=== PATIENT | male | born 1955 | race Caucasian/White ===

== ENCOUNTER → 2019-08-10 08:35 | Outpatient (CLI) | payer OTHER, SELFPAY ==
[2018-08-16 10:20] VITALS: BMI 27.2
[2019-08-10 11:03] LABS: AST(SGOT) 23 U/L (15-37); Alanine Aminotransfer ALT/SGPT 32 U/L (16-61); Albumin, Serum 3.8 g/dL (3.2-5.0); Alkaline Phosphatase 44 U/L (45-117); Bilirubin, Direct 0.14 mg/dL (0.00-0.30); Cholesterol 227 mg/dL (200); Globulin 3.1 g/dL (2.2-4.2); High Density Lipoprotein 59 mg/dL; Protein, Total 6.9 g/dL (6.4-8.2); Triglycerides 49 mg/dL; Very Low Density Lipoprotein 10 mg/dL (5-40)
== END ==
PROVIDERS: Nurse Practitioner Family; Family Provider Family Medicine; PCP Family Medicine; Referring Provider Internal Medicine Cardiovascular Disease; Visit Provider Internal Medicine Cardiovascular Disease
DX: E78.5 Hyperlipidemia, unspecified (principal)
CPT/HCPCS: 36415; 80061; 80076

== ENCOUNTER → 2020-08-22 08:16 | Outpatient (CLI) | payer BC, SELFPAY ==
[2019-08-17 13:27] VITALS: BMI 25.8
[2020-08-22 10:08] LABS: AST(SGOT) 25 U/L (15-37); Alanine Aminotransfer ALT/SGPT 36 U/L (16-61); Albumin, Serum 3.6 g/dL (3.2-5.0); Alkaline Phosphatase 43 U/L (45-117); Bilirubin, Direct 0.11 mg/dL (0.00-0.30); Cholesterol 205 mg/dL (200); Globulin 2.9 g/dL (2.2-4.2); High Density Lipoprotein 49 mg/dL; Protein, Total 6.5 g/dL (6.4-8.2); Triglycerides 64 mg/dL; Very Low Density Lipoprotein 13 mg/dL (5-40)
[2020-08-22 10:12] LABS: Anion Gap 5 (5-15); BUN 13 mg/dL (7-18); BUN/Creat Ratio 13.8 RATIO (10-20); Calcium,Total 8.8 mg/dL (8.5-10.1); Chloride 108 mmol/L (98-107); Creatinine, Serum 0.94 mg/dL (0.70-1.30); EST Glomerular Filtration Rate 86 mL/min (>60); Est Glom Filt Rate - Afr Amer 104 mL/min (>60); Glucose 97 mg/dL (74-106); PSA,Total - Annual Screen 0.83 ng/mL (0.00-4.00); Potassium 4.1 mmol/L (3.5-5.1); Sodium Level 142 mmol/L (136-145)
== END ==
PROVIDERS: PCP Family Medicine; Referring Provider Internal Medicine Cardiovascular Disease; Visit Provider Internal Medicine Cardiovascular Disease
DX: E78.5 Hyperlipidemia, unspecified (principal); Z13.1 Encounter for screening for diabetes mellitus; Z12.5 Encounter for screening for malignant neoplasm of prostate
CPT/HCPCS: 36415; 80048; 80061; 80076; 84153; G0103

== ENCOUNTER → 2020-09-18 06:13 | Outpatient (CLI) | payer BC, SELFPAY ==
[2020-08-27 15:08] VITALS: BMI 27.1
[2020-08-29 12:55] VITALS: BMI 27.1
--- NOTE | 2020-09-18 18:09 | STRESSREP_ITS ---
Stress Test Report Exercise myocardial perfusion stress test. 64-year-old man with a history of chest pain. Stress protocol: Resting EKG demonstrates sinus bradycardia with a rate of 55 bpm resting blood pressure is 142/82 mmHg. The patient exercised according to regular Ramez protocol for a total duration of 9 minutes. The maximum heart rate attained was 142 bpm which was 90% of maximum predicted heart rate the maximum workload was 10.1 metabolic equivalents. At rest there were no ST or T wave changes noted to suggest ischemia at peak exercise upsloping ST changes only were noted we did not meet the criteria for ischemia. No clinical angina was noted the test was terminated due to leg fatigue. The resting blood pressure was 142/82 with a pea k blood pressure 192/82 mmHg. Myocardial perfusion protocol. 12.0 mCi of technetium 99m sestamibi was injected at rest. The patient exercised according to regular Ramez protocol for 9 minutes at peak exercise 36.0 mCi of technetium 99m sestamibi was injected stress images were obtained stress and rest images were reconstructed and compared in the short axis vertical long horizontal long axis. Gated images were also obtained per Perfusion SPECT analysis: Review of the images demonstrate normal uptake of tracer noted in all areas of the myocardium the resting images similar demonstrate normal uptake of tracer noted in all areas of the myocardium. No reversibility is noted to suggest ischemia no previous infarct is noted. Gated SPECT analysis: The gated ejection fraction is 68%. Conclusion: Normal exercise myocardial perfusion stress test at a high workload. Preserved ejection fraction.
== END ==
PROVIDERS: PCP Family Medicine; Referring Provider Physician Assistant Medical; Visit Provider Physician Assistant Medical
DX: R00.2 Palpitations (principal); R06.00 Dyspnea, unspecified; E78.5 Hyperlipidemia, unspecified; Z82.49 Family history of ischemic heart disease and other diseases of the circulatory system
CPT/HCPCS: 78452; 93017; A9500; A4216

== ENCOUNTER → 2021-08-26 09:14 | Outpatient (CLI) | payer BC, SELFPAY ==
[2021-08-26 10:47] LABS: PSA,Total - Annual Screen 1.78 ng/mL (0.00-4.00)
[2021-08-27 13:23] LABS: Cholesterol 207 mg/dL (200); High Density Lipoprotein 46 mg/dL; Triglycerides 78 mg/dL; Very Low Density Lipoprotein 16 mg/dL (5-40)
== END ==
PROVIDERS: PCP Family Medicine; Referring Provider Family Medicine; Visit Provider Family Medicine
DX: Z12.5 Encounter for screening for malignant neoplasm of prostate (principal); E78.5 Hyperlipidemia, unspecified
CPT/HCPCS: 36415; 80061; 84153; G0103

== ENCOUNTER → 2022-11-30 | Outpatient (CLI) | payer MEDICARE, SELFPAY ==
[2022-11-30 10:49] LABS: ALB/GLOB Ratio 1.4 RATIO (0.9-2.4); AST(SGOT) 22 U/L (15-37); Alanine Aminotransfer ALT/SGPT 29 U/L (16-61); Albumin, Serum 3.9 g/dL (3.2-5.0); Alkaline Phosphatase 39 U/L (45-117); Anion Gap 7 (5-15); BUN 15 mg/dL (7-18); Calcium,Total 9.2 mg/dL (8.5-10.1); Chloride 109 mmol/L (98-107); Cholesterol 210 mg/dL (200); EST Glomerular Filtration Rate 80 mL/min (>60); Est Glom Filt Rate - Afr Amer 96 mL/min (>60); Globulin 2.8 g/dL (2.2-4.2); Glucose 96 mg/dL (74-106); High Density Lipoprotein 51 mg/dL; Potassium 4.4 mmol/L (3.5-5.1); Protein, Total 6.7 g/dL (6.4-8.2); Sodium Level 143 mmol/L (136-145); Triglycerides 72 mg/dL; Very Low Density Lipoprotein 14 mg/dL (5-40)
== END | disposition home or self-care (01) ==
LOC: MTLAB 08:44
PROVIDERS: PCP Family Medicine; Referring Provider Physician Assistant Medical; Visit Provider Physician Assistant Medical
DX: R03.0 Elevated blood-pressure reading, without diagnosis of hypertension (principal); E78.5 Hyperlipidemia, unspecified
CPT/HCPCS: 36415; 80053; 80061

== ENCOUNTER → 2023-08-03 | Outpatient (CLI) | payer MEDICARE, SELFPAY ==
[2023-08-03 09:52] LABS: ALB/GLOB Ratio 1.1 RATIO (0.9-2.4); AST(SGOT) 19 U/L (15-37); Alanine Aminotransfer ALT/SGPT 31 U/L (16-61); Albumin, Serum 3.6 g/dL (3.2-5.0); Alkaline Phosphatase 38 U/L (45-117); Anion Gap 4 (5-15); BUN 13 mg/dL (7-18); Calcium,Total 8.9 mg/dL (8.5-10.1); Chloride 110 mmol/L (98-107); Cholesterol 200 mg/dL (200); EST Glomerular Filtration Rate 80 mL/min (>60); Est Glom Filt Rate - Afr Amer 96 mL/min (>60); Globulin 3.3 g/dL (2.2-4.2); Glucose 104 mg/dL (74-106); High Density Lipoprotein 49 mg/dL; Protein, Total 6.9 g/dL (6.4-8.2); Sodium Level 143 mmol/L (136-145); Triglycerides 70 mg/dL; Very Low Density Lipoprotein 14 mg/dL (5-40)
== END | disposition home or self-care (01) ==
LOC: LAB 09:07
PROVIDERS: PCP Family Medicine; Referring Provider Physician Assistant Medical; Visit Provider Physician Assistant Medical
DX: E78.5 Hyperlipidemia, unspecified (principal); I10 Essential (primary) hypertension
CPT/HCPCS: 36415; 80053; 80061

== ENCOUNTER → 2023-11-25 | Outpatient (CLI) | payer MEDICARE, SELFPAY ==
[2023-11-25 12:49] LABS: PSA,Total - Annual Screen 1.97 ng/mL (0.00-4.00)
== END | disposition home or self-care (01) ==
LOC: MTLAB 10:38
PROVIDERS: PCP Family Medicine; Referring Provider Family Medicine; Visit Provider Family Medicine
DX: Z12.5 Encounter for screening for malignant neoplasm of prostate (principal)
CPT/HCPCS: 36415; 84153; G0103

== ENCOUNTER → 2024-08-04 | Outpatient (CLI) | payer MEDICARE, SELFPAY ==
[2024-08-04 10:16] LABS: Absolute Lymphocyte Count 0.87 X10^3/uL (0.83-4.51); Absolute Neutrophil Count 2.8 X10^3/uL (2.0-7.7); Basophil# 0.04 X10^3/uL; Basophil% 0.9 % (0-1); Eosinophil# 0.23 X10^3/uL; Eosinophils% 5.2 % (0-5); Hematocrit 40.9 % (40-54); Hemoglobin 14.1 g/dL (13.0-16.5); Lymphocyte # 0.87 X10^3/ul (0.83-4.51); Lymphocyte % 19.6 % (19-41); Mean Corp Hgb Conc 34.5 g/dL (32-36); Mean Corpuscular Hgb 31.5 pg (27.0-32.0); Mean Corpuscular Volume 91.5 fL (80-94); Mean Platelet Vol. 9.4 fl (6.2-12.0); Monocyte# 0.53 X10^3/uL; Monocyte% 11.9 % (0-10); NRBC Flagged by Analyzer 0 % (0-5); Neutrophil # 2.76 X10^3/uL (2.7-7.7); Neutrophil % 62.2 % (47-70); Platelet Count 221 K/mm3 (150-450); RBC Distribution Width CV 12.7 % (11.6-14.6); RBC Distribution Width SD 42.7 fl (35.1-43.9); Red Blood Count 4.47 M/mm3 (4.6-6.2); White Blood Count 4.4 K/mm3 (4.4-11.0)
[2024-08-04 11:08] LABS: AST(SGOT) 26 U/L (15-37); Alanine Aminotransfer ALT/SGPT 33 U/L (16-61); Albumin, Serum 3.1 g/dL (3.2-5.0); Alkaline Phosphatase 86 U/L (45-117); Bilirubin, Direct 0.11 mg/dL (0.00-0.30); Cholesterol 400 mg/dL (200); Globulin 3.4 g/dL (2.2-4.2); High Density Lipoprotein 44 mg/dL; Protein, Total 6.5 g/dL (6.4-8.2); Triglycerides 141 mg/dL; Very Low Density Lipoprotein 28 mg/dL (5-40)
[2024-08-04 11:17] LABS: ALB/GLOB Ratio 0.9 RATIO (0.9-2.4); AST(SGOT) 25 U/L (15-37); Alanine Aminotransfer ALT/SGPT 32 U/L (16-61); Albumin, Serum 3.2 g/dL (3.2-5.0); Alkaline Phosphatase 85 U/L (45-117); Anion Gap 5 (5-15); BUN 11 mg/dL (7-18); BUN/Creat Ratio 13.9 RATIO (10-20); Calcium,Total 9.2 mg/dL (8.5-10.1); Chloride 108 mmol/L (98-107); Cholesterol 397 mg/dL (200); Creatinine, Serum 0.79 mg/dL (0.70-1.30); EST Glomerular Filtration Rate 103 mL/min (>60); Est Glom Filt Rate - Afr Amer 125 mL/min (>60); Globulin 3.4 g/dL (2.2-4.2); Glucose 118 mg/dL (74-106); High Density Lipoprotein 46 mg/dL; Potassium 4.1 mmol/L (3.5-5.1); Protein, Total 6.6 g/dL (6.4-8.2); Sodium Level 141 mmol/L (136-145); Triglycerides 139 mg/dL; Very Low Density Lipoprotein 28 mg/dL (5-40)
[2024-08-04 15:11] LABS: Vitamin D,25 Hydroxy 39.7 ng/mL
== END | disposition home or self-care (01) ==
LOC: MTLAB 07:56
PROVIDERS: Physician Assistant Medical; PCP Family Medicine; Referring Provider Family Medicine; Visit Provider Family Medicine
DX: E78.5 Hyperlipidemia, unspecified (principal); Z12.5 Encounter for screening for malignant neoplasm of prostate; F32.A Depression, unspecified
CPT/HCPCS: 36415; 80053; 80061; 80076; 82306; 85025

== ENCOUNTER → 2024-12-14 | Outpatient (CLI) | payer MEDICARE, SELFPAY ==
--- NOTE | 2024-12-14 10:15 | RAD_ITS ---
STUDY: X-RAY - LEFT SHOULDER REASON FOR EXAM: Male, 68 years old. Ongoing left shoulder pain. TECHNIQUE: 4 views of the left shoulder. COMPARISON: None. FINDINGS: Normal glenohumeral articulation. There is hypertrophic acromioclavicular arthrosis. Normal acromion. There is enthesopathic subcortical cyst formation of the greater tuberosity of the humeral head. The soft tissue structures are unremarkable. There is no demonstrated fracture. Normal visualized pulmonary apex. RAD/Shoulder min 2 Views IMPRESSION: Hypertrophic acromioclavicular arthrosis. No demonstrated fracture. Electronically Signed: Sami Soctt MD at 12:12 EST ,
== END | disposition home or self-care (01) ==
LOC: MTRAD 10:10
PROVIDERS: PCP Family Medicine; Referring Provider Family Medicine; Visit Provider Family Medicine
DX: M25.512 Pain in left shoulder (principal)
CPT/HCPCS: 73030

== ENCOUNTER → 2025-01-08 | Outpatient (CLI) | payer MEDICARE, SELFPAY ==
--- NOTE | 2025-01-08 07:50 | AAAS_ITS ---
Reason For Study Reason For Study: Screening Aorta Measurements Aorta Doppler Measurements Proximal aorta measures1.98 x 1.98cm. in cross-sectional Peak systolic flow velocities within the proximal aorta axis. measure 86.8 cm/sec. Proximal aorta measures2.00cm. in longitudinal axis. Peak systolic flow velocities within the mid aorta measure Mid aorta measures1.49 x 1.49cm. in cross-sectional axis. 99.5 cm/sec. Mid aorta measures1.48cm. in longitudinal axis. Peak systolic flow velocities within the distal aorta Distal aorta measures1.38 x 1.41cm. in cross-sectional axis.measure 133.9 cm/sec. Distal aorta measures1.37cm. in longitudinal axis. Left Iliac Artery Left iliac artery measures 0.93 x 0.92 cm. in the cross-sectional axis. Left iliac artery measures 0.92 cm. in the longitudinal axis. Peak systolic velocity in the left iliac artery measures 129.3 cm/sec. Right Iliac Artery Right iliac artery measures 0.93 x 0.94 cm. in the cross-sectional axis. Right iliac artery measures 0.88 cm. in the longitudinal axis. Peak systolic velocity in the right iliac artery measures 131.5 cm/sec. Procedure Aorta IVC Iliac vasculature or bypass grafts [id number]. Exam performed in department. VL/AAA Screening Interpretation Summary The dimensions of the intra-abdominal aorta appear normal, without evidence of aneurysmal dilatation. The iliac arteries also appear normal in caliber bilaterally. The intra-abdominal aorta and iliac arteries appear patent, demonstrating normal, pulsatile arterial flow and normal peak systolic velocities. Ordering Physician: Jimmie Coffman Referring Physician: Jimmie Coffman Performed By: Leti Garzon RVT
== END | disposition home or self-care (01) ==
LOC: CVS 07:49
PROVIDERS: PCP Family Medicine; Referring Provider Family Medicine; Visit Provider Family Medicine
DX: Z13.6 Encounter for screening for cardiovascular disorders (principal)
CPT/HCPCS: 76706

== ENCOUNTER → 2025-02-20 | Outpatient (CLI) | payer MEDICARE, SELFPAY ==
--- NOTE | 2025-02-20 16:45 | MRI_ITS ---
EXAM: Noncontrast left shoulder MRI CLINICAL HISTORY: Left shoulder pain. Injury 1 year COMPARISON: None TECHNIQUE: Multi planar, multi sequence noncontrast MR imaging of the left shoulder is performed. FINDINGS: High-grade full-thickness tear of the supraspinatus the tendon is retracted to the level of the glenoid process. High-grade tears of the infraspinatus and subscapularis. The biceps tendon is not normally located within the bicipital groove very small portion of the tendon is identified in the distal groove. A subacromial/subdeltoid effusion is present. High-grade tear of the subscapularis tendon. The residual tendon is intermediate signal in its distal aspect and has a wavy appearance. The inferior glenohumeral ligament is intact. The glenoid labrum is intact. MRI/Upper Ext Joint Only(Routine) IMPRESSION: Full thickness complete tear of the supraspinatus tendon which is retracted to the level of the glenoid process. high-grade tears and tendinosis of the remainder of the rotator cuff. Tear of the biceps tendon. [facility]
== END | disposition home or self-care (01) ==
LOC: MRI 15:48
PROVIDERS: PCP Family Medicine; Referring Provider Family Medicine; Visit Provider Family Medicine
DX: M25.512 Pain in left shoulder (principal)
CPT/HCPCS: 73221

== ENCOUNTER → 2025-10-17 | Outpatient (CLI) | payer MEDICARE, SELFPAY ==
[2025-10-17 13:08] LABS: Cholesterol 449 mg/dL (<=200); Low Density Lipoprotein Calc. 362 mg/dL; Triglycerides 172 mg/dL; Very Low Density Lipoprotein 34 mg/dL (5-40); cholesterol:hdl ratio screen 8.91
== END | disposition home or self-care (01) ==
LOC: LAB 08:57
PROVIDERS: PCP Family Medicine; Referring Provider Student in an Organized Health Care Education/Training Program; Visit Provider Student in an Organized Health Care Education/Training Program
DX: E78.5 Hyperlipidemia, unspecified (principal)
CPT/HCPCS: 36415; 80061

== ENCOUNTER 2025-11-18 18:09 | Observation (INO) | payer MEDICARE, SELFPAY ==
[2025-11-18 18:10] VITALS: BP 171/85; PULSE 72; RESP 16; TEMP 36.8; O2SAT 100; BMI 25.9
--- NOTE | 2025-11-18 18:20 | EDS_ITS ---
HPI History of Present Illness Chief Complaint: Confusion [facility] Medical History (Updated 11/18/25 @ 21:[address] Milagros García MD) Encounter for examination required by Department of Transportation (DOT) Left rotator cuff tear Essential hypertension (~10/17/25) HLD (hyperlipidemia) Home Medications ?Medication ?Instructions ?Recorded ?Last Taken ?Type citalopram 40 mg tablet 40 mg PO DAILY 04/02/23 Unkn own History lisinopril 30 mg tablet 30 mg PO QDAY PRN htn Unknown History rosuvastatin 40 mg tablet 40 mg PO DAILY #90 tabs 04/15 Unknown Rx Allergy/AdvReac Type Severity Reaction Status Date / Time No Known Allergies Allergy Verified 11/18/25 18:11 Family History Father CAD (coronary artery disease) Mother HLD (hyperlipidemia) Brother Myocardial infarction Brother Myocardial infarction Surgical History History of hernia surgery Social History Smoking Status: Never smoker alcohol intake: former year quit: 2018 EXAM Physical Exam Const Vital Signs: 11/18/25 18:10 11/18/25 19:10 11/18/25 20:17 Temperature 98.2 F Temperature Source Oral Pulse Rate 72 62 57 L Respiratory Rate 16 18 11 L Blood Pressure 171/85 H 158/85 H 161/88 H Blood Pressure Mean 113 109 112 Pulse Ox 100 98 98 Oxygen Delivery Method Room Air Room Air 11/18/25 20:44 Temperature 98.2 F Temperature Source Pulse Rate 57 L Respiratory Rate 11 L Blood Pressure 161/88 H Blood Pressure Mean 112 Pulse Ox 98 Oxygen Delivery Method MDM MDM MDM Narrative Medical decision making narrative: HISTORY OF PRESENT ILLNESS: Chief complaint: Confusion 69-year-old male history of hypertension, hyperlipidemia presents with confusion. He is coming by his son and daughter. They state this afternoon he all of a sudden became amnestic to the earlier events in the day. They deny any trouble with speech, facial drooping, focal weakness falls or trauma. No recent illnesses. The patient denies chest pain, shortness of breath. Denies any urinary complaints peer denies any drug use. Denies history of similar events. Denies history of seizures REVIEW OF SYSTEMS: Pertinent positives: Confusion Pertinent negatives: Chest pain, syncope, nausea vomiting, recent illness PHYSICAL EXAM: Nursing triage notes reviewed, Vital signs reviewed Constitutional: please see [facility] HENT: MMM Eyes: Pupils equal round and reactive to light, Extraocular muscles intact Neck: No stridor, no JVD, full neck ROM Lungs: Clear to auscultation, No wheezing or rales. No increased work of breathing, no conversational dyspnea, no accessory muscle use, no nasal flaring. No respiratory distress noted Heart: Regular rate and rhythm, No murmurs, No rubs and No gallops, 2+ distal pulses (radial, femoral, posterior tibial) in all extremities Abdomen: Soft, there is no tenderness, rigidity, rebound or guarding, no obvious peritoneal signs, no palpable pulsatile abdominal masses, no auscultated abdominal bruit : No CVAT Extremities: No edema Neuro: Alert and oriented to person place and time although he required some prompting to know the correct his correct age and the correct month. He had no focal deficits. He had no cranial nerve deficits. He had 5 of 5 strength in bilateral upper and lower extremities. And intact sensation bilateral upper and lower extremities. No ataxia. He had no aphasia or dysarthria. Skin: No rash or lesions noted MEDICAL DECISION MAKING: Chief Complaint: please see [facility] External records reviewed: Reviewed prior imaging. Factors affecting care: As per [facility] Social determinants of health: Denies drugs History obtained from others: Family Consults: Internal medicine Dr. Sander Sharma [facility] Narrative: Patient was initially hemodynamically stable, afebrile and nontoxic-appearing. My initial neurologic exam was intact. He had an NIH of 0. Because his NIH was 0 for me I did not activate a stroke team. He was not a candidate for TNK or thrombectomy at this time I considered the following differential diagnosis: ICH, acute CVA, TIA, transient global amnesia, focal seizure, toxic or metabolic or infectious encephalopathy I obtained a broad lab and imaging work to further determine if the patient was suffering from a life-threatening etiology. ALL IMAGES (IF OBTAINED) HAVE BEEN PERSONALLY REVIEWED AND INTERPRETED BY MYSELF. EKG with normal sinus rhythm rate 63, left activation, normal intervals, no STEMI I have personally reviewed the patient's chest x-ray. Chest x-ray is unremarkable for pulmonary edema, pneumothorax, pneumonia or focal cardiopulmonary abnormality. CT scan of the head shows no ICH or stroke CT of the head neck shows no evidence of large vessel occlusion No coagulopathy Urine drug screen negative for toxic ingestion Serum alcohol negative CBC without leukocytosis, severe anemia, no thrombocytopenia. CMP without evidence of acute kidney injury, significant electrolyte abnormality, anion gap to suggest end organ hypo-perfusion, no evidence of metabolic acidosis with a normal bicarbonate, no evidence of hepatobiliary obstructive pathology. Thyroid studies suggest no evidence of hyper or hypothyroidism Urinalysis shows no evidence of urinary inflammation suggestive of UTI The synthesis of the patient's history, physical exam, labs images suggest no acute finding however given his altered mental status patient to be admitted for further observation and likely confirmatory MRI. His presentation may be related to transient global amnesia. Discussed with hospitalist agreed to admit the patient. The patient and/or family, caregivers express understanding. The patient and/or family, caregivers agrees with the plan. Shared decision making: I will have a discussion with the patient and or visitors regarding risk/benefits of further testing or admission. They will be made aware of of the risk/benefits inherent in this decision they will be given the opportunity to voice understanding. Total critical care time today provided was at least 0 minutes. This excludes separately billable procedures. Critical care time (if documented) is secondary to the patient having high probability of clinically significant/life threatening deterioration in the patient's condition which required my urgent intervention. Impression: 1. Altered mental status 2. History of hypertension 3. History of hyperlipidemia Dispo: Admit to [facility] This note was generated with [employer] dictation software. It may contain incorrect words, spelling, and punctuation that were not noted in review of the chart prior to signing. Lab Data Labs: Laboratory Results - last 24 hr 11/18/25 11/18/25 11/18/25 18:32 19:05 19:14 WBC 5.7 RBC 4.75 Hgb 14.5 Hct 40.7 MCV 85.7 MCH 30.5 MCHC 35.6 RDW Std Deviation 39.4 RDW Coeff of [place] 12.7 Plt Count 249 MPV 9.0 Immature Gran % (Auto) 0.200 Neut % (Auto) 62.6 Lymph % (Auto) 21.9 Rice % (Auto) 11.7 H Eos % (Auto) 2.6 Baso % (Auto) 1.0 Absolute Neuts (auto) 3.6 Absolute Lymphs (auto) 1.25 Nucleated RBC % 0 PT 12.9 INR 1.0 APTT 28.5 Sodium 140 Potassium 4.0 Chloride 104 Carbon Dioxide 25.5 Anion Gap 11 BUN 14 Creatinine 0.89 Estim Creat Clear Calc 74.27 Est GFR (MDRD) Non-Af 93 BUN/Creatinine Ratio 15.2 Glucose 84 Calcium 9.5 Total Bilirubin 0.39 AST 39 H ALT 45 Alkaline Phosphatase 78 Ammonia 28.4 Total Protein 6.7 Albumin 4.2 Globulin 2.5 Albumin/Globulin Ratio 1.6 TSH 5.900 H Free T4 0.80 Free T3 pg/dL 2.9 Urine Color Straw Urine Clarity Clear Urine pH 7.0 Ur Specific [place] 1.010 Urine Protein 15 H Urine Glucose (UA) Normal Urine Ketones Negative Urine Occult Blood Negative Urine Nitrite Negative Urine Bilirubin Negative Urine Urobilinogen Normal Ur Leukocyte Esterase Negative Urine RBC 0 SEEN Urine WBC 0 SEEN Ur Squamous Epith Cells 0 SEEN Urine Bacteria 1+ Urine Mucus 0 SEEN Urine Opiates Screen NEGATIVE U Buprenorphine Qual NEGATIVE Ur Oxycodone Screen NEGATIVE Urine Methadone Screen NEGATIVE Urine Fentanyl Screen NEGATIVE Ur Barbiturates Screen NEGATIVE Ur Phencyclidine Scrn NEGATIVE Ur Amphetamines Screen NEGATIVE U Benzodiazepines Scrn NEGATIVE Urine Cocaine Screen NEGATIVE U Cannabinoids Screen NEGATIVE Ethyl Alcohol < 10.1 Radiography Diagnostic Testing: Clinical Impression(s) from Imaging Studies Brain CT 11/18/25 18:40 IMPRESSION: No acute intracranial abnormalities. Reading Location: [facility] Head/Neck CTA 11/18/25 18:40 IMPRESSION: No acute vascular abnormalities of the head or neck. Reading Location: [facility] Chest X-Ray 11/18/25 18:45 IMPRESSION: No acute cardiopulmonary findings. Reading Location: [facility] Discharge Plan Disposition Disposition: Acute Care Hospital [facility] Discharge Date/Time: 11/18/25 21:03
--- NOTE | 2025-11-18 18:32 | EKG12_ITS ---
Test Reason : DYSRHYTHMIA Blood Pressure : */* mmHG Vent. Rate : 63 BPM Atrial Rate : 63 BPM P-R Int : 166 ms QRS Dur : 90 ms QT Int : 406 ms P-R-T Axes : 50 -15 13 degrees QTcB Int : 415 ms Normal sinus rhythm Normal ECG Confirmed by Horacio Reynoso ([id number]), newspaper copy editor GUILLERMO SAUNDERS ([id number]) on 11/20/2025 10:00:32 AM Referred By: Confirmed By: Horacio Reynoso
--- NOTE | 2025-11-18 18:40 | CT_ITS ---
PROCEDURE: BRAIN/HEAD WITHOUT CONTRAST 11/18/2025 REASON FOR EXAM: AMS TECHNIQUE: Procedure Code: CTBR Modality: CT Procedure: BRAIN/HEAD WITHOUT CONTRAST Coronal and Sagittal reconstruction series were provided. One or more dose reduction techniques were used (e.g., Automated exposure control, adjustment of the mA and/or kV according to patient size, use of iterative reconstruction technique. RADIATION DOSE SUMMARY: DLP: 1428.27 mGycm FINDINGS: Brain: Normal CSF Spaces: Normal Sinuses/Mastoids: Clear at visualized levels Bones: No fractures. CT/Brain/Head without Contrast IMPRESSION: No acute intracranial abnormalities. Reading Location: [id number]
--- NOTE | 2025-11-18 18:40 | CT_ITS ---
PROCEDURE: CTA HEAD AND NECK W/ CONTRAST 11/18/2025 REASON FOR EXAM: AMS TECHNIQUE: Procedure Code: CTCTA.HDNCK Modality: CT Procedure: CTA HEAD AND NECK W/ CONTRAST Multiplanar Sagittal and Coronal images were obtained. One or more dose reduction techniques were used (e.g., Automated exposure control, adjustment of the mA and/or kV according to patient size, use of iterative reconstruction technique). RADIATION DOSE SUMMARY: DLP: 1428.27 mGycm FINDINGS: The aortic arch configuration is unremarkable. The bilateral subclavian arteries are well opacified with no filling defects or occlusive lesions. Both vertebral arteries arise from their respective subclavian arteries. The left vertebral artery is dominant. The vertebral arteries are patent. The basilar artery is unremarkable. The bilateral bakery machine mechanic supervisor are unremarkable. Both common carotid arteries are well opacified with no significant atherosclerotic disease at either carotid bulb. Both internal carotid arteries are well opacified. Both MCAs and both ACAs are well opacified. There are no aneurysms. There are no dissections. The lung apices are unremarkable. CT/CTA Head AND Neck W/ Contrast IMPRESSION: No acute vascular abnormalities of the head or neck. Reading Location: [id number]
[2025-11-18 18:43] LABS: Hematocrit 40.7 % (40-54); Hemoglobin 14.5 g/dL (13.0-16.5); Immature Granulocytes Count 0.010 X10^3/uL (0.0-0.0); Mean Corp Hgb Conc 35.6 g/dL (32-36); Mean Corpuscular Volume 85.7 fL (80-94); Mean Platelet Vol. 9.0 fl (6.2-12.0); NRBC Flagged by Analyzer 0 % (0-5); Platelet Count 249 K/mm3 (150-450); RBC Distribution Width CV 12.7 % (11.6-14.6); RBC Distribution Width SD 39.4 fl (35.1-43.9); Red Blood Count 4.75 M/mm3 (4.6-6.2); White Blood Count 5.7 K/mm3 (4.4-11.0)
--- NOTE | 2025-11-18 18:45 | RAD_ITS ---
PROCEDURE: CHEST 1 VIEW (PORTABLE) 11/18/2025 REASON FOR EXAM: AMS TECHNIQUE: Frontal view of the chest. FINDINGS: There are no focal opacities, pleural effusions, or pneumothoraces. The heart size is unremarkable. The upper abdomen is unremarkable. The osseous structures are intact. RAD/Chest 1 View (Portable) IMPRESSION: No acute cardiopulmonary findings. Reading Location: [id number]
--- OUTSIDE RECORDS SUMMARY | 2025-11-18 18:47 | XMS RPT_ITS | CCD ---
Author Organization [facility] Care Team Providers Care Bundle Cutter Name Role Phone MD Gibbons Cyril S Unavailable KB Jane, Radha Xiao Unavailable Adithya Kam Unavailable Unavailable Kristen AZEVEDO, Corina Tatum Unavailable Unavailable KETAN GIBBONS Unavailable Unavailable PURNIMA SCOTT Unavailable Unavailable EMPLOYMENT, PHYSICAL Unavailable Unavailable Adithya Kam Unavailable Unavailable KB Jane, Radha Xiao Unavailable [phone] Adithya Kam Unavailable Unavailable PURNIMA MACEDO DO Primary Care Physician Dr. Purnima Macedo Primary Care Provider Dr. Purnima Macedo Referring Provider PRABHA Rider Attending Provider DO Alondra Licea Primary Care Provider DO Alondra Licea Referring Provider DO Alondra Licea Primary Care Provider DO Alondra Licea Referring Provider PRABHA Rider Attending Provider DO Alondra Licea Primary Care Provider DO Alondra Licea Referring Provider PRABHA Rider Attending Provider Jimmie Coffman MD Primary Care Provider Jimmie Coffman MD Attending Provider Jimmie Coffman MD Referring Provider Alfred PIERCE, Dr. Jaron Tatum Attending Provider Augustus PIERCE, Jimmie Primary Care Provider Augustus PIERCE, Jimmie Referring Provider Jeovany Castle Attending Provider Augustus, Chalon Referring Unavailable Radha Rider Attending Unavail able Augustus, Chalon Primary Care Unavailable Augustus, Chalon Referring Unavailable Jane PA, Radha Xiao Consulting Unavail able Augustus, Chalon Primary Care Unavailable Augustus, Chalon Attending Unavailable Augustus, Chalon Primary Care Unavailable Augustus, Chalon Attending Unavailable Augustus, Chalon Referring Unavailable Augustus, Chalon Primary Care Unavailable Augustus, Chalon Attending Unavailable Augustus, Chalon Referring Unavailable Jane PA, Radha Xiao Attending Unavail able AnujaAlondra Primary Care Unavailable Alondra Licea Referring Unavailable Augustus, Chalon Primary Care Unavailable Feliz Jacobsen Attending Unavailable Augustus, Chalon Referring Unavailable Augustus, Chalon Primary Care Unavailable Jeovany Castle Attending Unavailable Augustus, Chalon Referring Unavailable Augustus, Chalon Primary Care Unavailable Augustus, Jeremyon Attending Unavailable Augustus, Chalon Referring Unavailable JaneRadha Mcginnis Attending Unavail able Augustus, Chalon Primary Care Unavailable Allergies Allergy Classification Reported Allergen(s) Allergy Type Date of Onset Reaction(s) Facility (1 source) atorvastatin; Translations: [atorvastatin] Drug Allergy [facility] Medications Current Medications Medication Drug Class(es) Dates Sig (Normalized) Sig (Original) citalopram 40 mg oral tablet (18 sources) Serotonin Reuptake Inhibitor Start: 04-02-2023 take 1 tablet by mouth once daily Citalopram 40 mg tablet Active 40 mg PO DAILY April 02, 2023 9:54am Start: 10-07-2020 citalopram 40 mg oral tablet 0 Refill(s) Start Date: 10/07/20 Status: Ordered Start: 08-27-2020 End: 04-02-2023 Citalopram 40 mg tablet Disc ontinued 20 mg PO DAILY August 27, 2020 12:00am April 02, 2023 9:55am Start: 08-27-2020 End: 04-02-2023 take 20 mg by mouth once daily Citalopram Discontinued 20 MG PO DAILY August 26, 2020 11:00pm April 02, 2023 8:55am Start: 05-22-2015 take 1 tablet by wily th once daily CITALOPRAM HYDROBROMIDE 40 MG TABS One tablet by mouth daily CITALOPRAM HYDROBROMIDE [id number] Ketan Gibbons MD Multivitamin (Daily Multi-Vitamin) tablet (5 sources) Start: 08-16-2018 Multivitamin ( Daily Multi-Vitamin) tablet Active 1 {tbl} PO DAILY August 16, 2018 12:00am Start: 08-16-2018 take 1 tablet by wily th once daily Multivitamin (Daily Multi-Vitamin) tablet Active 1 TABLET PO DAILY August 16, 2018 12:00am Start: 08-16-2018 take 1 tablet by wily th once daily Multivitamin (Daily Multi-Vitamin) tablet Active 1 TABLET PO DAILY August 15, 2018 11:00pm Completed/Discontinued Medications Medication Drug Class(es) Dates Sig (Normalized) Sig (Original) aspirin 81 mg delayed release oral tablet (19 sources) Platelet Aggregation Inhibitor, Nonsteroidal Anti-inflammatory Drug Start: 08-16-2018 End: 03-01-2025 take 1 tablet by mouth once daily Aspirin (Adult Aspirin Regimen) 81 mg tablet,delayed release (DR/EC) Discontinued 81 mg PO DAILY August 16, 2018 12:00am March 01, 2025 1:20pm Start: 11-10-2011 take 1 tablet by wily th once daily ASPIRIN 81 MG TABS One tablet by mouth daily ASPIRIN [id number] Adelaida Bennett RN Start: 11-10-2011 take 1 tablet by wily th once daily ASPIRIN 81 MG TABS One tablet by mouth daily ASPIRIN [id number] Adelaida Bennett RN Start: 11-10-2011 take 1 tablet by wily th once daily ASPIRIN EC 81 MG TBEC One tablet by mouth daily ASPIRIN [id number] Corina Peterson RN atorvastatin 40 mg oral tablet (20 sources) HMG-CoA Reductase Inhibitor Start: 10-17-2024 End: 03-01-2025 take 1 tablet by mouth at bedtime Atorvastatin 40 mg tablet Discontinued 40 mg PO AT BEDTIME 90 3 October 17 2024 1:00am March 01, 2025 1:20pm Start: 11-10-2011 End: 05-02-2014 take 1 tablet by mouth once daily LIPITOR 80 MG TABS One tablet by mouth daily ATORVASTATIN CALCIUM [id number] Ketan Gibbons MD fenofibrate 145 mg oral tablet (20 sources) Peroxisome Proliferator Receptor alpha Agonist Start: 07-20-2018 End: 10-17-2024 take 1 tablet by mouth once daily Fenofibrate Nanocrystallized 145 mg tablet Discontinued 145 mg PO DAILY 90 September 21, 2022 10:21am October 17, 2024 11:27am Start: 09-29-2012 take 1 tablet by wily th once daily TRICOR 145 MG TABS One tablet by mouth daily FENOFIBRATE 32955144830 Ketan Gibbons MD ferrous sulfate 325 mg oral tablet (16 sources) Start: 11-10-2011 End: 05-21-2016 take 1 tablet by mouth once daily FERROUS SULFATE 325 (65 Fe) MG TABS One tablet by mouth daily FERROUS SULFATE [id number] Radha Jane PA-C Fish Oils (20 sources) Start: 11-10-2011 End: 05-21-2016 take 2 tablets by mouth once daily FISH OIL CAPS Two tablets by mouth daily OMEGA-3 FATTY ACIDS CAPS 73096056886 Radha Jane PA-C Start: 11-10-2011 take 2 tablets by mo [facility] once daily FISH OIL CAPS Two tablets by mouth daily OMEGA-3 FATTY ACIDS CAPS 34491787489 Niyah Roberts RN Start: 11-10-2011 take 1 tablet by wily once daily FISH OIL CAPS One tablet by mouth daily OMEGA-3 FATTY ACIDS CAPS 43540774788 Adelaida Bennett RN lisinopril 10 mg oral tablet (11 sources) Angiotensin Converting Enzyme Inhibitor Start: 04-02-2023 End: 03-01-2025 take 1 tablet by mouth once daily Lisinopril 10 mg tablet Discontinued 10 mg PO DAILY 90 May 12, 2024 8:55am March 01, 2025 1:20pm Start: 12-04-2022 End: 04-02-2023 take 1 tablet by mouth once daily Lisinopril 5 mg tablet Discontinued 5 mg PO DAILY 90 3 December 04, 2022 1:00am April 02, 2023 10:34am MULTIPLE VITAMIN (5 sources) Start: 11-10-2011 take 1 tablet by mouth once daily MULTIVITAMINS TABS One tablet by mouth daily MULTIPLE VITAMIN [id number] Adelaida Bennett RN MULTIPLE VITAMIN (3 sources) Start: 11-10-2011 take 1 tablet by mouth once daily MULTIVITAMINS TABS One tablet by mouth daily MULTIPLE VITAMIN [id number] Adelaida Bennett RN rosuvastatin calcium 40 mg oral tablet (20 sources) HMG-CoA Reductase Inhibitor Start: 07-20-2018 End: 10-17-2024 take 1 tablet by mouth once daily Rosuvastatin 40 mg tablet Discontinued 40 mg PO DAILY 90 3 July 14, 2023 5:51pm October 17, 2024 11:27am Start: 05-02-2014 take 1 tablet by wily th once daily CRESTOR 40 MG TABS One tablet by mouth daily ROSUVASTATIN CALCIUM [id number] Ketan Gibbons MD Problems Active Problems Problem Classification Problem Date Documented Da te Episodic/Chronic Coronary atherosclerosis and other heart disease (13 sources) Coronary arteriosclerosis; Translations: [Atherosclerotic heart disease of [place] coronary artery without angina pectoris] Onset: 11-10-2011 Resolved: 06-18-2017 06-18-2017 Chronic Disorders of lipid metabolism (18 sources) Hyperlipidemia; Translations: [Hyperlipidemia, unspecified] Onset: 11-10-2011 11-10-2011 Chronic Essential hypertension (9 sources) Essential hypertension; Translations: [Essential (primary) hypertension] Onset: 10-17-2024 12-04-2022 Chronic Other circulatory disease (5 sources) Elevated blood-pressure reading without diagnosis of hypertension; Translations: [Elevated blood-pressure reading, without diagnosis of hypertension] 09-01-2022 Episodic Other circulatory disease (1 source) Elevated blood-pressure reading, without diagnosis of hypertension; Translations: [Elevated blood pressure reading without diagnosis of hypertension] 09-01-2022 Episodic Other connective tissue disease (1 source) Tear of left rotator cuff; Translations: [Unspecified rotator cuff tear or rupture of left shoulder, not specified as traumatic] 03-01-2025 Episodic Unclassified (3 sources) Long-term drug therapy; Translations: [Other intermodal customer service (current) drug therapy] Onset: 11-10-2011 11-10-2011 Past or Other Problems Problem Classification Problem Date Documented Date Episodic/Chronic Other aftercare (5 sources) Other intermodal customer service (current) drug therapy; Translations: [Other intermodal customer service (current) drug therapy] Onset: 11-10-2011 11-10-2011 Episodic Other non-traumatic joint disorders (1 source) Pain in left shoulder; Translations: [Pain in left shoulder] Onset: 02-26-2025 Episodic Other nutritional; endocrine; and metabolic disorders (8 sources) Body mass index (BMI) 26.0-26.9, adult; Translations: [Body mass index (BMI) 26.0-26.9, adult] Onset: 05-21-2016 05-21-2016 Episodic Other screening for suspected conditions (not mental disorders or infectious disease) (1 source) Encounter for screening for cardiovascular disorders; Translations: [Encounter for screening for cardiovascular disorders] Onset: 01-23-2025 Episodic Residual codes; unclassified (8 sources) Family history of ischemic heart disease and other diseases of the circulatory system; Translations: [Family history of ischemic heart disease and other diseases of the circulatory system] Onset: 05-21-2016 05-21-2016 Episodic Results Test Name Value Interpretation Reference Range Facility Urgent Care Visit Reporton 0 07-11-2025 Urgent Care Visit Report [facility] [address] [place] [address] OFFICE VISIT Date of Service: 07/11/25 MR#: [id number] Acct: [id number] Name: SATINDER ABBASI Rep #: [id number] : 1955 Provider: PRABHA Weaver Age/Sex: 69/M [place] [facility] Status: Signed Intake Vital Signs 03/01/25 13:19 Height 5 ft 7 in Weight: 161 lb 8 oz BMI 25.2 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 Allergies No Known Allergies Allergy (Verified 03/01/25 13:20) Have you fallen in the past year?: No [facility] Medical History (Updated 07/11/25 @ 14:35 by Jeovany ARMANDO PA) Encounter for examination required by Department of Transportation (DOT) Left rotator cuff tear Essential hypertension HLD (hyperlipidemia) Surgical History History of hernia surgery Family History Father CAD (coronary artery disease) Mother HLD (hyperlipidemia) Brother Myocardial infarction Brother Myocardial infarction Social History Smoking Status: Former smoker alcohol intake: former year quit: 2018 HPI HPI Details: SATINDER ABBASI, is a 69 M who presents to the office today for Office Procedures Physical Exam Coding PE Coding DOT PE: Yes Coding Level of Care Code Attention Yadira Diagnoses Encounter for examination required by Department of Transportation (DOT) Z02.89 Assessment and Plan Assessment and Plan (1) Encounter for examination required by Department of Transportation (DOT): Status: Acute Clinical Quality Measures Falls Risk Screening/Assistive Devices Have you fallen in the past year?: No 07/11/25 1436 Date Jeovany Mcwilliamsigntran Signature: Date (if applicable) CC: Normal [facility] Orthopedic Visit Reporton Orthopedic Visit Report [facility] [address] [place] [address] [address] [place] [address] OFFICE VISIT Date of Service: 03/01/25 MR#: [id number] Acct: [id number] Name: SATINDER ABBASI Rep #: [id number] : 1955 Provider: Dr. Feliz nieto MD Age/Sex: 69/M [place] [facility] [place]: Signed Intake Vital Signs 10/17/24 10:25 04/10/25 08:43 03/01/25 13:19 Height 5 ft 7 in 5 ft 7 in 5 ft 7 in Weight: 161 lb 8 oz BMI 25.2 Intake Visit Reasons: LEFT SHOULDER Chief Complaint: Left Shoulder Pain Accompanied by: Self Is patient in pain?: Yes Pain scale (1-10): 1 Allergies No Known Allergies Allergy (Verified 03/01/25 13:20) Medications ???Medication ???Instructions ???Recorded ???Confirmed ???Type multivitamin (Daily Multi-Vitamin 1 tab PO DAILY 08/16/18 03/01/25 History tablet) citalopram 40 mg tablet 40 mg PO DAILY 04/02/23 03/01/25 H istory Have you fallen in the past year?: Yes (slipped and fell - tried to catch himself) [facility] Medical History (Updated 03/01/25 @ 13:44 by Feliz Jacobsen MD) Left rotator cuff tear Essential hypertension HLD (hyperlipidemia) Surgical History History of hernia surgery Family History Father CAD (coronary artery disease) Mother HLD (hyperlipidemia) Brother Myocardial infarction Brother Myocardial infarction Social History Smoking Status: Former smoker alcohol intake: former year quit: 2019 HPI LEFT SHOULDER Details: This documentation accurately reflects the service provided and the decisions made by me, Dr. Feliz Jacobsen MD 03/01/25 0908. Part of today???s visit was documented by [ ], acting as scribe. SATINDER ABBASI is a 69 year old M here today for L shoulder pain, weakness. lots of mobility. 2/10 pain. hurts a bit sometimes. once in a while per him. had 2 injures. 1 a year ago pulled on the arm out of a truck. injection helping quite a bit. RHD. Initial injury was 1 year ago and in the fall he reinjured it and then reinjured it again 6 weeks ago. Patient had an injection with Dr. Coffman and it really helped his pain. About a month ago his pain was pretty severe and he was set on needing to have surgery it was so painful. Supplemental Info [facility] [address] [place], [place] [id number] Shoulder min 2 Views MR#: [id number] Acct: [id number] Name: SATINDER ABBASI Rep #: [id number] : 1955 M 68 From: Sami Scott MD PCP: Dr. Jimmie Coffman MD Status: REG CLI Study: Shoulder min 2 Views Date of Exam: 12/14/24 Exam# [id number] Ordering Dr: Jimmie Coffman MD [id number] STUDY: X-RAY - LEFT SHOULDER REASON FOR EXAM: Male, 68 years old. Ongoing left shoulder pain. TECHNIQUE: 4 views of the left shoulder. COMPARISON: None. FINDINGS: Normal glenohumeral articulation. There is hypertrophic acromioclavicular arthrosis. Normal acromion. There is enthesopathic subcortical cyst formation of the greater tuberosity of the humeral head. The soft tissue structures are unremarkable. There is no demonstrated fracture. Normal visualized pulmonary apex. RAD/Shoulder min 2 Views IMPRESSION: Hypertrophic acromioclavicular arthrosis. No demonstrated fracture. Electronically Signed: Sami Scott MD at 12:12 EST , [facility] [address] [place] [id number] Upper Ext Joint Only(Routine) MR#: [id number] Acct: [id number] Name: SATINDER ABBASI Rep #: [id number] : 1955 M 69 From: Kevyn Mccarty DO PCP: Dr. Jimmie Coffman MD Status: REG CLI Study: Upper Ext Joint Only(Routine) Date of Exam: 02/20/25 Exam# [id number] Ordering Dr: Jimmie Coffman MD EXAM: Noncontrast left shoulder MRI CLINICAL HISTORY: Left shoulder pain. Injury 1 year COMPARISON: None TECHNIQUE: Multi planar, multi sequence noncontrast MR imaging of the left shoulder is performed. FINDINGS: High-grade full-thickness tear of the supraspinatus the tendon is retracted to the level of the glenoid process. High-grade tears of the infraspinatus and mai (more content not included)... Normal [facility] Magnetic resonance imaging r eportOrdered By: Kevyn Mccatry on 02-23-2025 Study report [facility] [address] [place] [address] Upper Ext Joint Only(Routine) MR#: [id number] Acct: [id number] Name: SATINDER ABBASI Rep #: [id number] : 1955 M 69 From: Angelito Mccarty DO PCP: Dr. Jimmie Coffman MD Status: REG CL I Study:Upper Ext Joint Only(Routine) Date of Exam: 02/20/25 Exam# [id number] Ordering Dr: Mariposa Coffman MD EXAM: Noncontrast left shoulder MRI CLINICAL HISTORY: Left shoulder pain. Injury 1 year COMPARISON: None TECHNIQUE: Multi planar, multi sequence noncontrast MR imaging of the left shoulder is performed. FINDINGS: High-grade full-thickness tear of the supraspinatus the tendon is retracted to the level of the glenoid process. High-grade tears of the infraspinatus and subscapularis. The biceps tendon is not normallylocated within the bicipital groove very small portion of the tendon is identified in the distal groove. A subacromial/subdeltoi d effusion is present. High-grade tear of the subscapularis tendon. The residual tendon is intermediate signal in its distal aspect and has a wavy appearance. The inferior glenohumeral ligament is intact. The glenoid labrum is intact. MRI/Upper Ext Joint Only(Routine) IMPRESSION: Full thickness complete tear of the supraspinatus tendon which is retracted to the level of the glenoid process. high-grade tears and tendinosis of the remainder of the rotator cuff. Tear of the biceps tendon. Reading Location: [facility] CC: Dr. Jimmie Coffman MD ~ Gore Inserter: Signed [facility] Upper Ext Joint Only(Routine )on 02-20-2025 Upper Ext Joint Only(Routine) [facility] [address] [place], [place] [address] Upper Ext Joint Only(Routine) MR#: [id number] Acct: [id number] Name: SATINDER ABBASI Rep #: [id number] : 1955 M 69 From: Kevyn Mccarty DO PCP: Dr. Jimmie Coffman MD Status: REG CLI Study: Upper Ext Joint Only(Routine) Date of Exam: 0 02/20/25 Exam# [id number] Ordering Dr: Jimmie Coffman MD EXAM: Noncontrast left shoulder MRI CLINICAL HISTORY: Left shoulder pain. Injury 1 year COMPARISON: None TECHNIQUE: Multi planar, multi sequence noncontrast MR imaging of the left shoulder is performed. FINDINGS: High-grade full-thickness tear of the supraspinatus the tendon is retracted to the level of the glenoid process. High-grade tears of the infraspinatus and subscapularis. The biceps tendon is not normally located within the bicipital groove very small portion of the tendon is identified in the distal groove. A subacromial/subdeltoi d effusion is present. High-grade tear of the subscapularis tendon. The residual tendon is intermediate signal in its distal aspect and has a wavy appearance. The inferior glenohumeral ligament is intact. The glenoid labrum is intact. MRI/Upper Ext Joint Only(Routine) IMPRESSION: Full thickness complete tear of the supraspinatus tendon which is retracted to the level of the glenoid process. high-grade tears and tendinosis of the remainder of the rotator cuff. Tear of the biceps tendon. Reading Location: [facility] CC: Dr. Jimmie Coffman MD Gore Inserter: Signed Normal [facility] AAA Screeningon 01-08-2025 AAA Screening [facility] [place] [address] AAA Screening 01/08/25 0820 MR#: [id number] Acct: [id number] Name: SATINDER ABBASI Rep #: [id number] : 1955 69 From: Jaron Simon MD Attending Dr: Dr. Jimmie Coffman MD Status: REG Bonnie BETTY Ordering Dr: Jimmie Coffman MD Date: 01/08/25 Location: [facility] Sex: M C Admitted: Reason For Study Reason For Study: Screening Aorta Measurements Aorta Doppler Measurements Proximal aorta measures1.98 x 1.98cm. in cross-sectional Peak systolic flow velocities within the proximal aorta axis. measure 86.8 cm/sec. Proximal aorta measures2.00cm. in longitudinal axis. Peak systolic flow velocities within the mid aorta measure Mid aorta measures1.49 x 1.49cm. in cross-sectional axis. 99.5 cm/sec. Mid aorta measures1.48cm. in longitudinal axis. Peak systolic flow velocities within the distal aorta Distal aorta measures1.38 x 1.41cm. in cross-sectional axis.measure 133.9 cm/sec. Distal aorta measures1.37cm. in longitudinal axis. Left Iliac Artery Left iliac artery measures 0.93 x 0.92 cm. in the cross-sectional axis. Left iliac artery measures 0.92 cm. in the longitudinal axis. Peak systolic velocity in the left iliac artery measures 129.3 cm/sec. Right Iliac Artery Right iliac artery measures 0.93 x 0.94 cm. in the cross-sectional axis. Right iliac artery measures 0.88 cm. in the longitudinal axis. Peak systolic velocity in the right iliac artery measures 131.5 cm/sec. Procedure Aorta IVC Iliac vasculature or bypass grafts [id number]. Exam performed in department. VL/AAA Screening Interpretation Summary The dimensions of the intra-abdominal aorta appear normal, without evidence of aneurysmal dilatation. The iliac arteries also appear normal in caliber bilaterally. The intra-abdominal aorta and iliac arteries appear patent, demonstrating normal, pulsatile arterial flow and normal peak systolic velocities. Ordering Physician: Jimmie Coffman Referring Physician: Jimmie Coffman Performed By: Leti Garzon T 01/08/251710 Date Jaron Simon MD CC: Dr. Jimmie Coffman MD Date Dictated: 01/08/25819 Date Transcribed: 01/08/251710 Gore Inserter: Signed Normal [facility] Shoulder min 2 Viewson 12-14 Shoulder min 2 Views [facility] [address] [place] [id number] Shoulder min 2 Views MR#: [id number] Acct: [id number] Name: SATINDER ABBASI Rep #: [id number] : 1955 M 68 From: Sami Scott MD PCP: Dr. Jimmie Coffman MD Status: REG CLI Study: Shoulder min 2 Views Date of Exam: 12/14/24 Exam# [id number] Ordering Dr: Jimmie Coffman MD [id number] STUDY: X-RAY - LEFT SHOULDER REASON FOR EXAM: Male, 68 years old. Ongoing left shoulder pain. TECHNIQUE: 4 views of the left shoulder. COMPARISON: None. FINDINGS: Normal glenohumeral articulation. There is hypertrophic acromioclavicular arthrosis. Normal acromion. There is enthesopathic subcortical cyst formation of the greater tuberosity of the humeral head. The soft tissue structures are unremarkable. There is no demonstrated fracture. Normal visualized pulmonary apex. RAD/Shoulder min 2 Views IMPRESSION: Hypertrophic acromioclavicular arthrosis. No demonstrated fracture. Electronically Signed: Sami Scott MD at 12:12 EST Reading Location ID and State: [facility] / [place] , Service support , CC: Dr. Jimmie Coffman MD Gore Inserter: Signed Normal [facility] Cardiology Visit Reporton Cardiology Visit Report [facility] [address] [place], [place] [address] OFFICE VISIT Date of Service: 10/17/24 MR#: [id number] Acct: [id number] Name: SATINDER ABBASI Rep #: [id number] : 1955 Provider: PRABHA Trevino Age/Sex: 68/M [place] [facility] Status: Signed HPI HPI History of Present Illness Details: Satinder Abbasi is a 68-year-old gentleman that presents here today for a cardiovascular follow-up. He has a strong family history of heart disease and he has a history of hyperlipidemia, hypertension. He stopped taking crestor, he was concerned about his memory. From a cardiac standpoint, patient is doing well. He does not have any chest discomfort/heaviness/ tightness. His exercise tolerance is stable for his age. He does not have any worsening symptoms of shortness of breath. He denies any PND. He does not have any orthopnea. He does not have any symptoms of congestive heart failure. He does not have any palpitations that he is aware of. He does not have any lightheadedness or dizziness. He does not have any near-syncope or syncope. He does not have any lower extremity edema. He does not have any symptoms of claudication. Intake Vital Signs 08/03/23 08:30 10/17/24 10:25 Height 5 ft 7 in 5 ft 7 in Weight: 165 lb BMI 25.8 BP 137/83 H Blood Pressure Location Lt brachial Position Sitting Respiration 18 Pulse 63 Pulse Source NIBP Intake Visit Reasons: 1 Y FU Primary Care Pediatrician Required: No Accompanied by: Self Is patient in pain?: No Allergies No Known Allergies Allergy (Verified 10/17/24 10:26) Medications ???Medication ???Instructions ???Recorded ???Confirmed ???Type aspirin 81 mg tablet,delayed 81 mg PO DAILY 08/16/18 10/17/24 History release (Adult Aspirin Regimen) multivitamin (Daily Multi-Vitamin 1 tab PO DAILY 08/16/18 10/17/24 History tablet) citalopram 40 mg tablet 40 mg PO DAILY 04/02/23 10/17/24 History lisinopril 10 mg tablet 10 mg PO DAILY #90 TABLETS 05/12/24 10/17/24 Rx atorvastatin 40 mg tablet 40 mg PO QHS #90 tabs 10/17/24 10/17/24 Rx Have you fallen in the past year?: No PFSH Medical History Essential hypertension HLD (hyperlipidemia) Family History Father CAD (coronary artery disease) Mother HLD (hyperlipidemia) Brother Myocardial infarction Brother Myocardial infarction Social History Smoking Status: Former smoker alcohol intake: former year quit: 2019 ROS Const Const: Negative for fatigue, weakness, headache(s), frequent falls, difficulty sleeping or excessive sweating Eyes Eyes: Negative for loss of peripheral vision, transient loss of vision, blurry vision, double vision or tunnel vision ENT ENT: Negative for headache(s), dizziness, Nosebleed/epistaxis or balance problems Cardio Chest Pain: No Palpitations: No Edema: None Muscle aches with walking: None Resp Respiratory: Negative for SOB with activity, SOB at rest, SOB orthopnea SOB lying down, Cough or paroxysmal nocturnal dyspnea GI GI: Negative nausea, vomiting, heartburn or black,tarry stools : Negative for hematuria Musc Musc: Negative for muscle aches/ myalgia, muscle weakness, joint pain or balance problems Skin Skin: Negative non-healing lesions, rash or unusual bruising Neuro Neuro: Negative for dizziness, lightheadedness, near syncope, syncope, frequent falls, headache(s), weakness, blurry vision, double vision or lack of coordination Lee Hematologic/Lymphatic : Negative for easy bleeding or easy bruising Endo Endo: Negative for fatigue, excessive sweating or increased thirst/drinking Psych Psych: Negative for anxiety or depression Allergy Allergy/Immunology: Negative for hives and Negative for rash Cardiology Exam Const Appearance: cooperative, healthy appearing, comfortable, no acute distress and well developed Orientation: alert, awake and oriented x3 Head Head: normal to inspection Ears: hearing grossly normal bilaterally Nose: external nose normal Face and Sinus: face symmetric Mouth: oral mucosae normal, lip normal and moist mucous membranes Eyes General: appearance normal, both eyes and all related structures Eyelids: eyelids normal Conjunctivae: conjunctivae normal Pupils: PERRL EOM: EOM intact bilaterally Neck Neck: normal visual inspection and trachea midline; Negative no JVD Carotids: Negative bruit Chest Chest inspection: normal inspection of the chest Auscultation: Bilateral: Clear to Auscultation Cardio Palpation: normal PMI Rate: regular rate Rhythm: regular rhythm Heart sounds: S1 normal and (more content not included)... Normal [facility] CBC W/Diff, Automatedon 07-23 Absolute Lymph 0.87 X10 3/uL Normal 0.83-4.51 [facility] Comment on above: Order Comment: Order Date: 06/02/24 Order Info: 0184- - CBCD Performed By: #### L 500.4100, L100.0100, L500.4050, L506.1000 #### [facility] [address] [place], [address] Absolute Neut 2.8 X10 3/uL Normal 2.0-7.7 [facility] Comment on above: Order Comment: Order Date: 06/02/24 Order Info: 0184- - CBCD Performed By: #### L 500.4100, L100.0100, L500.4050, L506.1000 #### [facility] [address] [place], [address] Basophils/100 WBC (Bld) 0.9 % Normal 0-1 [facility] Comment on above: Order Comment: Order Date: 06/02/24 Order Info: 0184-1 - CBCD Performed By: #### L 500.4100, L100.0100, L500.4050, L506.1000 #### [facility] [address] [place], [address] Eosinophils/100 WBC (Bld) 5.2 % High 0-5 [facility] Comment on above: Order Comment: Order Date: 06/02/24 Order Info: 0184-1 - CBCD Performed By: #### L 500.4100, L100.0100, L500.4050, L506.1000 #### [facility] [address] [place], [address] Erythrocyte distribution width (RBC) [Ratio] 12.7 % Normal 11.6-14.6 [facility] Comment on above: Order Comment: Order Date: 06/02/24 Order Info: 0184- - CBCD Performed By: #### L 500.4100, L100.0100, L500.4050, L506.1000 #### [facility] [address] [place], [address] Hematocrit (Bld) [Volume fraction] 40.9 % Normal 40-54 [facility] Comment on above: Order Comment: Order Date: 06/02/24 Order Info: 0184-1 - CBCD Performed By: #### L 500.4100, L100.0100, L500.4050, L506.1000 #### [facility] [address] [place], [address] Hemoglobin (Bld) [Mass/Vol] 14.1 g/dL Normal 13.0-16.5 [facility] Comment on above: Order Comment: Order Date: 06/02/24 Order Info: 018-1 - CBCD Performed By: #### L 500.4100, L100.0100, L500.4050, L506.1000 #### [facility] [address] [place], [address] IG% 0.200 Normal 0.0-0.9 [facility] Comment on above: Order Comment: Order Date: 06/02/24 Order Info: 018- - CBCD Result Comment: IG% - Immature Granulocytes (promyelocytes, myelocytes and metamyelocytes) > 1% indicates that a LEFT SHIFT is Present. Performed By: #### L 500.4100, L100.0100, L500.4050, L506.1000 #### [facility] [address] [place], [address] Lymphocytes/100 WBC (Bld) 19.6 % Normal 19-41 [facility] Comment on above: Order Comment: Order Date: 06/02/24 Order Info: [id number] - CBCD Performed By: #### L 500.4100, L100.0100, L500.4050, L506.1000 #### [facility] [address] [place], [address] MCH (RBC) [Entitic mass] 31.5 pg Normal 27.0-32.0 [facility] Comment on above: Order Comment: Order Date: 06/02/24 Order Info: [id number] - CBCD Performed By: #### L 500.4100, L100.0100, L500.4050, L506.1000 #### [facility] [address] [place], [address] MCHC (RBC) [Mass/Vol] 34.5 g/dL Normal 32-36 [facility] Comment on above: Order Comment: Order Date: 06/02/24 Order Info: 018- - CBCD Performed By: #### L 500.4100, L100.0100, L500.4050, L506.1000 #### [facility] [address] [place], [address] MCV (RBC) [Entitic vol] 91.5 fL Normal 80-94 [facility] Comment on above: Order Comment: Order Date: 06/02/24 Order Info: 0184-1 - CBCD Performed By: #### L 500.4100, L100.0100, L500.4050, L506.1000 #### [facility] [address] [place], [address] Monocytes/100 WBC (Bld) 11.9 % High 0-10 [facility] Comment on above: Order Comment: Order Date: 06/02/24 Order Info: 0184-1 - CBCD Performed By: #### L 500.4100, L100.0100, L500.4050, L506.1000 #### [facility] [address] [place], [address] Neutrophils/100 WBC (Bld) 62.2 % Normal 47-70 [facility] Comment on above: Order Comment: Order Date: 06/02/24 Order Info: 0184-1 - CBCD Performed By: #### L 500.4100, L100.0100, L500.4050, L506.1000 #### [facility] [address] [place], [address] Nucleated RBC (Bld) [#/Vol] 0 10*3/uL Normal 0-5 [facility] Comment on above: Order Comment: Order Date: 06/02/24 Order Info: 0184-1 - CBCD Performed By: #### L 500.4100, L100.0100, L500.4050, L506.1000 #### [facility] [address] [place], [address] Platelet mean volume (Bld) [Entitic vol] 9.4 fL Normal 6.2-12.0 [facility] Comment on above: Order Comment: Order Date: 06/02/24 Order Info: 0184-1 - CBCD Performed By: #### L 500.4100, L100.0100, L500.4050, L506.1000 #### [facility] [address] [place], [address] Platelets (Bld) [#/Vol] 221 10*3/uL Normal 150-450 [facility] Comment on above: Order Comment: Order Date: 06/02/24 Order Info: 0184-1 - CBCD Performed By: #### L 500.4100, L100.0100, L500.4050, L506.1000 #### [facility] [address] [place], [address] RBC (Bld) [#/Vol] 4.47 10*6/uL Low 4.6-6.2 [facility] Comment on above: Order Comment: Order Date: 06/02/24 Order Info: 0184-1 - CBCD Performed By: #### L 500.4100, L100.0100, L500.4050, L506.1000 #### [facility] [address] [place], [address] RDW SD 42.7 fl Normal 35.1-43.9 [facility] Comment on above: Order Comment: Order Date: 06/02/24 Order Info: 0184-1 - CBCD Performed By: #### L 500.4100, L100.0100, L500.4050, L506.1000 #### [facility] [address] [place], [address] WBC (Bld) [#/Vol] 4.4 10*3/uL Normal 4.4-11.0 [facility] Comment on above: Order Comment: Order Date: 06/02/24 Order Info: 0184-1 - CBCD Performed By: #### L 500.4100, L100.0100, L500.4050, L506.1000 #### [facility] [address] [place], [address] Comprehensive Metabolic Prof ilon 08-04-2024 Albumin [Mass/Vol] 3.2 g/dL Normal 3.2-5.0 [facility] Comment on above: Order Comment: Order Date: 06/02/24 Order Info: 0786-1 - CMP Order Info: [id number] - LIPID Performed By: #### L 500.4100, L100.0100, L500.4050, L506.1000 #### [facility] [address] [place], [address] Albumin/Globulin [Mass ratio] 0.9 {ratio} Normal 0.9-2.4 [facility] Comment on above: Order Comment: Order Date: 06/02/24 Order Info: 0786-1 - CMP Order Info: [id number] - LIPID Performed By: #### L 500.4100, L100.0100, L500.4050, L506.1000 #### [facility] [address] [place], [address] ALK P 85 U/L Normal 45-117 [facility] Comment on above: Order Comment: Order Date: 06/02/24 Order Info: 0786-1 - CMP Order Info: [id number] - LIPID Performed By: #### L 500.4100, L100.0100, L500.4050, L506.1000 #### [facility] [address] [place], [address] ALT [Catalytic activity/Vol] 32 U/L Normal 16-61 [facility] Comment on above: Order Comment: Order Date: 06/02/24 Order Info: 0786-1 - CMP Order Info: [id number] - LIPID Performed By: #### L 500.4100, L100.0100, L500.4050, L506.1000 #### [facility] [address] [place], [address] AST [Catalytic activity/Vol] 25 U/L Normal 15-37 [facility] Comment on above: Order Comment: Order Date: 06/02/24 Order Info: 0786-1 - CMP Order Info: [id number] - LIPID Performed By: #### L 500.4100, L100.0100, L500.4050, L506.1000 #### [facility] [address] [place], [address] Bilirubin [Mass/Vol] 0.40 mg/dL Normal 0.20-1.00 [facility] Comment on above: Order Comment: Order Date: 06/02/24 Order Info: 07- - CMP Order Info: [id number] - LIPID Result Comment: For patients on eltrombopag therapy, use of Dimension [place] TBIL is not recommended. Performed By: #### L 500.4100, L100.0100, L500.4050, L506.1000 #### [facility] [address] [place], [address] BUN/CRE 13.9 RATIO Normal 10-20 [facility] Comment on above: Order Comment: Order Date: 06/02/24 Order Info: 0786- - CMP Order Info: [id number] - LIPID Performed By: #### L 500.4100, L100.0100, L500.4050, L506.1000 #### [facility] [address] [place], [address] CA,Total 9.2 mg/dL Normal 8.5-10.1 [facility] Comment on above: Order Comment: Order Date: 06/02/24 Order Info: 0786- - CMP Order Info: [id number] - LIPID Performed By: #### L 500.4100, L100.0100, L500.4050, L506.1000 #### [facility] [address] [place], [address] Chloride [Moles/Vol] 108 mmol/L High 98-107 [facility] Comment on above: Order Comment: Order Date: 06/02/24 Order Info: 0786- - CMP Order Info: [id number] - LIPID Performed By: #### L 500.4100, L100.0100, L500.4050, L506.1000 #### [facility] [address] [place], [address] CO2 [Moles/Vol] 28.0 mmol/L Normal 21.0-32.0 [facility] Comment on above: Order Comment: Order Date: 06/02/24 Order Info: 0786- - CMP Order Info: [id number] - LIPID Performed By: #### L 500.4100, L100.0100, L500.4050, L506.1000 #### [facility] [address] [place], [address] Creatinine [Mass/Vol] 0.79 mg/dL Normal 0.70-1.30 [facility] Comment on above: Order Comment: Order Date: 06/02/24 Order Info: 0786 - CMP Order Info: [id number] - LIPID Result Comment: The validity of the calculated GFR GFRAA in patients over 70 years has not been determined. Clinical correlation is essential. Performed By: #### L 500.4100, L100.0100, L500.4050, L506.1000 #### [facility] [address] [place], [address] EST GFR - AA 125 mL/min Normal >60 [facility] Comment on above: Order Comment: Order Date: 06/02/24 Order Info: 0786 - CMP Order Info: [id number] - LIPID Result Comment: Afri can Chinese GFR Calc Performed By: #### L 500.4100, L100.0100, L500.4050, L506.1000 #### [facility] [address] [place], [address] GAP 5 Normal 5-15 [facility] Comment on above: Order Comment: Order Date: 06/02/24 Order Info: 0786- - CMP Order Info: [id number] - LIPID Performed By: #### L 500.4100, L100.0100, L500.4050, L506.1000 #### [facility] [address] [place], [address] GFR/1.73 sq M.predicted among non-blacks MDRD (S/P/Bld) [Vol rate/Area] 103 mL/min/{1.73_m2} Normal >60 [facility] Comment on above: Order Comment: Order Date: 06/02/24 Order Info: 0786-1 - CMP Order Info: [id number] - LIPID Result Comment: Non- GFR Calc Performed By: #### L 500.4100, L100.0100, L500.4050, L506.1000 #### [facility] [address] [place], [address] Globulin (S) [Mass/Vol] 3.4 g/dL Normal 2.2-4.2 [facility] Comment on above: Order Comment: Order Date: 06/02/24 Order Info: 0786- - CMP Order Info: [id number] - LIPID Performed By: #### L 500.4100, L100.0100, L500.4050, L506.1000 #### [facility] [address] [place], [address] Glucose [Mass/Vol] 118 mg/dL High 74-106 [facility] Comment on above: Order Comment: Order Date: 06/02/24 Order Info: 0786-1 - CMP Order Info: [id number] - LIPID Result Comment: Fast ing Glucose result from 100 to 125 mg/dL suggests IMPAIRED HOMEOSTASIS per A.D.A. criteria. Performed By: #### L 500.4100, L100.0100, L500.4050, L506.1000 #### [facility] [address] [place], [address] Potassium [Moles/Vol] 4.1 mmol/L Normal 3.5-5.1 [facility] Comment on above: Order Comment: Order Date: 06/02/24 Order Info: 0786-1 - CMP Order Info: [id number] - LIPID Performed By: #### L 500.4100, L100.0100, L500.4050, L506.1000 #### [facility] [address] [place], [address] Sodium [Moles/Vol] 141 mmol/L Normal 136-145 [facility] Comment on above: Order Comment: Order Date: 06/02/24 Order Info: 0786- - CMP Order Info: [id number] - LIPID Performed By: #### L 500.4100, L100.0100, L500.4050, L506.1000 #### [facility] [address] [place], [address] T PROT 6.6 g/dL Normal 6.4-8.2 [facility] Comment on above: Order Comment: Order Date: 06/02/24 Order Info: 0786 - CMP Order Info: [id number] - LIPID Performed By: #### L 500.4100, L100.0100, L500.4050, L506.1000 #### [facility] [address] [place], [address] Urea nitrogen [Mass/Vol] 11 mg/dL Normal 7-18 [facility] Comment on above: Order Comment: Order Date: 06/02/24 Order Info: 0786- - CMP Order Info: [id number] - LIPID Performed By: #### L 500.4100, L100.0100, L500.4050, L506.1000 #### [facility] [address] [place], [address] Lipid Profileon 08-04-2024 Cholesterol [Mass/Vol] 397 mg/dL High 200 [facility] Comment on above: Order Comment: Order Date: 06/02/24 Order Info: 0786- - CMP Order Info: [id number] - LIPID Result Comment: <200 mg/dL Desirable 200-240 mg/dL Borderline >240 mg/dL High Risk Performed By: #### L 500.4100, L100.0100, L500.4050, L506.1000 #### [facility] [address] [place], [address] Cholesterol in HDL [Mass/Vol] 46 mg/dL Normal [facility] Comment on above: Order Comment: Order Date: 06/02/24 Order Info: 0786-1 - CMP Order Info: [id number] - LIPID Result Comment: The drugs N-Acetylcysteine and Metamizole may falsely depress this assay. Reference Range HDL <40 mg/dL Low HDL Cholesterol HDL >or= 60 mg/dL High HDL Cholesterol Performed By: #### L 500.4100, L100.0100, L500.4050, L506.1000 #### [facility] [address] [place], [address] Cholesterol in LDL [Mass/Vol] 323 mg/dL High 0-130 [facility] Comment on above: Order Comment: Order Date: 06/02/24 Order Info: 0786- - CMP Order Info: [id number] - LIPID Performed By: #### L 500.4100, L100.0100, L500.4050, L506.1000 #### [facility] [address] [place], [address] Cholesterol in VLDL [Mass/Vol] 28 mg/dL Normal 5-40 [facility] Comment on above: Order Comment: Order Date: 06/02/24 Order Info: 0786-1 - CMP Order Info: [id number] - LIPID Performed By: #### L 500.4100, L100.0100, L500.4050, L506.1000 #### [facility] [address] [place], [address] Triglyceride [Mass/Vol] 139 mg/dL Normal [facility] Comment on above: Order Comment: Order Date: 06/02/24 Order Info: 0786-1 - CMP Order Info: [id number] - LIPID Result Comment: The drugs N-Acetylcysteine and Metamizole may falsely depress this assay. Serum Triglycerides Reference Interval Normal <150 mg/dL Borderline high 150 - 199 mg/dL High 200 - 499 mg/dL Very High > or = 500 mg/dL Performed By: #### L 500.4100, L100.0100, L500.4050, L506.1000 #### [facility] [address] [place], [address] Cholesterol [Mass/Vol] 400 mg/dL High 200 [facility] Comment on above: Result Comment: <200 mg/dL Desirable 200-240 mg/dL Borderline >240 mg/dL High Risk Performed By: #### L 500.4100, L500.3400 #### [facility] [address] [place], [address] Cholesterol in HDL [Mass/Vol] 44 mg/dL Normal [facility] Comment on above: Result Comment: The drugs N-Acetylcysteine and Metamizole may falsely depress this assay. Reference Range HDL <40 mg/dL Low HDL Cholesterol HDL >or= 60 mg/dL High HDL Cholesterol Performed By: #### L 500.4100, L500.3400 #### [facility] [address] [place], [address] Cholesterol in LDL [Mass/Vol] 328 mg/dL High 0-130 [facility] Comment on above: Performed By: #### L 500.4100, L500.3400 #### [facility] [address] [place], [address] Cholesterol in VLDL [Mass/Vol] 28 mg/dL Normal 5-40 [facility] Comment on above: Performed By: #### L 500.4100, L500.3400 #### [facility] [address] [place], [address] Triglyceride [Mass/Vol] 141 mg/dL Normal [facility] Comment on above: Result Comment: The drugs N-Acetylcysteine and Metamizole may falsely depress this assay. Serum Triglycerides Reference Interval Normal <150 mg/dL Borderline high 150 - 199 mg/dL High 200 - 499 mg/dL Very High > or = 500 mg/dL Performed By: #### L 500.4100, L500.3400 #### [facility] [address] [place], [address] Liver Profileon 08-04-2024 Albumin [Mass/Vol] 3.1 g/dL Low 3.2-5.0 [facility] Comment on above: Performed By: #### L 500.4100, L500.3400 #### [facility] [address] [place], [address] ALK P 86 U/L Normal 45-117 [facility] Comment on above: Performed By: #### L 500.4100, L500.3400 #### [facility] [address] [place], [address] ALT [Catalytic activity/Vol] 33 U/L Normal 16-61 [facility] Comment on above: Performed By: #### L 500.4100, L500.3400 #### [facility] [address] [place], [address] AST [Catalytic activity/Vol] 26 U/L Normal 15-37 [facility] Comment on above: Performed By: #### L 500.4100, L500.3400 #### [facility] [address] [place], [address] Bilirubin [Mass/Vol] 0.50 mg/dL Normal 0.20-1.00 [facility] Comment on above: Result Comment: For patients on eltrombopag therapy, use of Dimension [place] TBIL is not recommended. Performed By: #### L 500.4100, L500.3400 #### [facility] [address] [place], [address] Bilirubin.direct [Mass/Vol] 0.11 mg/dL Normal 0.00-0.30 [facility] Comment on above: Performed By: #### L 500.4100, L500.3400 #### [facility] [address] [place], [address] Globulin (S) [Mass/Vol] 3.4 g/dL Normal 2.2-4.2 [facility] Comment on above: Performed By: #### L 500.4100, L500.3400 #### [facility] [address] [place], [address] T PROT 6.5 g/dL Normal 6.4-8.2 [facility] Comment on above: Performed By: #### L 500.4100, L500.3400 #### [facility] [address] [place], [address] Vitamin D,25 Hydroxyon 08-04 Vitamin D 25-OH 39.7 ng/mL Normal [facility] Comment on above: Order Comment: Order Date: 06/02/24Order Info: [id number] - [id number] Result Comment: Bessie min D 25(OH) Status Range Deficiency <20 ng/mL (50nmol/L) Insufficiency 20 - 30 ng/mL (50 - 75 nmol/L) Sufficiency 30 - 100 ng/mL (75 - 250 nmol/L) Toxicity >100 ng/mL (>250 nmol/L) Performed By: #### L 500.4100, L100.0100, L500.4050, L506.1000 ####[facility] [address] [place], [address] No Panel InformationOrdered By: Isreal Ascencio on 11-25-2023 Prostate Specific Antigen Screen 1.97 ng/mL 0.00-4.00 [facility] Comment on above: This test was perfor med using the TPSA assay method [facility]. Values obtained with differentassay methods cannot be used interchangably.When changing PSA assays in the course of monitoring apatient, additional sequential testing should be carriedout to confirm baseline values. Basophil percentageOrdered B y: Radha Jane on 08-03-2023 Bilirubin [Mass/Vol] 0.40 mg/dL 0.20-1.00 [facility] Comment on above: For patients on eltr ombopag therapy, use of Dimension [place] TBIL is not recommended. Chloride [Moles/Vol] 110 mmol/L 98-107 [facility] Cholesterol [Mass/Vol] 200 mg/dL <200 [facility] Comment on above: <200 mg/dL Desirable 200-240 mg/dL Borderline >240 mg/dL High Risk Glucose [Mass/Vol] 104 mg/dL 74-106 [facility] Comment on above: Fasting Glucose resu lt from 100 to 125 mg/dL suggests IMPAIRED HOMEOSTASIS per A.D.A. criteria. Potassium [Moles/Vol] 4.0 mmol/L 3.5-5.1 [facility] Protein [Mass/Vol] 6.9 g/dL 6.4-8.2 [facility] Sodium [Moles/Vol] 143 mmol/L 136-145 [facility] Triglyceride [Mass/Vol] 70 mg/dL <199 [facility] Comment on above: The drugs N-Acetylcy steine and Metamizole may falsely depress this assay.Serum Triglycerides Reference Interval Normal <150 mg/dL Borderline high 150 - 199 mg/dL High 200 - 499 mg/dL Very High > or = 500 mg/dL Laboratory - Chemistry and C hemistry - challengeOrdered By: Radha Jane on 08-03-2023 ALP [Catalytic activity/Vol] 38 U/L 45-117 [facility] ALT [Catalytic activity/Vol] 31 U/L 16-61 [facility] CO2 [Moles/Vol] 29.0 mmol/L 21.0-32.0 [facility] Globulin (S) [Mass/Vol] 3.3 g/dL 2.2-4.2 [facility] Urea nitrogen/Creatinine [Mass ratio] 13.0 mg/mg 10-20 [facility] No Panel InformationOrdered By: Radha Jane on 08-03-2023 Estimated GFR (MDRD) Amer 96 mL/min >60 [facility] Comment on above: GFR Calc Estimated GFR (MDRD) Non-Af Amer 80 mL/min >60 [facility] Comment on above: Non- GFR Calc Serum or plasma albumin rebeca urement (mass/volume)Ordered By: Radha Jane on 08-03-2023 Albumin [Mass/Vol] 3.6 g/dL 3.2-5.0 [facility] [facility] Serum or plasma albumin/glob ulin mass ratioOrdered By: Radha Jane on 08-03-2023 Albumin/Globulin [Mass ratio] 1.1 {ratio} 0.9-2.4 [facility] Serum or plasma calcium rebeca urement (mass/volume)Ordered By: Radha Jane on 08-03-2023 Calcium [Mass/Vol] 8.9 mg/dL 8.5-10.1 [facility] Serum or plasma cholesterol in HDL measurement (mass/volume)Ordered By: Radha Jane on 08-03-2023 Cholesterol in HDL [Mass/Vol] 49 mg/dL >40 [facility] Comment on above: The drugs N-Acetylcy steine and Metamizole may falsely depress this assay. Reference Range HDL <40 mg/dL Low HDL Cholesterol HDL >or= 60 mg/dL High HDL Cholesterol Serum or plasma cholesterol in VLDL measurement (mass/volume)Ordered By: Radha Jane on 08-03-2023 Cholesterol in VLDL [Mass/Vol] 14 mg/dL 5-40 [facility] Serum or plasma creatinine m easurement (mass/volume)Ordered By: Radha Jane on 08-03-2023 Creatinine [Mass/Vol] 1.00 mg/dL 0.70-1.30 [facility] Comment on above: The validity of the calculated GFR & GFRAA in patients over 70 years has not been determined. Clinical correlation is essential. Serum or plasma low density lipoprotein (LDL) cholesterol measurement (mass/volume)Ordered By: Radha Jane on 08-03-2023 Cholesterol in LDL [Mass/Vol] 137 mg/dL 0-130 [facility] Serum or plasma urea nitroge n measurement (mass/volume)Ordered By: Radha Jane on 08-03-2023 Urea nitrogen [Mass/Vol] 13 mg/dL 7-18 [facility] Thin prep Papanicolaou smear with manual screeningOrdered By: Radha Jane on 08-03-2023 Thin prep Papanicolaou smear with manual screening 19 U/L 15-37 [facility] Thin prep Papanicolaou smear with manual screening 4 5-15 [facility] Basophil percentageOrdered B y: Radha Jane on 11-30-2022 Bilirubin [Mass/Vol] 0.50 mg/dL 0.20-1.00 [facility] Comment on above: For patients on eltr ombopag therapy, use of Dimension [place] TBIL is not recommended. Chloride [Moles/Vol] 109 mmol/L 98-107 [facility] Cholesterol [Mass/Vol] 210 mg/dL <200 [facility] Comment on above: <200 mg/dL Desirable 200-240 mg/dL Borderline >240 mg/dL High Risk Glucose [Mass/Vol] 96 mg/dL 74-106 [facility] Potassium [Moles/Vol] 4.4 mmol/L 3.5-5.1 [facility] Protein [Mass/Vol] 6.7 g/dL 6.4-8.2 [facility] Sodium [Moles/Vol] 143 mmol/L 136-145 [facility] Triglyceride [Mass/Vol] 72 mg/dL <199 [facility] Comment on above: The drugs N-Acetylcy steine and Metamizole may falsely depress this assay.Serum Triglycerides Reference Interval Normal <150 mg/dL Borderline high 150 - 199 mg/dL High 200 - 499 mg/dL Very High > or = 500 mg/dL Laboratory - Chemistry and C hemistry - challengeOrdered By: Radha Jane on 11-30-2022 ALP [Catalytic activity/Vol] 39 U/L 45-117 [facility] ALT [Catalytic activity/Vol] 29 U/L 16-61 [facility] CO2 [Moles/Vol] 27.0 mmol/L 21.0-32.0 [facility] Globulin (S) [Mass/Vol] 2.8 g/dL 2.2-4.2 [facility] Urea nitrogen/Creatinine [Mass ratio] 15.0 mg/mg 10-20 [facility] No Panel InformationOrdered By: Radha Jane on 11-30-2022 Estimated GFR (MDRD) Amer 96 mL/min >60 [facility] Comment on above: GFR Calc Estimated GFR (MDRD) Non-Af Amer 80 mL/min >60 [facility] Comment on above: Non- GFR Calc Serum or plasma albumin rebeca urement (mass/volume)Ordered By: Radha Jane on 11-30-2022 Albumin [Mass/Vol] 3.9 g/dL 3.2-5.0 [facility] Serum or plasma albumin/glob ulin mass ratioOrdered By: Radha Jane on 11-30-2022 Albumin/Globulin [Mass ratio] 1.4 {ratio} 0.9-2.4 [facility] Serum or plasma calcium rebeca urement (mass/volume)Ordered By: Radha Jane on 11-30-2022 Calcium [Mass/Vol] 9.2 mg/dL 8.5-10.1 [facility] Serum or plasma cholesterol in HDL measurement (mass/volume)Ordered By: Radha Jane on 11-30-2022 Cholesterol in HDL [Mass/Vol] 51 mg/dL >40 [facility] Comment on above: The drugs N-Acetylcy steine and Metamizole may falsely depress this assay. Reference Range HDL <40 mg/dL Low HDL Cholesterol HDL >or= 60 mg/dL High HDL Cholesterol Serum or plasma cholesterol in VLDL measurement (mass/volume)Ordered By: Radha Jane on 11-30-2022 Cholesterol in VLDL [Mass/Vol] 14 mg/dL 5-40 [facility] Serum or plasma creatinine m easurement (mass/volume)Ordered By: Radha Jane on 11-30-2022 Creatinine [Mass/Vol] 1.00 mg/dL 0.70-1.30 [facility] Comment on above: The validity of the calculated GFR & GFRAA in patients over 70 years has not been determined. Clinical correlation is essential. Serum or plasma low density lipoprotein (LDL) cholesterol measurement (mass/volume)Ordered By: Radha Jane on 11-30-2022 Cholesterol in LDL [Mass/Vol] 145 mg/dL 0-130 [facility] Serum or plasma urea nitroge n measurement (mass/volume)Ordered By: Radha Jane on 11-30-2022 Urea nitrogen [Mass/Vol] 15 mg/dL 7-18 [facility] Thin prep Papanicolaou smear with manual screeningOrdered By: Radha Jane on 11-30-2022 Thin prep Papanicolaou smear with manual screening 22 U/L 15-37 [facility] Thin prep Papanicolaou smear with manual screening 7 5-15 [facility] Final Surgical Pathology Rep manisha 01-07-2022 Final Surgical Pathology Report . Pathology Reports Accession: Collected Date/Time: Received Date/Time: Pathologist: [id number] 01/05/2022 10:08 EST 01/06/2022 09:15 EST MD JUANCHO GRIJALVA Final Surgical Pathology Report DIAGNOSIS: COLON, 12CM, BIOPSY - SLIGHTLY POLYPOID FRAGMENTS OF COLONIC MUCOSA WITH MILD NONSPECIFIC FIBROSIS OF LAMINA PROPRIA AND FOCAL REACTIVE HYPERPLASTIC CHANGES. NEGATIVE FOR DYSPLASIA OR NEOPLASIA. COMMENT: [id number] [id number] CLINICAL INFORMATION: Procedure: FLEXIBLE SIGMOIDOSCOPY WITH BIOPSY Preoperative diagnosis: HISTORY OF TUBULOVILLOUS ADENOMA Postoperative diagnosis: SAME SPECIMEN: A BIOPSY POLYP SCAR 12 CM - R/O ADENOMA, HISTORY OF POLYPS GROSS DESCRIPTION: Received in formalin labeled biopsy polyp scar 12 cm and consists of pale-jones fragments of mucosa ranging in size from 0.1 to 0.2 cm. TE-1 Dictated by JUANCHO GRIJALVA MD MICROSCOPIC DESCRIPTION: Slides reviewed. Electronically Signed by Pathology Report verified by [facility] Electronically signed by JUANCHO GRIJALVA MD Sign out Date: 01/07/2022 15:20 Performing Lab: [facility], [address] [place] [address] ([place]) Office Visiton 06-24-2017 Documentation of current medications (procedure) Done Invalid Interpretation Code [facility] Work Phone: [phone] Fall risk assessment No Invalid Interpretation Code [facility] Work Phone: [phone] Clinical Lists Update: [employer] presser 05-31-2017 Albumin mass conc 4.4 g/dL Invalid Interpretation Code [facility] [employer] Work Phone: [phone] Alkaline phosphatase (ALP) 39 U/L Invalid Interpretation Code [facility] Work Phone: [phone] ALP enzyme act/vol (Bld) 39 U/L [facility] Work Phone: [phone] ALT enzyme act/vol 29 U/L Invalid Interpretation Code [facility] [employer] Work Phone: [phone] AST enzyme act/vol 27 U/L Invalid Interpretation Code [facility] Work Phone: [phone] Bilirubin mass conc 0.7 mg/dL Invalid Interpretation Code [facility] Work Phone: [phone] Bilirubin.direct mass conc 0.1 mg/dL Invalid Interpretation Code [facility] Work Phone: [phone] Bilirubin.indirect mass conc 0.6 mg/dL Invalid Interpretation Code [facility] Work Phone: [phone] Cholesterol in HDL mass conc 51 mg/dL Invalid Interpretation Code [facility] Work Phone: [phone] Cholesterol in LDL mass conc 209 mg/dL High [facility] Work Phone: [phone] Cholesterol mass conc 271 mg/dL High [facility] Work Phone: [phone] Lipoprotein.pre-beta mass conc 11 mg/dL Invalid Interpretation Code [facility] Work Phone: [phone] Protein mass conc 6.8 g/dL Invalid Interpretation Code [facility] Work Phone: [phone] Triglyceride mass conc 56 mg/dL Invalid Interpretation Code [facility] Work Phone: [phone] HEPATIC FUNCTION PANELon Alanine aminotransferase (ALT) 29 U/L Normal 10 - 40 [facility] Comment on above: Performed By: #### 2 [id number] ####[facility] [address] [place] [address] Albumin 4.4 g/dL Normal 3.5 - 5.0 [facility] Comment on above: Performed By: #### 2 [id number] ####[facility] [address] [place] [address] ALKALINE PHOS 39 IU/L Normal 32 - 92 [facility] Comment on above: Performed By: #### 2 [id number] ####[facility] [address] [place] [address] Aspartate aminotransferase (AST) 27 U/L Normal 10 - 42 [facility] Comment on above: Performed By: #### 2 [id number] ####[facility] [address] [place] [address] Bilirubin (direct) 0.1 mg/dL Normal 0.0 - 0.2 [facility] Comment on above: Performed By: #### 2 [id number] ####[facility] [address] [place] [address] Bilirubin (direct) 0.6 mg/dL Normal 0.2 - 0.8 [facility] Comment on above: Performed By: #### 2 [id number] ####[facility] [address] [place] [address] Bilirubin (direct) 0.7 mg/dL Normal 0.2 - 1.0 [facility] Comment on above: Performed By: #### 2 [id number] ####[facility] [address] [place] [address] Protein 6.8 g/dL Normal 6.4 - 8.3 [facility] Comment on above: Performed By: #### 2 [id number] ####[facility] [address] [place] [address] LIPID-CHOL TRIG HDLon 2016 Cholesterol 271 mg/dL High 0 - 200 [facility] Comment on above: Performed By: #### 2 [id number] ####[facility] [address] [place] [address] Other Comment: LIPID PANEL Cholesterol to HDL Ratio 530 {ratio} High 0.0 - 5.0 [facility] Comment on above: Performed By: #### 2 [id number] ####[facility] [address] [place] [address] Other Comment: LIPID PANEL EST CHD RISK 1.1 High 0.0 - 1.0 [facility] Comment on above: Result Comment: \BLD o\T. Chol/HDL Ratio\BLDx\ Men Women 1/2 Avg. Risk 3.4 3.3 Avg. Risk 5.0 4.4 2x Avg. Risk 9.6 7.1 3x Avg. Risk 23.4 11.0 The CHD Risk is based on the T. Chol/HDL ratio. Other factors affect CHD Risk such as hypertension, smoking, diabetes, severe obesity, and family history of pre- mature CHD. Performed By: #### 2 [id number] ####[facility] [address] [place] [address] Other Comment: LIPID PANEL HDL Cholesterol 51 mg/dL Normal 30 - 70 [facility] Comment on above: Performed By: #### 2 [id number] ####[facility] [address] [place] [address] Other Comment: LIPID PANEL LDL Cholesterol 209 mg/dL High 0 - 99 [facility] Comment on above: Performed By: #### 2 [id number] ####[facility] [address] [place] [address] Other Comment: LIPID PANEL Triglyceride 56 mg/dL Normal 35 - 160 [facility] Comment on above: Performed By: #### 2 [id number] ####[facility] [address] [place] [address] Other Comment: LIPID PANEL VLDL CALC 11 mg/dl Normal 5 - 40 [facility] Comment on above: Performed By: #### 2 [id number] ####[facility] [address] [place] [address] Other Comment: LIPID PANEL Lab Report: Liver Profileon 05-21-2016 Globulin 3.1 g/dL Invalid Interpretation Code 2.3-3.5 [facility] Work Phone: [phone] Globulin mass conc (S) 3.1 g/dL 2.3-3.5 [facility] Work Phone: [phone] Office Visit: [facility] 05-21-20 16 Dietary management education, guidance, and counseling (procedure) yes Invalid Interpretation Code [facility] Work Phone: [phone] Documentation of current medications (procedure) Done Invalid Interpretation Code [facility] Work Phone: [phone] Protein mass conc Done [facility] Work Phone: [phone] Replaced Document: [facility] CG Observationson 05-21-2016 EKG QRS axis -1 deg [facility] Work Phone: [phone] electrocardiogram interpretation Sinus Rhythm WITHIN NORMAL LIMITS Invalid Interpretation Code [facility] Work Phone: [phone] GE use only - for [employer] import when terms are not otherwise specified 417 ms Invalid Interpretation Code [facility] Work Phone: [phone] Interpretation Sinus Rhythm WITHIN NORMAL LIMITS [facility] Work Phone: [phone] P Rockham 48 deg [facility] Work Phone: [phone] P wave axis, electrocardiogram 48 deg Invalid Interpretation Code [facility] Work Phone: [phone] [place] Interval 158 ms [facility] Work Phone: [phone] [place] interval, electrocardiogram 158 ms Invalid Interpretation Code [facility] Work Phone: [phone] Pulse (Heart Rate) 79 /min Invalid Interpretation Code [facility] Work Phone: [phone] QRS axis, electrocardiogram -1 deg Invalid Interpretation Code [facility] Work Phone: [phone] QRS Duration 94 ms [facility] Work Phone: [phone] QRS duration, electrocardiogram 94 ms Invalid Interpretation Code [facility] Work Phone: [phone] QT Interval new path ms [facility] Work Phone: [phone] QT interval, electrocardiogram new path ms Invalid Interpretation Code [facility] Work Phone: [phone] QTc Lemus 417 ms [facility] Work Phone: [phone] T Rockham -1 deg [facility] Work Phone: [phone] T wave axis, electrocardiogram -1 deg Invalid Interpretation Code [facility] Work Phone: [phone] Office Visiton 05-22-2015 cardiac risk group C Invalid Interpretation Code [facility] Work Phone: [phone] General cardiovascular disease 10Y risk [#] Rice.D'Agostkamilla N/A Invalid Interpretation Code [facility] Work Phone: [phone] Tobacco smoking status NHIS Former smoker [facility] Work Phone: [phone] Tobacco use HS Former smoker Invalid Interpretation Code [facility] Work Phone: [phone] Lab Report: GLUon 09-28-2012 Glucose 97 mg/dL Normal 70-110 [facility] Work Phone: [phone] Glucose mass conc 97 mg/dL Normal 70-110 [facility] Work Phone: [phone] Vital Signs Date Time Vital Sign Value Performing Clinician Faci lity 08-03-2023 08:30-0400 Body height 170.18 cm DO Alondraluz Cohennger Work Phone: [facility] 08-03-2023 08:30-0400 Body mass index (BMI) [Ratio] 24.4 kg/m2 DO Alondra Anuja Work Phone: [facility] 08-03-2023 08:30-0400 Body weight 70.76 kg DO Alondraluz Cohennger Work Phone: [facility] 08-03-2023 08:30-0400 Diastolic blood pressure 75 mm[Hg] DO Alondraluz Cohennger Work Phone: [facility] 08-03-2023 08:30-0400 Heart rate 60 /min DO Alondraluz Cohennger Work Phone: [facility] 08-03-2023 08:30-0400 Respiratory rate 18 /min DO Alondra Cohennger Work Phone: [facility] 08-03-2023 08:30-0400 SaO2% (BldA) [Mass fraction] 100 % DO Alondra Cohennger Work Phone: [facility] 08-03-2023 08:30-0400 Systolic blood pressure 129 mm[Hg] DO Alondra Cohennger Work Phone: [facility] 12-04-2022 10:31-0500 Body height 170.[address] Purnima Macedo Work Phone: [facility] 12-04-2022 10:31-0500 Body mass index (BMI) [Ratio] 26.9 kg/m2 Dr. Purnima Macedo Work Phone: [facility] 12-04-2022 10:31-0500 Body weight 78.[address] Purnima Macedo Work Phone: [facility] 12-04-2022 10:31-0500 Diastolic blood pressure 79 mm[Hg] Dr. Purnima Macedo Work Phone: [facility] 12-04-2022 10:31-0500 Heart rate 61 /min Dr. Purnima Macedo Work Phone: [facility] 12-04-2022 10:31-0500 Respiratory rate 18 /min Dr. Purnima Macedo Work Phone: [facility] 12-04-2022 10:31-0500 SaO2% (BldA) [Mass fraction] 98 % Dr. Purnima Macedo Work Phone: [facility] 12-04-2022 10:31-0500 Systolic blood pressure 161 mm[Hg] Dr. Purnima Macedo Work Phone: [facility] 09-01-2022 09:31-0400 Body mass index (BMI) [Ratio] 26.6 kg/m2 Dr. Purnima Macedo Work Phone: [facility] 09-01-2022 09:31-0400 Body weight 77.[address] Purnima Macedo Work Phone: [facility] 09-01-2022 09:31-0400 Diastolic blood pressure 81 mm[Hg] Dr. Purnima Macedo Work Phone: [facility] 09-01-2022 09:31-0400 Heart rate 65 /min Dr. Purnima Macedo Work Phone: [facility] 09-01-2022 09:31-0400 Respiratory rate 18 /min Dr. Purnima Macedo Work Phone: [facility] 09-01-2022 09:31-0400 SaO2% (BldA) [Mass fraction] 99 % Dr. Purnima aMcedo Work Phone: [facility] 09-01-2022 09:31-0400 Systolic blood pressure 135 mm[Hg] Dr. Purnima Macedo Work Phone: [facility] 01-05-2022 10:21-0500 Diastolic Blood Pressure NBP [address] IZABELA NUÑEZ MD [facility] 01-05-2022 10:21-0500 Heart rate 69 /min DR IZABELA NUÑEZ MD [facility] 01-05-2022 10:21-0500 Respiratory rate 14 /min DR IZABELA NUÑEZ MD [facility] 01-05-2022 10:21-0500 Systolic Blood Pressure NBP [address] IZABELA NUÑEZ MD [facility] 01-05-2022 10:16-0500 Diastolic Blood Pressure NBP [address] IZABELA NUÑEZ MD [facility] 01-05-2022 10:16-0500 Heart rate 71 /min DR IZABELA NUÑEZ MD [facility] 01-05-2022 10:16-0500 Respiratory rate 14 /min DR IZABELA NUÑEZ MD [facility] 01-05-2022 10:16-0500 Systolic Blood Pressure NBP [address] IZABELA NUÑEZ MD [facility] 01-05-2022 10:10-0500 Diastolic Blood Pressure NBP [address] IZABELA NUÑEZ MD [facility] 01-05-2022 10:10-0500 Heart rate 76 /min DR IZABELA NUÑEZ MD [facility] 01-05-2022 10:10-0500 Respiratory rate 22 /min DR IZABELA NUÑEZ MD [facility] 01-05-2022 10:10-0500 Systolic Blood Pressure NBP [address] IZABELA NUÑEZ MD [facility] 01-05-2022 09:21-0500 Body height 170.[address] IZABELA NUÑEZ MD [facility] 01-05-2022 09:21-0500 Body temperature 96.8 [degF] DR IZABELA NUÑEZ MD [facility] 01-05-2022 09:21-0500 Body weight 77.[address] IZABELA NUÑEZ MD [facility] 01-05-2022 09:21-0500 Body weight 26.68 kg/m2 DR IZABELA NUÑEZ MD [facility] 01-05-2022 09:21-0500 diastolic 82 mm[Hg] DR IZABELA NUÑEZ MD [facility] 01-05-2022 09:21-0500 Heart rate 97 /min DR IZABELA NUÑEZ MD [facility] 01-05-2022 09:21-0500 systolic 134 mm[Hg] DR IZABELA NUÑEZ MD [facility] 01-05-2022 09:09-0500 Body height 170.[address] IZABELA NUÑEZ MD [facility] 01-05-2022 09:09-0500 Body temperature 97.7 [degF] DR IZABELA NUÑEZ MD [facility] 01-05-2022 09:09-0500 Body weight 77.[address] IZABELA NUÑEZ MD [facility] 01-05-2022 09:09-0500 diastolic 86 mm[Hg] DR IZABELA NUÑEZ MD [facility] 01-05-2022 09:09-0500 Heart rate 84 /min DR IZABELA NUÑEZ MD [facility] 01-05-2022 09:09-0500 systolic 126 mm[Hg] DR IZABELA NUÑEZ MD [facility] 06-24-2017 11:19-0400 BMI (Body Mass Index) 26.84 kg/m2 MD Deb Juarez [facility] Work Phone: 06-24-2017 11:19-0400 BP Diastolic 60 mm[Hg] MD [facility] Work Phone: 06-24-2017 11:19-0400 BP Systolic 120 mm[Hg] MD [facility] Work Phone: 06-24-2017 11:19-0400 Height 170.18 cm MD [facility] Work Phone: 06-24-2017 11:19-0400 Pulse (Heart Rate) 64 /min MD [facility] Work Phone: 06-24-2017 11:19-0400 Respiratory Rate 20 /min Ketan Gibbons MD [facility] Work Phone: 06-24-2017 11:19-0400 Weight 77.75 kg Ketan Gibbons MD [facility] Work Phone: 05-21-2016 14:50-0400 Heart rate 79 /min Harumi DeFinis [facility] Work Phone: 05-21-2016 14:36-0400 BMI (Body Mass Index) 26.75 kg/m2 [facility] DeFinsharon [facility] Work Phone: 05-21-2016 14:36-0400 BP Diastolic 82 mm[Hg] Harumi DeFinis [facility] Work Phone: 05-21-2016 14:36-0400 BP Systolic 120 mm[Hg] Harumi DeFinis [facility] Work Phone: 05-21-2016 14:36-0400 BSA (Body Surface Area) 1.89 m2 Harumi DeFinis [facility] Work Phone: 05-21-2016 14:36-0400 Pulse (Heart Rate) 79 /min Harumi DeFinis [facility] Work Phone: 05-21-2016 14:36-0400 Respiratory Rate 16 /min Harumi DeFinis [facility] Work Phone: 05-21-2016 14:36-0400 Weight 77.47 kg Harumi DeFinis [facility] Work Phone: 05-02-2014 09:33-0400 Height 170.18 cm Harumi DeFinis [facility] Work Phone: Encounters Encounter Date Encounter Type Care Provider Facility Start: 07-11-2025 End: 07-11-2025 Patient encounter procedure Jeovany Spear [facility] Work Phone: Start: 07-11-2025 End: 07-11-2025 ambulatory Jimmie Coffman MD Work Phone: [facility] Start: 03-01-2025 End: 03-01-2025 ambulatory Chalon Augustus Facility:[facility] Start: 02-20-2025 End: 02-20-2025 ambulatory Jimmie Coffman MD Work Phone: [facility] Work Phone: Start: 02-20-2025 End: 02-20-[address] Jimmie Coffman MD -MRI - [facility] Work Phone: Start: 02-20-2025 End: 02-20-2025 ambulatory Chalon Augustus Facility:[facility] Start: 01-08-2025 End: 01-08-[address] Jimmie Coffman MD -[facility] Work Phone: Start: 01-08-2025 End: 01-08-2025 ambulatory Chalgerson Augustus Facility:[facility] Start: 12-14-2024 End: 12-14-[address] [facility] Start: 12-14-2024 End: 12-14-2024 ambulatory Chalon Augustus Facility:[facility] Start: 10-17-2024 End: 10-17-2024 ambulatory Chalon Augustus [facility] Start: 08-10-2024 ambulatory Radha ARMANDO Facility[place] Start: 08-04-2024 End: 08-04-2024 ambulatory Chalon Augustus Facility:[facility] Start: 07-26-2024 ambulatory Radha ARMANDO Facility:[facility] Start: 11-25-2023 End: 11-25-2023 ambulatory DO Alondra Licea Work Phone: [facility] Work Phone: Start: 11-25-2023 End: 11-25-2023 Patient encounter procedure DO Alondra Licea Work Phone: [facility] [place] Work Phone: Start: 08-03-2023 End: 08-03-2023 ambulatory DO Alondra Licea Work Phone: [facility] Work Phone: Start: 08-03-2023 End: 08-03-2023 Patient encounter procedure Alondra Cohennger Work Phone: [facility] Work Phone: Start: 12-04-2022 End: 12-04-[address] Purnima Macedo Work Phone: [facility] Start: 11-30-2022 End: 11-30-[address] Purnima Macedo Work Phone: [facility] Work Phone: Start: 11-30-2022 End: 11-30-[address] Purnima Macedo Work Phone: [facility] Start: 09-01-2022 End: 09-01-[address] Purnima Macedo Work Phone: [facility] Start: 01-05-2022 End: 01-05-[address] IZABELA NUÑEZ MD [facility] Start: 08-09-2017 End: 08-09-2017 Ambulatory PHYSICAL EMPLOYMENT [facility] Start: 05-31-2017 End: 05-31-2017 Ambulatory KETAN GIBBONS [facility] Procedures Date Procedure Procedure Detail Performing Clinician Start: 02-20-2025 MRI of joint of lowe r extremity Jimmie Coffman MD Work Phone: Start: 12-14-2024 Plain X-ray of shoulder Jimmie Coffman MD Work Phone: Start: 11-20-2016 End: 06-04-2017 *Hepatic Function Panel Ninoska Apodaca Start: 11-20-2016 End: 06-04-2017 Lipid panel [AGGREGATE] Ninoska Apodaca Start: 05-21-2016 End: 05-21-2016 Dietary management education, guidance, and counseling Adithya Kam Start: 05-21-2016 End: 05-21-2016 PLANIMETER OPERATOR Radha Jane PA-C Work Phone: Start: 05-21-2016 End: 05-21-2016 Follow Up Appt 1 year Radha morrison PA-C Work Phone: Start: 11-19-2015 End: 05-21-2016 *Hepatic Function Panel Ninoska Apodaca Start: 11-19-2015 End: 05-21-2016 Lipid panel [AGGREGATE] Ninoska Apodaca Start: 05-22-2015 End: 05-23-2015 Documentation of current medications Ketan Gibbons MD Start: 05-22-2015 End: 05-22-2015 Follow Up Appt 1 year Ketan Gibbons MD Start: 05-22-2015 End: 05-22-2015 MMM Ketan Gibbons MD Start: 01-20-2015 End: 05-17-2015 *Hepatic Function Panel Ninoska Apodaca Start: 01-20-2015 End: 05-17-2015 Lipid panel [AGGREGATE] Ninoska Apodaca Start: 09-22-2014 End: 10-10-2014 *Hepatic Function Panel Ninoska Apodaca Start: 09-22-2014 End: 10-10-2014 Lipid panel [AGGREGATE] Ninoska Apodaca Start: 05-02-2014 End: 10-10-2014 *Hepatic Function Panel Ninoska Apodaca Start: 05-02-2014 End: 05-08-2016 Cardiovascular stress test using treadmill Ketan S Edwige, MD Start: 05-02-2014 End: 05-02-2014 PLANIMETER OPERATOR Ketan Gibbons MD Start: 05-02-2014 End: 05-02-2014 Follow Up Appt 1 year Ketan Gibbons MD Start: 05-02-2014 End: 10-10-2014 Lipid panel [AGGREGATE] Ninoska Apodaca Start: 04-04-2014 End: 04-11-2014 *Hepatic Function Panel Ninoska Apodaca Start: 04-04-2014 End: 04-11-2014 Lipid panel [AGGREGATE] Ninoska Apodaca Start: 06-12-2013 End: 06-23-2013 Lipid panel [AGGREGATE] Ninoska Apodaca Start: 05-02-2013 End: 05-02-2013 NAJMA Gibbons MD Start: 05-02-2013 End: 05-02-2013 Follow Up Appt 1 year Ketan Gibbons MD Start: 12-23-2012 End: 05-02-2013 *Hepatic Function Panel Ninoska Apodaca Start: 12-23-2012 End: 05-02-2013 Lipid panel [AGGREGATE] Ninoska Apodaca Start: 04-29-2012 End: 09-28-2012 *Hepatic Function Panel Ninoska Apodaca Start: 04-29-2012 End: 04-29-2012 Follow Up Appt 1 year Ketan Gibbons MD Start: 04-29-2012 End: 09-28-2012 Lipid panel [AGGREGATE] Ninoska Apodaca Colonoscopy DR IZABELA GUERRERO MD Colonoscopy DR IZABELA GUERRERO MD History of hernia repair DR IZABELA NUÑEZ MD Plan of Treatment Date Care Activity Detail Author Start: 12-22-2017 End: 06-22-2017 *Hepatic Function Panel *Hepatic Function Panel [facility] Work Phone: Start: 12-22-2017 End: 06-22-2017 Lipid panel [AGGREGATE] *Lipid Profile CC PCP [facility] Work Phone: Start: 06-24-2017 End: 06-24-2017 Appointment Appointment [facility] Work Phone: Start: 06-24-2017 End: 06-24-2017 *Hepatic Function Panel *Hepatic Function Panel [facility] Work Phone: Start: 06-24-2017 End: 06-24-2017 Follow Up Appt 6 months Follow Up Appt 6 months [facility] Work Phone: Start: 06-24-2017 End: 06-24-2017 Follow Up Appt Other Follow Up Appt Other [facility] Work Phone: Start: 06-24-2017 End: 06-24-2017 Lipid panel [AGGREGATE] *Lipid Profile CC PCP [facility] Work Phone: Start: 11-20-2016 End: 06-04-2017 *Hepatic Function Panel *Hepatic Function Panel [facility] Work Phone: Start: 11-20-2016 End: 06-04-2017 Lipid panel [AGGREGATE] *Lipid Profile CC PCP [facility] Work Phone: Start: 05-21-2016 End: 05-21-2016 PLANIMETER OPERATOR PLANIMETER OPERATOR [facility] Work Phone: Start: 05-21-2016 End: 05-21-2016 Follow Up Appt 1 year Follow Up Appt 1 year [facility] Work Phone: Start: 11-19-2015 End: 05-21-2016 *Hepatic Function Panel *Hepatic Function Panel [facility] Work Phone: Start: 11-19-2015 End: 05-21-2016 Lipid panel [AGGREGATE] *Lipid Profile CC PCP [facility] Work Phone: Start: 05-22-2015 End: 05-22-2015 Follow Up Appt 1 year Follow Up Appt 1 year [facility] Work Phone: Start: 05-22-2015 End: 05-22-2015 MMM MMM [facility] Work Phone: Start: 01-20-2015 End: 10-11-2014 *Hepatic Function Panel *Hepatic Function Panel [facility] Work Phone: Start: 01-20-2015 End: 10-11-2014 Lipid panel [AGGREGATE] *Lipid Profile CC PCP [facility] Work Phone: Start: 09-22-2014 End: 10-10-2014 *Hepatic Function Panel *Hepatic Function Panel [facility] Work Phone: Start: 09-22-2014 End: 10-10-2014 Lipid panel [AGGREGATE] *Lipid Profile CC PCP [facility] Work Phone: Start: 05-02-2014 End: 10-10-2014 *Hepatic Function Panel *Hepatic Function Panel [facility] Work Phone: Start: 05-02-2014 End: 05-02-2014 Cardiovascular stress test using treadmill Treadmill stress test (no imaging) [facility] Work Phone: Start: 05-02-2014 End: 05-02-2014 PLANIMETER OPERATOR PLANIMETER OPERATOR [facility] Work Phone: Start: 05-02-2014 End: 05-02-2014 Follow Up Appt 1 year Follow Up Appt 1 year [facility] Work Phone: Start: 05-02-2014 End: 10-10-2014 Lipid panel [AGGREGATE] *Lipid Profile CC PCP [facility] Work Phone: Start: 04-04-2014 End: 04-03-2014 *Hepatic Function Panel *Hepatic Function Panel [facility] Work Phone: Start: 04-04-2014 End: 04-03-2014 Lipid panel [AGGREGATE] *Lipid Profile CC PCP [facility] Work Phone: Start: 06-12-2013 End: 06-23-2013 Lipid panel [AGGREGATE] *Lipid Profile CC PCP [facility] Work Phone: Start: 05-02-2013 End: 05-02-2013 PLANIMETER OPERATOR PLANIMETER OPERATOR [facility] Work Phone: Start: 05-02-2013 End: 05-02-2013 Follow Up Appt 1 year Follow Up Appt 1 year [facility] Work Phone: Start: 12-23-2012 End: 05-02-2013 *Hepatic Function Panel *Hepatic Function Panel [facility] Work Phone: Start: 12-23-2012 End: 05-02-2013 Lipid panel [AGGREGATE] *Lipid Profile [facility] Work Phone: Start: 04-29-2012 End: 09-28-2012 *Hepatic Function Panel *Hepatic Function Panel [facility] Work Phone: Start: 04-29-2012 End: 04-29-2012 Follow Up Appt 1 year Follow Up Appt 1 year [facility] Work Phone: Start: 04-29-2012 End: 09-28-2012 Lipid panel [AGGREGATE] *Lipid Profile [facility] Work Phone: Blood chemistry [facility] Patient Education [facility] Work Phone: Payers Date Payer Category Payer Self-pay [id number] 2023 Unknown [id number] [facility] [id number] Medicare [id number] Unknown [id number] Unknown [id number] 2.16.8 [id number] Unknown [id number] 2.16.8 [id number] Unknown [id number] 2.16.8 [id number] Unknown [id number] 2.16.8 [id number] Unknown [id number] 2.16.8 [id number] Unknown [id number] 2.16.8 [id number] Unknown [id number] 2.16.8 [id number] Unknown [id number] 2.16.8 [id number] Unknown [id number] 2.16.8 [id number] Social History Date Type Detail Facility Start: 10-07-2020 Never smoked t obacco (finding) [facility] Start: 1955 Sex Assigned At Male [facility] Start: 12-04-2022 End: 08-03-2023 Tobacco smoking status VTIS Unknown if ever smoked [facility] Start: 08-03-2023 End: 03-01-2025 Tobacco smoking status NHIS Ex-smoker (finding) [facility] Start: 02-26-2025 Sex Male (finding) [facility] Evaluation + Plan note 01-05-2022 Note Date & Type Note Facility 01-05-2022 Evaluation + Plan note Extrac nohemi from: Title:Clinical Document Author:IZABELA NUÑEZ Date:01/05/22 [facility] ADMISSION HISTORY AN D PHYSICIAL CHIEF COMPLAINT: HISTORY OF PRESENT ILLNESS: REVIEW OF SYSTEMS: ACTIVE PROBLEMS: (3) GERD (gastroesophageal reflux disease) (789983961) Hypercholesterolemia (76237950) Tubulovillous adenoma of colon (5710220157) MEDICATIONS: Active Inpt Meds: None Active PRN Meds: None One Time Meds: None Active IV Meds: Lactated Ringers Infusion 1,000 mL (LR 1,000 mL) Start: 01/05/22 9:03:00 EST, Rate: 50 mL/hr ALLERGIES: (1) Lipitor FAMILY HISTORY: SOCIAL HISTORY: PHYSICAL EXAM: VITALS: [id number](kg) 01/05 09:2136.0134/[id number]--77/14 77.3 01/05 09:0936.5126/[id number]/14 77.3 24 Hr Tmax: 36.5 at 01/05 09:09 36 Hr Tmax: 36.5 at 01/05 09:09 Vital Signs are the last 5 in the past 48 hours. Weights display the last 5 within 7 days. Initial Wt: 01/05 77.3 kg 170 lb Current Wt: 01/05 77.3 kg 170 lb GENERAL: HEENT: CARDIOVASCULAR: RESPIRATORY: ABDOMEN: EXREMETIES: NEUROLOGICAL: PSYCHIATRIC: LABS: No 36hr Lab Data DIAGNOSTICS: IMPRESSION: PLAN: History and Physical Update I have examined the patient; reviewed the H&P and there are no changes to the H&P unless noted below. [facility] Hospital Discharge instructions 01-05-2022 Note Date & Type Note Facility 01-05-2022 Hospital Discharg e instructions Patient Education 01/05/2022 10:30:10 Moderate Conscious Sedation, Adult, Care After Moderate Conscious Sedation, Adult, Care After These instructions provide you with information about caring for yourself after your procedure. Your health care provider may also give you more specific instructions. Your treatment has been planned according to current medical practices, but problems sometimes occur. Call your health care provider if you have any problems or questions after your procedure. What can I expect after the procedure? After your procedure, it is common: To feel sleepy for several hours. To feel clumsy and have poor balance for several hours. To have poor judgment for several hours. To vomit if you eat too soon. Follow these instructions at home: For at least 24 hours after the procedure: Do not: ?Participate in activities where you could fall or become injured. ?Drive. ?Use heavy machinery. ?Drink alcohol. ?Take sleeping pills or medicines that cause drowsiness. ?Make important decisions or sign legal documents. ?Take care of children on your own. Rest. Eating and drinking Follow the diet recommended by your health care provider. If you vomit: ?Drink water, juice, or soup when you can drink without vomiting. ?Make sure you have little or no nausea before eating solid foods. General instructions Have a responsible adult stay with you until you are awake and alert. Take cgml-rcd-fqafqvs and prescription medicines only as told by your health care provider. If you smoke, do not smoke without supervision. Keep all follow-up visits as told by your health care provider. This is important. Contact a health care provider if: You keep feeling nauseous or you keep vomiting. You feel light-headed. You develop a rash. You have a fever. Get help right away if: You have trouble breathing. This information is not intended to replace advice given to you by your health care provider. Make sure you discuss any questions you have with your health care provider. Document Released: 08/29/2014 Document Revised: 10/21/2018 Document Reviewed: 02/27/2017 [employer] Patient Education 2020 [employer]. 01/05/2022 10:30:06 Colon Biopsy, Care After Colon Biopsy, Care After This sheet gives you information about how to care for yourself after your procedure. Your health care provider may also give you more specific instructions. If you have problems or questions, contact your health care provider. What can I expect after the procedure? After the procedure, it is common to have: A small amount of blood in your stool for 24 hours after the procedure. Some gas. Mild cramping or bloating in your abdomen. Follow these instructions at home: General instructions For the first 24 hours after the procedure: ?Do not drive or use machinery. ?Do not sign important documents. ?Do not drink alcohol. ?Do your regular daily activities at a slower pace than normal. ?Eat soft, ohjv-uc-dcucdv foods. ?Rest often. Take ufzg-qkp-flgngqw or prescription medicines only as told by your health care provider. Keep all follow-up visits as told by your health care provider. This is important. Relieving cramping and bloating Try walking around when you have cramps or feel bloated. Put heat on your abdomen as told by your health care provider. Use a heat source that your health care provider recommends, such as a moist heat pack or a heating pad. ?Place a towel between your skin and the heat source. ?Leave the heat on for 20 30 minutes. ?Remove the heat if your skin turns bright red. This is especially important if you are unable to feel pain, heat, or cold. You may have a greater risk of getting burned. Eating and drinking Drink enough fluid to keep your urine pale yellow. Return to your normal diet as instructed by your health care provider. Avoid heavy or fried foods that are hard to digest. Avoid drinking alcohol for as long as told by your health care provider. Contact a health care provider if: You have blood in your stool 2 3 days after the procedure. Get help right away if: You have more than a small spotting of blood in your stool. You pass large blood clots in your stool. Your abdomen is swollen. You have nausea or vomiting. You have a fever. You have increasing abdominal pain that is not relieved with medicine. Summary After the procedure, it is common to have mild cramping and bloating in the abdomen. Do not drive for 24 hours after the procedure. Try walking around when you have cramps or feel bloated. This information is not intended to replace advice given to you by your health care provider. Make sure you discuss any questions you have with your health care provider. Document Released: 04/19/2018 Document Revised: 10/21/2018 Document Reviewed: 04/19/2018 [employer] Patient Education 2020 [employer] Follow Up Care 12/25/2021 07:51:34 With:IZABELA NUÑEZ MD Address: [phone] When: Unknown Comments:REPEAT COLONOSCOPY IN 3 YEARS [facility] Evaluation note Note Date & Type Note Facility Evaluation note Diagnosis Onset Date Elevated blood-pressure read ing without diagnosis of hypertension acute HLD (hyperlipidemia) chronic Essential hypertension acute HLD (hyperlipidemia) [facility] Work Phone: Evaluation note Note Date & Type Note Facility Evaluation note Diagnosis Onset Date Essential hypertension acute HLD (hyperlipidemia) chronic [facility] Work Phone: Evaluation note Note Date & Type Note Facility Evaluation note No assessment information availa ble [facility] Work Phone: Hospital course Narrative Note Date & Type Note Facility Hospital course Narrative No data available for this section [facility] Reason for referral (narrative) Note Date & Type Note Facility Reason for referral (narrative) No reason for referral information available [facility] Work Phone: Summary Purpose Family History No Family History Records Found Relationship Condition Age at Onset Recorded Date/T anam father Coronary artery disease Unknown mother Hyperlipidemia Unknown brother Myocardial infarction Unknown Advance Directives No Advanced Directives Records FoundNo Advanced Directives Records FoundNo Advanced Directives Records Found Chief Complaint and Reason for Visit Chief Complaint 1 Y FU EORDER 3 M FU Reason for Visit Elevated blood-press ure reading without diagnosis of hypertension HLD (hyperlipidemia) Essential hypertension HLD (hyperlipidemia) Chief Complaint 4 M FU EORDERS Reason for Visit Essential hypertensi on HLD (hyperlipidemia) Chief Complaint 4 M FU EORDERS EORDER Reason for Visit Essential hypertensi on HLD (hyperlipidemia) Chief Complaint Admit Date E-ORDER December 14, 2024 1 0:09am AAA January 08, 2025 7:47am SCREENING January 08, 2025 8:20am L/SHOULDER INJURY February 20, 2025 3:46 pm Chief Complaint Admit Date DOT PHYSICAL/ self pay July 11, 2025 2:15pm Additional Source Comments (unrecognized sect ion and content) No Status Records FoundNo Status Records FoundNo Status Records Found INFORMATION SOURCE (unrecogn ized section and content) DATE CREATED AUTHOR 05/18/2018 [facility] DATE CREATED AUTHOR AUTHOR'S ORGANIZ ATION 02/26/2022 [facility] ([place]) DATE CREATED AUTHOR AUTHOR'S ORGANIZ ATION 07/13/2025 [facility] Care Teams (unrecognized sec tion and content) Team Status: Active Member Role Status Dates Dr. Purnima Scott MD Family Provider Active Alondra Licea DO Primary Care Provider Active Team Status: Inactive Member Role Status Dates Dr. Purnima Macedo MD Primary Care Provider, Referring Provider Active Radha Jane PA, PA Attending Provider Active Team Status: Inactive Member Role Status Dates Alondra Licea DO Primary Care Provider, Referring Provider Active Radha ARMANDO, PA Attending Provider Active Team Status: Inactive Member Role Status Dates Alondra Licea DO Primary Care Provider Active Radha Jane PA, PA Attending Provider, Referr ing Provider Active Team Status: Inactive Member Role Status Dates Alondra Licea DO Primary Care Provider Active Dr. Isreal Ascencio MD Attending Provider, Referring Prov ider Active Team Status: Active Member Role Status Dates Jimmie Coffman MD Primary Care Provider Active Team Status: Inactive Member Role Status Dates Jimmie Coffman MD Primary Care Provider Active St art: December 14, 2024 End: December 14, 2024 Jimmie Coffman MD Attending Provider Active Start : December 14, 2024 End: December 14, 2024 Jimmie Coffman MD Referring Provider Active Start : December 14, 2024 End: December 14, 2024 Team Status: Inactive Member Role Status Dates Jimmie Coffman MD Primary Care Provider Active St art: January 08, 2025 End: January 08, 2025 Jimmie Coffman MD Attending Provider Active Start : January 08, 2025 End: January 08, 2025 Jimmie Coffman MD Referring Provider Active Start : January 08, 2025 End: January 08, 2025 Team Status: Active Member Role Status Dates Dr. Jaron Simon MD Attending Provider Active Start: January 08, 2025 Jimmie Coffman MD Referring Provider Active Start : January 08, 2025 Team Status: Inactive Member Role Status Ramya Coffman MD Primary Care Provider Active St art: February 20, 2025 End: February 20, 2025 Jimmie Coffman MD Attending Provider Active Start : February 20, 2025 End: February 20, 2025 Jimmie Coffman MD Referring Provider Active Start : February 20, 2025 End: February 20, 2025 Team Status: Active Member Role/Relationship Status Ramya Coffman MD Primary Care Provider Active Team Status: Inactive Member Role/Relationship Status Dates Jimmie Coffman MD Primary Care Provider Active St art: July 11, 2025 End: July 11, 2025 Jimmie Coffman MD Referring Provider Active Start : July 11, 2025 End: July 11, 2025 Jeovany ARMANDO, PA Attending Provider Active Start: July 11, 2025 End: July 11, 2025 Goals (unrecognized section and content) Goals may be documented in a n alternate section FOR RECORDS PERTAINING TO PATIENTS WHO ARE OR HAVE BEEN ENROLLED IN A CHEMICAL DEPENDENCY/SUBSTANCEABUSE PROGRAM, SOME INFORMATION MAY BE OMITTED. This clinical summary was aggregated from multiple sources. Caution should be exercised in using it in the provision of clinical care. This summary normalizes information from multiple sources, and as a consequence, information in this document may materially change the coding, format and clinical context of patient data. In addition, data may be omitted in some cases. CLINICAL DECISIONS SHOULD BE BASED ON THE PRIMARY CLINICAL RECORDS. [facility] [employer] provides no warranty or guarantee of the accuracy or completeness of information in this document.
[2025-11-18 18:51] LABS: Partial Thromboplast Time 28.5 Seconds (24.1-36.2); Prothrombin Time (Protime)PT. 12.9 SECONDS (11.7-14.9)
[2025-11-18 19:10] VITALS: BP 158/85; PULSE 62; RESP 18; O2SAT 98
[2025-11-18 19:10] LABS: Mucous, Urine 0 SEEN /hpf (<or=2+); Red Blood Cells-Urine 0 SEEN /hpf (0-5); Squamous Epithelial Cells - UA 0 SEEN /hpf (0-5)
[2025-11-18 19:16] LABS: Color, Urine Straw (Yellow); Glucose, Dipstick Normal (Normal); Ketone-Dipstick Negative (Negative); Leukocyte Esterase-Dipstick Negative /ul (Negative); Nitrite-Dipstick Negative (Negative); Occult Blood-Urine Negative /ul (Negative); Protein-Dipstick 15 mg/dl (Negative); Specific Gravity, Urine 1.010 (1.002-1.030); Urine Bilirubin Dipstick Negative (Negative)
[2025-11-18 19:18] LABS: AST(SGOT) 39 U/L (<=37); Alanine Aminotransfer ALT/SGPT 45 U/L (<=46); Albumin, Serum 4.2 g/dL (3.4-4.8); Alkaline Phosphatase 78 U/L (40-129); Anion Gap 11 (7-18); BUN 14 mg/dL (4-19); BUN/Creat Ratio 15.2 RATIO (10-20); Calcium,Total 9.5 mg/dL (7.6-11.0); Carbon Dioxide 25.5 mmol/L (20.0-29.0); Chloride 104 mmol/L (96-106); Estimated Creatinine Clearance 74.27 ml/min (50-250); Globulin 2.5 g/dL (2.2-4.2); Glucose 84 mg/dL (70-99); Potassium 4.0 mmol/L (3.5-5.1)
[2025-11-18 19:28] LABS: Barbiturate Urine NEGATIVE (< 200 ng/mL); Benzodiazepine Urine NEGATIVE (< 200 ng/mL); PCP Urine NEGATIVE (< 25 ng/mL); THC Urine NEGATIVE (< 50 ng/mL)
[2025-11-18 19:34] LABS: Alcohol, Blood (Medical)-Serum < 10.1 mg/dL (<=10.0)
[2025-11-18 19:40] LABS: Ammonia 28.4 umol/L (16-60)
[2025-11-18 19:47] LABS: Free T3 2.9 pg/mL (2.18-3.98)
[2025-11-18 20:17] VITALS: BP 161/88; PULSE 57; RESP 11; O2SAT 98
[2025-11-18 20:44] VITALS: BP 161/88; PULSE 57; RESP 11; TEMP 36.8; O2SAT 98
--- NOTE | 2025-11-18 20:52 | HP.PCM.HOS_ITS ---
HPI - General General Date of Admission: 11/18/25 HPI Narrative FELISA ABBASI, is a 69 M who presents new onset forgetfulness and confusion. Patient has a medical history of hypertension and hypercholesterolemia. No history of dementia. Patient after 5 PM he woke up and was okay according to his who left the house then his son called him and realized that the patient was repeating himself and asking the same question and was unaware of the surroundings. Patient basically had no memory of any new event after 5 PM today. There was no loss of consciousness, headaches, blurred vision, focal motor or sensory deficits, changes in speech or gait. No current or recent emotional or physical stress except for his brother who had an ongoing issues and life stressors but nothing new or changed. In the recent cardiology visit, it says patient stopped taking his Crestor because of concerns of dementia or memory problems. When asked the , she said he never had any memory problems but he is always concerned about developing dementia but never had symptoms of it. In the ED initial workup including CT head, CTA head and neck and basic chemistries and toxicology screens all came back negative. No hypoglycemia. Patient will be placed under observation for a transient global amnesia, if persist will require MRI [facility] Medical History (Updated 11/18/25 @ 21:[address] Milagros García MD) Encounter for examination required by Department of Transportation (DOT) Left rotator cuff tear Essential hypertension (~10/17/25) HLD (hyperlipidemia) Home Medications ?Medication ?Instructions ?Recorded ?Last Taken ?Type citalopram 40 mg tablet 40 mg PO DAILY 04/02/23 Unkn own History lisinopril 30 mg tablet 30 mg PO QDAY PRN htn Unknown History rosuvastatin 40 mg tablet 40 mg PO DAILY #90 tabs 04/15 Unknown Rx Allergy/AdvReac Type Severity Reaction Status Date / Time No Known Allergies Allergy Verified 11/18/25 18:11 Family History Father CAD (coronary artery disease) Mother HLD (hyperlipidemia) Brother Myocardial infarction Brother Myocardial infarction Surgical History History of hernia surgery Social History Smoking Status: Never smoker alcohol intake: former year quit: 2019 ROS Review of Systems ROS Unobtainable: due to encephalopathy and due to mental status ENT HEENT: Reports none Cardiovascular Cardiovascular: Denies chest pain or dyspnea Respiratory/Chest Respiratory/Chest: Denies cough or wheezing Gastrointestinal Gastrointestinal: Denies abdominal pain or change in bowel habits Genitourinary Genitourinary: Denies change in urinary stream or dysuria Musculoskeletal Musculoskeletal: Denies arthralgias or myalgias Integumentary Integumentary: Reports none Neurologic Neurologic: Denies abnormal speech, dizziness, focal weakness, loss of vision or numbness Hematologic/Lymphatic Hematologic/Lymphatic: Reports none Patient's Goals Of Care . What would you like to achieve or improve as a result of your hospital stay?: G et better Vital Signs Vital Signs Vital Signs: 11/18/25 18:10 11/18/25 19:10 11/18/25 20:17 Temperature 98.2 F Temperature Source Oral Pulse Rate 72 62 57 L Respiratory Rate 16 18 11 L Blood Pressure 171/85 H 158/85 H 161/88 H Blood Pressure Mean 113 109 112 Pulse Ox 100 98 98 Oxygen Delivery Method Room Air Room Air 11/18/25 20:44 Temperature 98.2 F Temperature Source Pulse Rate 57 L Respiratory Rate 11 L Blood Pressure 161/88 H Blood Pressure Mean 112 Pulse Ox 98 Oxygen Delivery Method Weight Weight: 75.251 kg Body Mass Index (BMI) 25.9 Physical Exam Const alert Constitutional Narrative: Oriented x 3 with prompting HEENT normocephalic and head/scalp atraumatic Eyes EOMs intact bilaterally; Negative for no scleral icterus Neck supple Resp normal respiratory effort and clear to auscultation bilaterally Cardio regular rate and regular rhythm; Negative for no murmurs GI normal to inspection, nondistended, normoactive bowel sounds; Negative for non- tender no CVA tenderness Extremity no joint enlargement and no pedal edema Skin no rashes or lesions noted Neuro oriented x3 and moves all extremities Neuro Narrative: Patient repeat the same question over and over (antegrade amnesia) Results Lab / Micro Data 11/18/25 18:32 11/18/25 18:32 Labs: Laboratory Results - last 24 hr 11/18/25 18:32: WBC 5.7, RBC 4.75, Hgb 14.5, Hct 40.7, MCV 85.7, MCH 30.5, MCHC 35.6, RDW Std Deviation 39.4, RDW Coeff of [place] 12.7, Plt Count 249, MPV 9.0, Immature Gran % (Auto) 0.200, Neut % (Auto) 62.6, Lymph % (Auto) 21.9, [place] % (Auto) 11.7 H, Eos % (Auto) 2.6, Baso % (Auto) 1.0, Absolute Neuts (auto) 3.6, Absolute Lymphs (auto) 1.25, Nucleated RBC % 0, PT 12.9, INR 1.0, APTT 28.5, Sodium 140, Potassium 4.0, Chloride 104, Carbon Dioxide 25.5, Anion Gap 11, BUN 14, Creatinine 0.89, Estim Creat Clear Calc 74.27, Est GFR (MDRD) Non-Af 93, BUN/Creatinine Ratio 15.2, Glucose 84, Calcium 9.5, Total Bilirubin 0.39, AST 39 H, ALT 45, Alkaline Phosphatase 78, Total Protein 6.7, Albumin 4.2, Globulin 2.5, Albumin/Globulin Ratio 1.6, Ethyl Alcohol < 10.1 11/18/25 19:05: Urine Color Straw, Urine Clarity Clear, Urine pH 7.0, Ur Specific [place] 1.010, Urine Protein 15 H, Urine Glucose (UA) Normal, Urine Ketones Negative, Urine Occult Blood Negative, Urine Nitrite Negative, Urine Bilirubin Negative, Urine Urobilinogen Normal, Ur Leukocyte Esterase Negative, Urine RBC 0 SEEN, Urine WBC 0 SEEN, Ur Squamous Epith Cells 0 SEEN, Urine Bacteria 1+, Urine Mucus 0 SEEN, Urine Opiates Screen NEGATIVE, U Buprenorphine Qual NEGATIVE, Ur Oxycodone Screen NEGATIVE, Urine Methadone Screen NEGATIVE, Urine Fentanyl Screen NEGATIVE, Ur Barbiturates Screen NEGATIVE, Ur Phencyclidine Scrn NEGATIVE, Ur Amphetamines Screen NEGATIVE, U Benzodiazepines Scrn NEGATIVE, Urine Cocaine Screen NEGATIVE, U Cannabinoids Screen NEGATIVE 11/18/25 19:14: Ammonia 28.4, TSH 5.900 H, Free T4 0.80, Free T3 pg/dL 2.9 Imaging Radiology Impression Brain CT 11/18/25 18:40 IMPRESSION: No acute intracranial abnormalities. Reading Location: [facility] Head/Neck CTA 11/18/25 18:40 IMPRESSION: No acute vascular abnormalities of the head or neck. Reading Location: [facility] Chest X-Ray 11/18/25 18:45 IMPRESSION: No acute cardiopulmonary findings. Reading Location: [facility] Assessment & Plan Assessment/Plan (1) Anterograde amnesia: (2) Essential hypertension: (3) HLD (hyperlipidemia): QUALIFIERS: Hyperlipidemia type: pure hypercholesterolemia Q ualified Code(s): E78.00 - Pure hypercholesterolemia, unspecified PLAN: Plan Place in observation in [facility] Likely transient global amnesia, may resolve within 24 hours. Family is updated and aware MRI brain while patient is here. If negative and remain amnestic beyond 24 hours consult neurology Basic workup including images and chemistries and toxicology are negative Continue lisinopril for hypertension He is not taking his Crestor, he had concerns about developing dementia from statin. His last total cholesterol close to 500, very elevated, his cardiology is following this Diet: Regular Code: Full VTE prophylaxis: Ambulatory Charges/Coding Visit Charges OBSV E&M: 48077 Observ/hosp same date L3
--- OUTSIDE RECORDS SUMMARY | 2025-11-18 20:53 | XMS RPT_ITS | CCD ---
Author Organization [facility] Care Team Providers Care Manager Supply Chain Planning Name Role Phone MD Gibbons Cyril S Unavailable KB Jane, Radha Xiao Unavailable Adithya Kam Unavailable Unavailable Kristen AZEVEDO, Corina Tatum Unavailable Unavailable KETAN GIBBONS Unavailable Unavailable PURNIMA SCOTT Unavailable Unavailable EMPLOYMENT, PHYSICAL Unavailable Unavailable Adithya Kam Unavailable Unavailable KB Jane, Radha Xiao Unavailable [phone] Adityha Kam Unavailable Unavailable PURNIMA MACEDO DO Primary [...] Alfred PIERCE, Dr. Jaron Tatum Attending Provider [phone] Augustus PIERCE, Jimmie Primary Care Provider Augustus PIERCE, Jimmie Referring Provider [phone] Jeovany Castle Attending Provider Augustus, Chalon Referring [...] Unavailable Augustus, Chalon Primary Care Unavailable Jeovany Csatle Attending Unavailable Augustus, Chalon Referring Unavailable Augustus, Chalon Primary Care Unavailable Augustus, Jeremyon Attending Unavailable Augustus, Chalon Referring Unavailable JaneRadha Mcginnis Attending Unavail able Augustus, Chalon Primary Care Unavailable Allergies Allergy Classification Reported Allergen(s) Allergy Type Date of Onset Reaction(s) Facility (1 source) atorvastatin; Translations: [atorvastatin] Drug Allergy [facility] Medications Current Medications Medication Drug Class(es) Dates [...] One tablet by mouth daily CITALOPRAM HYDROBROMIDE 17174323684 Ketan Gibbons MD Multivitamin (Daily Multi-Vitamin) tablet [...] TABS One tablet by mouth daily ASPIRIN 44425075261 Adelaida Bennett RN Start: 11-10-2011 take 1 tablet by wily th once daily ASPIRIN 81 MG TABS One tablet by mouth daily ASPIRIN 35183826510 Adelaida Bennett RN Start: 11-10-2011 take 1 tablet by wily th once daily ASPIRIN EC 81 MG TBEC One tablet by mouth daily ASPIRIN 02635232309 Corina Peterson RN atorvastatin 40 mg oral [...] One tablet by mouth daily ATORVASTATIN CALCIUM 55819876227 Ketan Gibbons MD fenofibrate 145 mg oral [...] TABS One tablet by mouth daily FENOFIBRATE 59669740179 Ketan Gibbons MD ferrous sulfate 325 mg oral tablet (16 sources) Start: 11-10-2011 End: 05-21-2016 take 1 tablet by mouth once daily FERROUS SULFATE 325 (65 Fe) MG TABS One tablet by mouth daily FERROUS SULFATE 22181149686 Radha Jane PA-C Fish Oils (20 sources) Start: 11-10-2011 End: 05-21-2016 take 2 tablets by mouth once daily FISH OIL CAPS Two tablets by mouth daily OMEGA-3 FATTY ACIDS CAPS 69898034861 Radha Jane PA-C Start: 11-10-2011 take [address] [facility] once daily FISH OIL CAPS Two tablets by mouth daily OMEGA-3 FATTY ACIDS CAPS 27016354166 Niyah Roberts RN Start: 11-10-2011 take 1 tablet by wily once daily FISH OIL CAPS One tablet by mouth daily OMEGA-3 FATTY ACIDS CAPS 48377949672 Adelaida Bennett RN lisinopril 10 mg oral [...] One tablet by mouth daily MULTIPLE VITAMIN 96370051063 Adelaida Bennett RN MULTIPLE VITAMIN (3 sources) Start: 11-10-2011 take 1 tablet by mouth once daily MULTIVITAMINS TABS One tablet by mouth daily MULTIPLE VITAMIN 06864412208 Adelaida Bennett RN rosuvastatin calcium 40 mg [...] One tablet by mouth daily ROSUVASTATIN CALCIUM 02231048909 Ketan Gibbons MD Problems Active Problems Problem Classification Problem Date Documented Da te Episodic/Chronic Coronary atherosclerosis and other heart disease (13 sources) Coronary arteriosclerosis; Translations: [Atherosclerotic heart disease of [place] coronary artery without angina pectoris] Onset: 11-10-2011 [...] (3 sources) Long-term drug therapy; Translations: [Other salvage determiner (current) drug therapy] Onset: 11-10-2011 11-10-2011 Past or Other Problems Problem Classification Problem Date Documented Date Episodic/Chronic Other aftercare (5 sources) Other salvage determiner (current) drug therapy; Translations: [Other salvage determiner (current) drug therapy] Onset: 11-10-2011 11-10-2011 Episodic [...] Reporton 0 07-11-2025 Urgent Care Visit Report [facility] [address], [address] [place] [address] OFFICE VISIT Date of Service: 07/11/25 MR#: [id number] Acct: [id number] Name: SATINDER ABBASI Rep #: [id number] : 1955 Provider: PRABHA Weaver Age/Sex: 69/M Location: [facility] Status: Signed Intake Vital Signs 03/01/25 13:19 Height 5 ft 7 in Weight: 161 lb 8 oz BMI 25.2 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 Feliz nieto MD Age/Sex: 69/M Location: [facility] Status: Signed Intake Vital Signs 10/17/24 10:25 [...] and fell - tried to catch himself) [facility] Medical History (Updated 03/01/25 @ 13:44 by [...] surgery it was so painful. Supplemental Info [facility] Imaging Services [address] [place], [place] [id number] Shoulder min 2 Views MR#: [id number] Acct: [id number] Name: SATINDER ABBASI Rep #: [id number] : 1955 M 68 From: Sami Scott MD PCP: Dr. Jimmie Coffman MD Status: REG CLI Study: Shoulder min 2 Views Date of Exam: 12/14/24 Exam# [id number] Ordering Dr: Jimmie Coffman MD [id number] STUDY: X-RAY - LEFT SHOULDER REASON FOR [...] Sami Scott MD at 12:12 EST , [facility] Imaging Services [address] [place] [id number] Upper Ext Joint Only(Routine) MR#: [id number] Acct: [id number] Name: SATINDER ABBASI Rep #: [id number] : 1955 M 69 From: Kevyn Mccarty DO PCP: Dr. Jimmie Coffman MD Status: REG CLI Study: Upper Ext Joint Only(Routine) Date of Exam: 02/20/25 Exam# [id number] Ordering Dr: Jimmie Coffman MD EXAM: Noncontrast [...] and mai (more content not included)... Normal [facility] Magnetic resonance imaging r eportOrdered By: Kevyn Mccarty on 02-23-2025 Study report [facility] Imaging Services [address] [place] [address] Upper Ext Joint Only(Routine) MR#: [id number] Acct: [id number] Name: SATINDER ABBASI Rep #: [id number] : 1955 M 69 From: Angelito Mccarty DO PCP: Dr. Jimmie Coffman MD Status: REG CL I Study:Upper Ext Joint Only(Routine) Date of Exam: 02/20/25 Exam# [id number] Ordering Dr: Mariposa Coffman MD EXAM: Noncontrast [...] Tear of the biceps tendon. Reading Location: [facility] CC: Dr. Jimmie Coffman MD ~ Proteomics Scientist: Signed [facility] Upper Ext Joint Only(Routine )on 02-20-2025 Upper Ext Joint Only(Routine) [facility] Services [address] [place], [place] [address] Upper Ext Joint Only(Routine) MR#: [id number] Acct: [id number] Name: SATINDER ABBASI Rep #: [id number] : 1955 M 69 From: Kevyn Mccarty DO PCP: Dr. Jimmie Coffman MD Status: REG CLI Study: Upper Ext Joint Only(Routine) Date of Exam: 0 02/20/25 Exam# [id number] Ordering Dr: Jimmie Coffman MD EXAM: Noncontrast [...] Tear of the biceps tendon. Reading Location: [facility] CC: Dr. Jimmie Coffman MD Proteomics Scientist: Signed Normal [facility] AAA Screeningon 01-08-2025 AAA Screening [facility] [place] [address] AAA Screening 01/08/25 0820 MR#: [id number] Acct: [id number] Name: SATINDER ABBASI Rep #: [id number] : 1955 69 From: Jaron Simon MD Attending Dr: Dr. Jimmie Coffman MD Status: REG Bonnie BETTY Ordering Dr: Jimmie Coffman MD Date: 01/08/25 Location: [facility] Sex: M C Admitted: Reason For Study [...] Aorta IVC Iliac vasculature or bypass grafts 81987. Exam performed in department. VL/AAA Screening Interpretation [...] MD Date Dictated: 01/08/25819 Date Transcribed: 01/08/251710 Proteomics Scientist: Signed Normal [facility] Shoulder min 2 Viewson 12-14 Shoulder min 2 Views [facility] Imaging Services [address] [place] [address] Shoulder min 2 Views MR#: [id number] Acct: [id number] Name: SATINDER ABBSAI Rep #: [id number] : 1955 M 68 From: Sami Scott MD PCP: Dr. Jimmie Coffman MD Status: REG CLI Study: Shoulder min 2 Views Date of Exam: 12/14/24 Exam# [id number] Ordering Dr: Jimmie Coffman MD [id number] STUDY: X-RAY - LEFT SHOULDER REASON FOR [...] 12:12 EST Reading Location ID and State: [facility] / [place] , Service support , CC: Dr. Jimmie Coffman MD Proteomics Scientist: Signed [facility] Cardiology Visit Reporton Cardiology Visit Report [facility] [address] [place], [place] [address] OFFICE VISIT Date of Service: 10/17/24 MR#: [id number] Acct: [id number] Name: SATINDER ABBASI Rep #: [id number] : 1955 Provider: PRABHA Trevino Age/Sex: 68/M Location: [facility] Status: Signed HPI HPI History of [...] NIBP Intake Visit Reasons: 1 Y FU [employer] Required: No Accompanied by: Self Is patient [...] normal and (more content not included)... Normal [facility] CBC W/Diff, Automatedon 07-23 Absolute Lymph 0.87 X10 3/uL Normal 0.83-4.51 [facility] Comment on above: Order Comment: Order Date: 06/02/24 Order Info: 0184- - CBCD Performed By: #### L 500.4100, L100.0100, L500.4050, L506.1000 #### [facility] [address] [place], [address] Absolute Neut 2.8 X10 3/uL Normal 2.0-7.7 [facility] Comment on above: Order Comment: Order Date: 06/02/24 Order Info: 0184- - CBCD Performed By: #### L 500.4100, L100.0100, L500.4050, L506.1000 #### [facility] [address] [place], [address] Basophils/100 WBC (Bld) 0.9 % Normal 0-1 [facility] Comment on above: Order Comment: Order Date: 06/02/24 Order Info: 0184-1 - CBCD Performed By: #### L 500.4100, L100.0100, L500.4050, L506.1000 #### [facility] [address] [place], [address] Eosinophils/100 WBC (Bld) 5.2 % High 0-5 [facility] Comment on above: Order Comment: Order Date: 06/02/24 Order Info: 0184-1 - CBCD Performed By: #### L 500.4100, L100.0100, L500.4050, L506.1000 #### [facility] [address] [place], [address] Erythrocyte distribution width (RBC) [Ratio] 12.7 % Normal 11.6-14.6 [facility] Comment on above: Order Comment: Order Date: 06/02/24 Order Info: 0184- - CBCD Performed By: #### L 500.4100, L100.0100, L500.4050, L506.1000 #### [facility] [address] [place], [address] Hematocrit (Bld) [Volume fraction] 40.9 % Normal 40-54 [facility] Comment on above: Order Comment: Order Date: 06/02/24 Order Info: 0184-1 - CBCD Performed By: #### L 500.4100, L100.0100, L500.4050, L506.1000 #### [facility] [address] [place], [address] Hemoglobin (Bld) [Mass/Vol] 14.1 g/dL Normal 13.0-16.5 [facility] Comment on above: Order Comment: Order Date: 06/02/24 Order Info: 018-1 - CBCD Performed By: #### L 500.4100, L100.0100, L500.4050, L506.1000 #### [facility] [address] [place], [address] IG% 0.200 Normal 0.0-0.9 [facility] Comment on above: Order Comment: Order Date: 06/02/24 Order Info: 018- - CBCD Result Comment: IG% - Immature Granulocytes (promyelocytes, myelocytes and metamyelocytes) > 1% indicates that a LEFT SHIFT is Present. Performed By: #### L 500.4100, L100.0100, L500.4050, L506.1000 #### [facility] [address] [place], [address] Lymphocytes/100 WBC (Bld) 19.6 % Normal 19-41 [facility] Comment on above: Order Comment: Order Date: 06/02/24 Order Info: 01802-20 - CBCD Performed By: #### L 500.4100, L100.0100, L500.4050, L506.1000 #### [facility] [address] [place], [address] MCH (RBC) [Entitic mass] 31.5 pg Normal 27.0-32.0 [facility] Comment on above: Order Comment: Order Date: 06/02/24 Order Info: 01802-20 - CBCD Performed By: #### L 500.4100, L100.0100, L500.4050, L506.1000 #### [facility] [address] [place], [address] MCHC (RBC) [Mass/Vol] 34.5 g/dL Normal 32-36 [facility] Comment on above: Order Comment: Order Date: 06/02/24 Order Info: 018- - CBCD Performed By: #### L 500.4100, L100.0100, L500.4050, L506.1000 #### [facility] [address] [place], [address] MCV (RBC) [Entitic vol] 91.5 fL Normal 80-94 [facility] Comment on above: Order Comment: Order Date: 06/02/24 Order Info: 0184-1 - CBCD Performed By: #### L 500.4100, L100.0100, L500.4050, L506.1000 #### [facility] [address] [place], [address] Monocytes/100 WBC (Bld) 11.9 % High 0-10 [facility] Comment on above: Order Comment: Order Date: 06/02/24 Order Info: 0184-1 - CBCD Performed By: #### L 500.4100, L100.0100, L500.4050, L506.1000 #### [facility] [address] [place], [address] Neutrophils/100 WBC (Bld) 62.2 % Normal 47-70 [facility] Comment on above: Order Comment: Order Date: 06/02/24 Order Info: 0184-1 - CBCD Performed By: #### L 500.4100, L100.0100, L500.4050, L506.1000 #### [facility] [address] [place], [address] Nucleated RBC (Bld) [#/Vol] 0 10*3/uL Normal 0-5 [facility] Comment on above: Order Comment: Order Date: 06/02/24 Order Info: 0184-1 - CBCD Performed By: #### L 500.4100, L100.0100, L500.4050, L506.1000 #### [facility] [address] [place], [address] Platelet mean volume (Bld) [Entitic vol] 9.4 fL Normal 6.2-12.0 [facility] Comment on above: Order Comment: Order Date: 06/02/24 Order Info: 0184-1 - CBCD Performed By: #### L 500.4100, L100.0100, L500.4050, L506.1000 #### [facility] [address] [place], [address] Platelets (Bld) [#/Vol] 221 10*3/uL Normal 150-450 [facility] Comment on above: Order Comment: Order Date: 06/02/24 Order Info: 0184-1 - CBCD Performed By: #### L 500.4100, L100.0100, L500.4050, L506.1000 #### [facility] [address] [place], [address] RBC (Bld) [#/Vol] 4.47 10*6/uL Low 4.6-6.2 [facility] Comment on above: Order Comment: Order Date: 06/02/24 Order Info: 0184-1 - CBCD Performed By: #### L 500.4100, L100.0100, L500.4050, L506.1000 #### [facility] [address] [place], [address] RDW SD 42.7 fl Normal 35.1-43.9 [facility] Comment on above: Order Comment: Order Date: 06/02/24 Order Info: 0184-1 - CBCD Performed By: #### L 500.4100, L100.0100, L500.4050, L506.1000 #### [facility] [address] [place], [address] WBC (Bld) [#/Vol] 4.4 10*3/uL Normal 4.4-11.0 [facility] Comment on above: Order Comment: Order Date: 06/02/24 Order Info: 0184-1 - CBCD Performed By: #### L 500.4100, L100.0100, L500.4050, L506.1000 #### [facility] [address] [place], [address] Comprehensive Metabolic Prof ilon 08-04-2024 Albumin [Mass/Vol] 3.2 g/dL Normal 3.2-5.0 [facility] Comment on above: Order Comment: Order Date: 06/02/24 Order Info: 0786-1 - CMP Order Info: [id number] - LIPID Performed By: #### L 500.4100, L100.0100, L500.4050, L506.1000 #### [facility] [address] [place], [address] Albumin/Globulin [Mass ratio] 0.9 {ratio} Normal 0.9-2.4 [facility] Comment on above: Order Comment: Order Date: 06/02/24 Order Info: 0786-1 - CMP Order Info: [id number] - LIPID Performed By: #### L 500.4100, L100.0100, L500.4050, L506.1000 #### [facility] [address] [place], [address] ALK P 85 U/L Normal 45-117 [facility] Comment on above: Order Comment: Order Date: 06/02/24 Order Info: 0786-1 - CMP Order Info: [id number] - LIPID Performed By: #### L 500.4100, L100.0100, L500.4050, L506.1000 #### [facility] [address] [place], [address] ALT [Catalytic activity/Vol] 32 U/L Normal 16-61 [facility] Comment on above: Order Comment: Order Date: 06/02/24 Order Info: 0786-1 - CMP Order Info: [id number] - LIPID Performed By: #### L 500.4100, L100.0100, L500.4050, L506.1000 #### [facility] [address] [place], [address] AST [Catalytic activity/Vol] 25 U/L Normal 15-37 [facility] Comment on above: Order Comment: Order Date: 06/02/24 Order Info: 0786-1 - CMP Order Info: [id number] - LIPID Performed By: #### L 500.4100, L100.0100, L500.4050, L506.1000 #### [facility] [address] [place], [address] Bilirubin [Mass/Vol] 0.40 mg/dL Normal 0.20-1.00 [facility] Comment on above: Order Comment: Order Date: 06/02/24 Order Info: 07- - CMP Order Info: [id number] - LIPID Result Comment: For patients on eltrombopag therapy, use of Dimension Bates TBIL is not recommended. Performed By: #### L 500.4100, L100.0100, L500.4050, L506.1000 #### [facility] [address] [place], [address] BUN/CRE 13.9 RATIO Normal 10-20 [facility] Comment on above: Order Comment: Order Date: 06/02/24 Order Info: 0786- - CMP Order Info: [id number] - LIPID Performed By: #### L 500.4100, L100.0100, L500.4050, L506.1000 #### [facility] [address] [place], [address] CA,Total 9.2 mg/dL Normal 8.5-10.1 [facility] Comment on above: Order Comment: Order Date: 06/02/24 Order Info: 0786- - CMP Order Info: [id number] - LIPID Performed By: #### L 500.4100, L100.0100, L500.4050, L506.1000 #### [facility] [address] [place], [address] Chloride [Moles/Vol] 108 mmol/L High 98-107 [facility] Comment on above: Order Comment: Order Date: 06/02/24 Order Info: 0786- - CMP Order Info: [id number] - LIPID Performed By: #### L 500.4100, L100.0100, L500.4050, L506.1000 #### [facility] [address] [place], [address] CO2 [Moles/Vol] 28.0 mmol/L Normal 21.0-32.0 [facility] Comment on above: Order Comment: Order Date: 06/02/24 Order Info: 0786- - CMP Order Info: [id number] - LIPID Performed By: #### L 500.4100, L100.0100, L500.4050, L506.1000 #### [facility] [address] [place], [address] Creatinine [Mass/Vol] 0.79 mg/dL Normal 0.70-1.30 [facility] Comment on above: Order Comment: Order Date: 06/02/24 Order Info: 0786 - CMP Order Info: [id number] - LIPID Result Comment: The validity of the calculated GFR GFRAA in patients over 70 years has not been determined. Clinical correlation is essential. Performed By: #### L 500.4100, L100.0100, L500.4050, L506.1000 #### [facility] [address] [place], [address] EST GFR - AA 125 mL/min Normal >60 [facility] Comment on above: Order Comment: Order Date: 06/02/24 Order Info: 0786 - CMP Order Info: [id number] - LIPID Result Comment: Afri can Citizen Of [place] GFR Calc Performed By: #### L 500.4100, L100.0100, L500.4050, L506.1000 #### [facility] [address] [place], [address] GAP 5 Normal 5-15 [facility] Comment on above: Order Comment: Order Date: 06/02/24 Order Info: 0786- - CMP Order Info: [id number] - LIPID Performed By: #### L 500.4100, L100.0100, L500.4050, L506.1000 #### [facility] [address] [place], [address] GFR/1.73 sq M.predicted among non-blacks MDRD (S/P/Bld) [Vol rate/Area] 103 mL/min/{1.73_m2} Normal >60 [facility] Comment on above: Order Comment: Order Date: 06/02/24 Order Info: 0786-1 - CMP Order Info: [id number] - LIPID Result Comment: Non- GFR Calc Performed By: #### L 500.4100, L100.0100, L500.4050, L506.1000 #### [facility] [address] [place], [address] Globulin (S) [Mass/Vol] 3.4 g/dL Normal 2.2-4.2 [facility] Comment on above: Order Comment: Order Date: 06/02/24 Order Info: 0786- - CMP Order Info: [id number] - LIPID Performed By: #### L 500.4100, L100.0100, L500.4050, L506.1000 #### [facility] [address] [place], [address] Glucose [Mass/Vol] 118 mg/dL High 74-106 [facility] Comment on above: Order Comment: Order Date: 06/02/24 Order Info: 0786-1 - CMP Order Info: [id number] - LIPID Result Comment: Fast ing Glucose result from 100 to 125 mg/dL suggests IMPAIRED HOMEOSTASIS per A.D.A. criteria. Performed By: #### L 500.4100, L100.0100, L500.4050, L506.1000 #### [facility] [address] [place], [address] Potassium [Moles/Vol] 4.1 mmol/L Normal 3.5-5.1 [facility] Comment on above: Order Comment: Order Date: 06/02/24 Order Info: 0786-1 - CMP Order Info: [id number] - LIPID Performed By: #### L 500.4100, L100.0100, L500.4050, L506.1000 #### [facility] [address] [place], [address] Sodium [Moles/Vol] 141 mmol/L Normal 136-145 [facility] Comment on above: Order Comment: Order Date: 06/02/24 Order Info: 0786- - CMP Order Info: [id number] - LIPID Performed By: #### L 500.4100, L100.0100, L500.4050, L506.1000 #### [facility] [address] [place], [address] T PROT 6.6 g/dL Normal 6.4-8.2 [facility] Comment on above: Order Comment: Order Date: 06/02/24 Order Info: 0786 - CMP Order Info: [id number] - LIPID Performed By: #### L 500.4100, L100.0100, L500.4050, L506.1000 #### [facility] [address] [place], [address] Urea nitrogen [Mass/Vol] 11 mg/dL Normal 7-18 [facility] Comment on above: Order Comment: Order Date: 06/02/24 Order Info: 0786- - CMP Order Info: [id number] - LIPID Performed By: #### L 500.4100, L100.0100, L500.4050, L506.1000 #### [facility] [address] [place], [address] Lipid Profileon 08-04-2024 Cholesterol [Mass/Vol] 397 mg/dL High 200 [facility] Comment on above: Order Comment: Order Date: 06/02/24 Order Info: 0786- - CMP Order Info: [id number] - LIPID Result Comment: <200 mg/dL Desirable 200-240 mg/dL Borderline >240 mg/dL High Risk Performed By: #### L 500.4100, L100.0100, L500.4050, L506.1000 #### [facility] [address] [place], [address] Cholesterol in HDL [Mass/Vol] 46 mg/dL Normal [facility] Comment on above: Order Comment: Order Date: 06/02/24 Order Info: 0786-1 - CMP Order Info: [id number] - LIPID Result Comment: The drugs N-Acetylcysteine and Metamizole may falsely depress this assay. Reference Range HDL <40 mg/dL Low HDL Cholesterol HDL >or= 60 mg/dL High HDL Cholesterol Performed By: #### L 500.4100, L100.0100, L500.4050, L506.1000 #### [facility] [address] [place], [address] Cholesterol in LDL [Mass/Vol] 323 mg/dL High 0-130 [facility] Comment on above: Order Comment: Order Date: 06/02/24 Order Info: 0786- - CMP Order Info: [id number] - LIPID Performed By: #### L 500.4100, L100.0100, L500.4050, L506.1000 #### [facility] [address] [place], [address] Cholesterol in VLDL [Mass/Vol] 28 mg/dL Normal 5-40 [facility] Comment on above: Order Comment: Order Date: 06/02/24 Order Info: 0786-1 - CMP Order Info: [id number] - LIPID Performed By: #### L 500.4100, L100.0100, L500.4050, L506.1000 #### [facility] [address] [place], [address] Triglyceride [Mass/Vol] 139 mg/dL Normal [facility] Comment on above: Order Comment: Order Date: 06/02/24 Order Info: 0786-1 - CMP Order Info: [id number] - LIPID Result Comment: The drugs N-Acetylcysteine and Metamizole may falsely depress this assay. Serum Triglycerides Reference Interval Normal <150 mg/dL Borderline high 150 - 199 mg/dL High 200 - 499 mg/dL Very High > or = 500 mg/dL Performed By: #### L 500.4100, L100.0100, L500.4050, L506.1000 #### [facility] [address] [place], [address] Cholesterol [Mass/Vol] 400 mg/dL High 200 [facility] Comment on above: Result Comment: <200 mg/dL Desirable 200-240 mg/dL Borderline >240 mg/dL High Risk Performed By: #### L 500.4100, L500.3400 #### [facility] [address] [place], [place], [address] Cholesterol in HDL [Mass/Vol] 44 mg/dL Normal [facility] Comment on above: Result Comment: The drugs N-Acetylcysteine and Metamizole may falsely depress this assay. Reference Range HDL <40 mg/dL Low HDL Cholesterol HDL >or= 60 mg/dL High HDL Cholesterol Performed By: #### L 500.4100, L500.3400 #### [facility] [address] [place], [address] Cholesterol in LDL [Mass/Vol] 328 mg/dL High 0-130 [facility] Comment on above: Performed By: #### L 500.4100, L500.3400 #### [facility] [address] [place], [address] Cholesterol in VLDL [Mass/Vol] 28 mg/dL Normal 5-40 [facility] Comment on above: Performed By: #### L 500.4100, L500.3400 #### [facility] [address] [place], [address] Triglyceride [Mass/Vol] 141 mg/dL Normal [facility] Comment on above: Result Comment: The drugs N-Acetylcysteine and Metamizole may falsely depress this assay. Serum Triglycerides Reference Interval Normal <150 mg/dL Borderline high 150 - 199 mg/dL High 200 - 499 mg/dL Very High > or = 500 mg/dL Performed By: #### L 500.4100, L500.3400 #### [facility] [address] [place], [address] Liver Profileon 08-04-2024 Albumin [Mass/Vol] 3.1 g/dL Low 3.2-5.0 [facility] Comment on above: Performed By: #### L 500.4100, L500.3400 #### [facility] [address] [place], [address] ALK P 86 U/L Normal 45-117 [facility] Comment on above: Performed By: #### L 500.4100, L500.3400 #### [facility] [address] [place], [address] ALT [Catalytic activity/Vol] 33 U/L Normal 16-61 [facility] Comment on above: Performed By: #### L 500.4100, L500.3400 #### [facility] [address] [place], [address] AST [Catalytic activity/Vol] 26 U/L Normal 15-37 [facility] Comment on above: Performed By: #### L 500.4100, L500.3400 #### [facility] [address] [place], [address] Bilirubin [Mass/Vol] 0.50 mg/dL Normal 0.20-1.00 [facility] Comment on above: Result Comment: For patients on eltrombopag therapy, use of Dimension Bates TBIL is not recommended. Performed By: #### L 500.4100, L500.3400 #### [facility] [address] [place], [address] Bilirubin.direct [Mass/Vol] 0.11 mg/dL Normal 0.00-0.30 [facility] Comment on above: Performed By: #### L 500.4100, L500.3400 #### [facility] [address] [place], [address] Globulin (S) [Mass/Vol] 3.4 g/dL Normal 2.2-4.2 [facility] Comment on above: Performed By: #### L 500.4100, L500.3400 #### [facility] [address] [place], [address] T PROT 6.5 g/dL Normal 6.4-8.2 [facility] Comment on above: Performed By: #### L 500.4100, L500.3400 #### [facility] [address] [place], [address] Vitamin D,25 Hydroxyon 08-04 Vitamin D 25-OH 39.7 ng/mL Normal [facility] Comment on above: Order Comment: Order Date: 06/02/24Order Info: [id number] Result Comment: Bessie min D 25(OH) Status Range Deficiency <20 ng/mL (50nmol/L) Insufficiency 20 - 30 ng/mL (50 - 75 nmol/L) Sufficiency 30 - 100 ng/mL (75 - 250 nmol/L) Toxicity >100 ng/mL (>250 nmol/L) Performed By: #### L 500.4100, L100.0100, L500.4050, L506.1000 ####[facility] [address] [place], [address] No Panel InformationOrdered By: Isreal Ascencio on 11-25-2023 Prostate Specific Antigen Screen 1.97 ng/mL 0.00-4.00 [facility] Comment on above: This test was perfor med using the TPSA assay method [facility]. Values obtained with differentassay methods cannot be used interchangably.When changing PSA assays in the course of monitoring apatient, additional sequential testing should be carriedout to confirm baseline values. Basophil percentageOrdered B y: Radha Jane on 08-03-2023 Bilirubin [Mass/Vol] 0.40 mg/dL 0.20-1.00 [facility] Comment on above: For patients on eltr ombopag therapy, use of Dimension Bates TBIL is not recommended. Chloride [Moles/Vol] 110 mmol/L 98-107 [facility] Cholesterol [Mass/Vol] 200 mg/dL <200 [facility] Comment on above: <200 mg/dL Desirable 200-240 mg/dL Borderline >240 mg/dL High Risk Glucose [Mass/Vol] 104 mg/dL 74-106 [facility] Comment on above: Fasting Glucose resu lt from 100 to 125 mg/dL suggests IMPAIRED HOMEOSTASIS per A.D.A. criteria. Potassium [Moles/Vol] 4.0 mmol/L 3.5-5.1 [facility] Protein [Mass/Vol] 6.9 g/dL 6.4-8.2 [facility] Sodium [Moles/Vol] 143 mmol/L 136-145 [facility] Triglyceride [Mass/Vol] 70 mg/dL <199 [facility] Comment on above: The drugs N-Acetylcy steine and Metamizole may falsely depress this assay.Serum Triglycerides Reference Interval Normal <150 mg/dL Borderline high 150 - 199 mg/dL High 200 - 499 mg/dL Very High > or = 500 mg/dL Laboratory - Chemistry and C hemistry - challengeOrdered By: Radha Jane on 08-03-2023 ALP [Catalytic activity/Vol] 38 U/L 45-117 [facility] ALT [Catalytic activity/Vol] 31 U/L 16-61 [facility] CO2 [Moles/Vol] 29.0 mmol/L 21.0-32.0 [facility] Globulin (S) [Mass/Vol] 3.3 g/dL 2.2-4.2 [facility] Urea nitrogen/Creatinine [Mass ratio] 13.0 mg/mg 10-20 [facility] No Panel InformationOrdered By: Radha Jane on 08-03-2023 Estimated GFR (MDRD) Amer 96 mL/min >60 [facility] Comment on above: GFR Calc Estimated GFR (MDRD) Non-Af Amer 80 mL/min >60 [facility] Comment on above: Non- GFR Calc Serum or plasma albumin rebeca urement (mass/volume)Ordered By: Radha Jane on 08-03-2023 Albumin [Mass/Vol] 3.6 g/dL 3.2-5.0 [facility] Serum or plasma albumin/glob ulin mass ratioOrdered By: Radha Jane on 08-03-2023 Albumin/Globulin [Mass ratio] 1.1 {ratio} 0.9-2.4 [facility] Serum or plasma calcium rebeca urement (mass/volume)Ordered By: Radha Jane on 08-03-2023 Calcium [Mass/Vol] 8.9 mg/dL 8.5-10.1 [facility] Serum or plasma cholesterol in HDL measurement (mass/volume)Ordered By: Radha Jane on 08-03-2023 Cholesterol in HDL [Mass/Vol] 49 mg/dL >40 [facility] Comment on above: The drugs N-Acetylcy steine and Metamizole may falsely depress this assay. Reference Range HDL <40 mg/dL Low HDL Cholesterol HDL >or= 60 mg/dL High HDL Cholesterol Serum or plasma cholesterol in VLDL measurement (mass/volume)Ordered By: Radha Jane on 08-03-2023 Cholesterol in VLDL [Mass/Vol] 14 mg/dL 5-40 [facility] Serum or plasma creatinine m easurement (mass/volume)Ordered By: Radha Jane on 08-03-2023 Creatinine [Mass/Vol] 1.00 mg/dL 0.70-1.30 [facility] Comment on above: The validity of the calculated GFR & GFRAA in patients over 70 years has not been determined. Clinical correlation is essential. Serum or plasma low density lipoprotein (LDL) cholesterol measurement (mass/volume)Ordered By: Radha Jane on 08-03-2023 Cholesterol in LDL [Mass/Vol] 137 mg/dL 0-130 [facility] Serum or plasma urea nitroge n measurement (mass/volume)Ordered By: Radha Jane on 08-03-2023 Urea nitrogen [Mass/Vol] 13 mg/dL 7-18 [facility] Thin prep Papanicolaou smear with manual screeningOrdered By: Radha Jane on 08-03-2023 Thin prep Papanicolaou smear with manual screening 19 U/L 15-37 [facility] Thin prep Papanicolaou smear with manual screening 4 5-15 [facility] Basophil percentageOrdered B y: Radha Jane on 11-30-2022 Bilirubin [Mass/Vol] 0.50 mg/dL 0.20-1.00 [facility] Comment on above: For patients on eltr ombopag therapy, use of Dimension Bates TBIL is not recommended. Chloride [Moles/Vol] 109 mmol/L 98-107 [facility] Cholesterol [Mass/Vol] 210 mg/dL <200 [facility] Comment on above: <200 mg/dL Desirable 200-240 mg/dL Borderline >240 mg/dL High Risk Glucose [Mass/Vol] 96 mg/dL 74-106 [facility] Potassium [Moles/Vol] 4.4 mmol/L 3.5-5.1 [facility] Protein [Mass/Vol] 6.7 g/dL 6.4-8.2 [facility] Sodium [Moles/Vol] 143 mmol/L 136-145 [facility] Triglyceride [Mass/Vol] 72 mg/dL <199 [facility] Comment on above: The drugs N-Acetylcy steine and Metamizole may falsely depress this assay.Serum Triglycerides Reference Interval Normal <150 mg/dL Borderline high 150 - 199 mg/dL High 200 - 499 mg/dL Very High > or = 500 mg/dL Laboratory - Chemistry and C hemistry - challengeOrdered By: Radha Jane on 11-30-2022 ALP [Catalytic activity/Vol] 39 U/L 45-117 [facility] ALT [Catalytic activity/Vol] 29 U/L 16-61 [facility] CO2 [Moles/Vol] 27.0 mmol/L 21.0-32.0 [facility] Globulin (S) [Mass/Vol] 2.8 g/dL 2.2-4.2 [facility] Urea nitrogen/Creatinine [Mass ratio] 15.0 mg/mg 10-20 [facility] No Panel InformationOrdered By: Radha Jane on 11-30-2022 Estimated GFR (MDRD) Amer 96 mL/min >60 [facility] Comment on above: GFR Calc Estimated GFR (MDRD) Non-Af Amer 80 mL/min >60 [facility] Comment on above: Non- GFR Calc Serum or plasma albumin rebeca urement (mass/volume)Ordered By: Radha Jane on 11-30-2022 Albumin [Mass/Vol] 3.9 g/dL 3.2-5.0 [facility] Serum or plasma albumin/glob ulin mass ratioOrdered By: Radha Jane on 11-30-2022 Albumin/Globulin [Mass ratio] 1.4 {ratio} 0.9-2.4 [facility] Serum or plasma calcium rebeca urement (mass/volume)Ordered By: Radha Jane on 11-30-2022 Calcium [Mass/Vol] 9.2 mg/dL 8.5-10.1 [facility] Serum or plasma cholesterol in HDL measurement (mass/volume)Ordered By: Radha Jane on 11-30-2022 Cholesterol in HDL [Mass/Vol] 51 mg/dL >40 [facility] Comment on above: The drugs N-Acetylcy steine and Metamizole may falsely depress this assay. Reference Range HDL <40 mg/dL Low HDL Cholesterol HDL >or= 60 mg/dL High HDL Cholesterol Serum or plasma cholesterol in VLDL measurement (mass/volume)Ordered By: Radha Jane on 11-30-2022 Cholesterol in VLDL [Mass/Vol] 14 mg/dL 5-40 [facility] Serum or plasma creatinine m easurement (mass/volume)Ordered By: Radha Jane on 11-30-2022 Creatinine [Mass/Vol] 1.00 mg/dL 0.70-1.30 [facility] Comment on above: The validity of the calculated GFR & GFRAA in patients over 70 years has not been determined. Clinical correlation is essential. Serum or plasma low density lipoprotein (LDL) cholesterol measurement (mass/volume)Ordered By: Radha Jane on 11-30-2022 Cholesterol in LDL [Mass/Vol] 145 mg/dL 0-130 [facility] Serum or plasma urea nitroge n measurement (mass/volume)Ordered By: Radha Jane on 11-30-2022 Urea nitrogen [Mass/Vol] 15 mg/dL 7-18 [facility] Thin prep Papanicolaou smear with manual screeningOrdered By: Radha Jane on 11-30-2022 Thin prep Papanicolaou smear with manual screening 22 U/L 15-37 [facility] Thin prep Papanicolaou smear with manual screening 7 5-15 [facility] Final Surgical Pathology Rep manisha 01-07-2022 Final Surgical Pathology Report . Pathology Reports Accession: Collected Date/Time: Received Date/Time: Pathologist: [id number] 01/05/2022 10:08 EST 01/06/2022 09:15 EST MD JUANCHO GRIJALVA Final Surgical Pathology Report DIAGNOSIS: COLON, 12CM, BIOPSY - SLIGHTLY POLYPOID FRAGMENTS OF COLONIC MUCOSA WITH MILD NONSPECIFIC FIBROSIS OF LAMINA PROPRIA AND FOCAL REACTIVE HYPERPLASTIC CHANGES. NEGATIVE FOR DYSPLASIA OR NEOPLASIA. COMMENT: [place] [id number] CLINICAL INFORMATION: Procedure: FLEXIBLE SIGMOIDOSCOPY WITH BIOPSY [...] Electronically Signed by Pathology Report verified by [facility] Electronically signed by JUANCHO GRIJALVA MD Sign out Date: 01/07/2022 15:20 Performing Lab: [facility], [address] [place] [address] ([place]) Office Visiton 06-24-2017 Documentation of current medications (procedure) Done Invalid Interpretation Code [place] [employer] Work Phone: [phone] Fall risk assessment No Invalid Interpretation Code [place] [employer] Work Phone: [phone] Clinical Lists Update: Prelo claim clerk 05-31-2017 Albumin mass conc 4.4 g/dL Invalid Interpretation Code [facility] [employer] Work Phone: [phone] Alkaline phosphatase (ALP) 39 U/L Invalid Interpretation Code [facility] [employer] Work Phone: [phone] ALP enzyme act/vol (Bld) 39 U/L [facility] [employer] Work Phone: [phone] ALT enzyme act/vol 29 U/L Invalid Interpretation Code [facility] [employer] Work Phone: [phone] AST enzyme act/vol 27 U/L Invalid Interpretation Code [place] [facility] [employer] Work Phone: [phone] Bilirubin mass conc 0.7 mg/dL Invalid Interpretation Code [place] [facility] [employer] Work Phone: [phone] Bilirubin.direct mass conc 0.1 mg/dL Invalid Interpretation Code [place] [facility] [employer] Work Phone: [phone] Bilirubin.indirect mass conc 0.6 mg/dL Invalid Interpretation Code [place] [facility] [employer] Work Phone: [phone] Cholesterol in HDL mass conc 51 mg/dL Invalid Interpretation Code [place] [facility] [employer] Work Phone: [phone] Cholesterol in LDL mass conc 209 mg/dL High [place] [facility] [employer] Work Phone: [phone] Cholesterol mass conc 271 mg/dL High [facility] [employer] Work Phone: [phone] Lipoprotein.pre-beta mass conc 11 mg/dL Invalid Interpretation Code [employer] Work Phone: [phone] Protein mass conc 6.8 g/dL Invalid Interpretation Code [employer] Work Phone: [phone] Triglyceride mass conc 56 mg/dL Invalid Interpretation Code [employer] Work Phone: [phone] HEPATIC FUNCTION PANELon Alanine aminotransferase (ALT) 29 U/L Normal 10 - 40 [facility] Comment on above: Performed By: #### 2 [id number] ####[facility] [address] [place] [address] Albumin 4.4 g/dL Normal 3.5 - 5.0 [facility] Comment on above: Performed By: #### 2 [id number] ####[facility] [address] [place] [address] ALKALINE PHOS 39 IU/L Normal 32 - 92 [facility] Comment on above: Performed By: #### 2 [id number] ####[facility] [address] [place] [address] Aspartate aminotransferase (AST) 27 U/L Normal 10 - 42 [facility] Comment on above: Performed By: #### 2 [id number] ####[facility] [address] [place] [address] Bilirubin (direct) 0.1 mg/dL Normal 0.0 - 0.2 [facility] Comment on above: Performed By: #### 2 [id number] ####[facility] [address] [place] [address] Bilirubin (direct) 0.6 mg/dL Normal 0.2 - 0.8 [facility] Comment on above: Performed By: #### 2 [id number] ####[facility] [address] [place] [address] Bilirubin (direct) 0.7 mg/dL Normal 0.2 - 1.0 [facility] Comment on above: Performed By: #### 2 [id number] ####[facility] [address] [place] [address] Protein 6.8 g/dL Normal 6.4 - 8.3 [facility] Comment on above: Performed By: #### 2 [id number] ####[facility] [address] [place] [address] LIPID-CHOL TRIG HDLon 2016 Cholesterol 271 mg/dL High 0 - 200 [facility] Comment on above: Performed By: #### 2 [id number] ####[facility] [address] [place] [address] Other Comment: LIPID PANEL Cholesterol to HDL Ratio 530 {ratio} High 0.0 - 5.0 [facility] Comment on above: Performed By: #### 2 [id number] ####[facility] [address] [place] [address] Other Comment: LIPID PANEL EST CHD RISK 1.1 High 0.0 - 1.0 [facility] Comment on above: Result Comment: \BLD [...] pre- mature CHD. Performed By: #### 2 [id number] ####[facility] [address] [place] [address] Other Comment: LIPID PANEL HDL Cholesterol 51 mg/dL Normal 30 - 70 [facility] Comment on above: Performed By: #### 2 [id number] ####[facility] [address] [place] [address] Other Comment: LIPID PANEL LDL Cholesterol 209 mg/dL High 0 - 99 [facility] Comment on above: Performed By: #### 2 [id number] ####[facility] [address] [place] [address] Other Comment: LIPID PANEL Triglyceride 56 mg/dL Normal 35 - 160 [facility] Comment on above: Performed By: #### 2 [id number] ####[facility] [address] [place] [address] Other Comment: LIPID PANEL VLDL CALC 11 mg/dl Normal 5 - 40 [facility] Comment on above: Performed By: #### 2 [id number] ####[facility] [address] [place] [address] Other Comment: LIPID PANEL Lab Report: Liver Profileon 05-21-2016 Globulin 3.1 g/dL Invalid Interpretation Code 2.3-3.5 [facility] Work Phone: [phone] Globulin mass conc (S) 3.1 g/dL 2.3-3.5 [facility] Work Phone: [phone] Office Visit: [facility] 05-21-20 16 Dietary management education, guidance, and counseling (procedure) yes Invalid Interpretation Code [facility] Work Phone: [phone] Documentation of current medications (procedure) Done Invalid Interpretation Code [facility] Work Phone: [phone] Protein mass conc Done [facility] Work Phone: [phone] Replaced Document: [facility] CG Observationson 05-21-2016 EKG QRS axis -1 deg [place] [facility] Work Phone: [phone] electrocardiogram interpretation Sinus Rhythm WITHIN NORMAL LIMITS Invalid Interpretation Code [facility] Work Phone: [phone] GE use only - for [employer] import when terms are not otherwise specified 417 ms Invalid Interpretation Code [facility] Work Phone: [phone] Interpretation Sinus Rhythm WITHIN NORMAL LIMITS [facility] Work Phone: [phone] P [place] 48 deg [facility] Work Phone: [phone] P wave axis, electrocardiogram 48 deg Invalid Interpretation Code [facility] Work Phone: [phone] DE Interval 158 ms [facility] Work Phone: [phone] DE interval, electrocardiogram 158 ms Invalid Interpretation Code [facility] Work Phone: [phone] Pulse (Heart Rate) 79 /min Invalid Interpretation Code [facility] Work Phone: [phone] QRS axis, electrocardiogram -1 deg Invalid Interpretation Code [facility] Work Phone: [phone] QRS Duration 94 ms [place] [facility] Work Phone: [phone] QRS duration, electrocardiogram 94 ms Invalid Interpretation Code [facility] Work Phone: [phone] QT Interval new path ms [place] [facility] Work Phone: [phone] QT interval, electrocardiogram new path ms Invalid Interpretation Code [facility] Work Phone: [phone] QTc Lemus 417 ms [facility] Work Phone: [phone] T Scotia -1 deg [place] [facility] Work Phone: [phone] T wave axis, electrocardiogram -1 deg Invalid Interpretation Code [facility] Work Phone: [phone] Office Visiton 05-22-2015 cardiac risk group C Invalid Interpretation Code [place] [facility] Work Phone: [phone] General cardiovascular disease 10Y risk [#] [place] N/A Invalid Interpretation Code [facility] Work Phone: [phone] Tobacco smoking status NHIS Former smoker [facility] Work Phone: [phone] Tobacco use HS Former smoker Invalid Interpretation Code [facility] Work Phone: [phone] Lab Report: GLUon 09-28-2012 Glucose 97 mg/dL Normal 70-110 [facility] Work Phone: [phone] Glucose mass conc 97 mg/dL Normal 70-110 [facility] Work Phone: [phone] Vital Signs Date Time Vital Sign Value Performing Clinician Faci lity 08-03-2023 08:30-0400 Body height 170.18 cm DO Alondraluz Cohennger Work Phone: [facility] 08-03-2023 08:30-0400 Body mass index (BMI) [Ratio] 24.4 kg/m2 DO Alondra Anuja Work Phone: [facility] 08-03-2023 08:30-0400 Body weight 70.76 kg DO Alondraluz Cohennger Work Phone: [facility] 08-03-2023 08:30-0400 Diastolic blood pressure 75 mm[Hg] DO Alondraluz Cohennger Work Phone: [facility] 08-03-2023 08:30-0400 Heart rate 60 /min DO Alondraluz Cohennger Work Phone: [facility] 08-03-2023 08:30-0400 Respiratory rate 18 /min DO Alondra Cohennger Work Phone: [facility] 08-03-2023 08:30-0400 SaO2% (BldA) [Mass fraction] 100 % DO Alondra Cohennger Work Phone: [facility] 08-03-2023 08:30-0400 Systolic blood pressure 129 mm[Hg] DO Alondra Cohennger Work Phone: [facility] 12-04-2022 10:31-0500 Body height 170.[address] Purnima Macedo Work Phone: [facility] 12-04-2022 10:31-0500 Body mass index (BMI) [Ratio] 26.9 kg/m2 Dr. Purnima Macedo Work Phone: [facility] 12-04-2022 10:31-0500 Body weight 78.[address] Purnima Macedo Work Phone: [facility] 12-04-2022 10:31-0500 Diastolic blood pressure 79 mm[Hg] Dr. Purnima Macedo Work Phone: [facility] 12-04-2022 10:31-0500 Heart rate 61 /min Dr. Purnima Macedo Work Phone: [facility] 12-04-2022 10:31-0500 Respiratory rate 18 /min Dr. Purnima Macedo Work Phone: [facility] 12-04-2022 10:31-0500 SaO2% (BldA) [Mass fraction] 98 % Dr. Purnima Macedo Work Phone: [facility] 12-04-2022 10:31-0500 Systolic blood pressure 161 mm[Hg] Dr. Purnima Macedo Work Phone: [facility] 09-01-2022 09:31-0400 Body mass index (BMI) [Ratio] 26.6 kg/m2 Dr. Purnima Macedo Work Phone: [facility] 09-01-2022 09:31-0400 Body weight 77.[address] Purnima Macedo Work Phone: [facility] 09-01-2022 09:31-0400 Diastolic blood pressure 81 mm[Hg] Dr. Purnima Macedo Work Phone: [facility] 09-01-2022 09:31-0400 Heart rate 65 /min Dr. Purnima Macedo Work Phone: [facility] 09-01-2022 09:31-0400 Respiratory rate 18 /min Dr. Purnima Macedo Work Phone: [facility] 09-01-2022 09:31-0400 SaO2% (BldA) [Mass fraction] 99 % Dr. Purnima Macedo Work Phone: [facility] 09-01-2022 09:31-0400 Systolic blood pressure 135 mm[Hg] Dr. Purnima Macedo Work Phone: [facility] 01-05-2022 10:21-0500 Diastolic Blood Pressure NBP [address] IZABELA NUÑEZ MD [facility] 01-05-2022 10:21-0500 Heart rate 69 /min DR IZABELA NUÑEZ MD [facility] 01-05-2022 10:21-0500 Respiratory rate 14 /min DR IZABELA NUÑEZ MD [facility] 01-05-2022 10:21-0500 Systolic Blood Pressure NBP [address] IZABELA NUÑEZ MD [facility] 01-05-2022 10:16-0500 Diastolic Blood Pressure NBP [address] IZABELA NUÑEZ MD [facility] 01-05-2022 10:16-0500 Heart rate 71 /min DR IZABELA NUÑEZ MD [facility] 01-05-2022 10:16-0500 Respiratory rate 14 /min DR IZABELA NUÑEZ MD [facility] 01-05-2022 10:16-0500 Systolic Blood Pressure NBP [address] IZABELA NUÑEZ MD [facility] 01-05-2022 10:10-0500 Diastolic Blood Pressure NBP [address] IZABELA NUÑEZ MD [facility] 01-05-2022 10:10-0500 Heart rate 76 /min DR IZABELA NUÑEZ MD [facility] 01-05-2022 10:10-0500 Respiratory rate 22 /min DR IZABELA NUÑEZ MD [facility] 01-05-2022 10:10-0500 Systolic Blood Pressure NBP [address] IZABELA NUÑEZ MD [facility] 01-05-2022 09:21-0500 Body height 170.[address] IZABELA NUÑEZ MD [facility] 01-05-2022 09:21-0500 Body temperature 96.8 [degF] DR IZABELA NUÑEZ MD [facility] 01-05-2022 09:21-0500 Body weight 77.[address] IZABELA NUÑEZ MD [facility] 01-05-2022 09:21-0500 Body weight 26.68 kg/m2 DR IZABELA NUÑEZ MD [facility] 01-05-2022 09:21-0500 diastolic 82 mm[Hg] DR IZABELA NUÑEZ MD [facility] 01-05-2022 09:21-0500 Heart rate 97 /min DR IZABELA NUÑEZ MD [facility] 01-05-2022 09:21-0500 systolic 134 mm[Hg] DR IZABELA NUÑEZ MD [facility] 01-05-2022 09:09-0500 Body height 170.[address] IZABELA NUÑEZ MD [facility] 01-05-2022 09:09-0500 Body temperature 97.7 [degF] DR IZABELA NUÑEZ MD [facility] 01-05-2022 09:09-0500 Body weight 77.[address] IZABELA NUÑEZ MD [facility] 01-05-2022 09:09-0500 diastolic 86 mm[Hg] DR IZABELA NUÑEZ MD [facility] 01-05-2022 09:09-0500 Heart rate 84 /min DR IZABELA NUÑEZ MD [facility] 01-05-2022 09:09-0500 systolic 126 mm[Hg] DR IZABELA NUÑEZ MD [facility] 06-24-2017 11:19-0400 BMI (Body Mass Index) 26.84 kg/m2 MD Deb Juarez [facility] Work Phone: 06-24-2017 11:19-0400 BP Diastolic [...] Respiratory Rate 20 /min Ketan Gibbons MD [facility] Work Phone: 06-24-2017 11:19-0400 Weight 77.75 kg Ketan Gibbons MD [facility] Work Phone: 05-21-2016 14:50-0400 Heart rate 79 /min Harumi DeFinis [facility] Work Phone: 05-21-2016 14:36-0400 BMI (Body Mass Index) 26.75 kg/m2 [facility] DeFinsharon [facility] Work Phone: 05-21-2016 14:36-0400 BP Diastolic 82 mm[Hg] Harumi DeFinis [facility] Work Phone: 05-21-2016 14:36-0400 BP Systolic 120 mm[Hg] Harumi DeFinis [facility] Work Phone: 05-21-2016 14:36-0400 BSA (Body Surface Area) 1.89 m2 Harumi DeFinis [facility] Work Phone: 05-21-2016 14:36-0400 Pulse (Heart Rate) 79 /min Harumi DeFinis [facility] Work Phone: 05-21-2016 14:36-0400 Respiratory Rate 16 /min Harumi DeFinis [facility] Work Phone: 05-21-2016 14:36-0400 Weight 77.47 kg Harumi DeFinis [facility] Work Phone: 05-02-2014 09:33-0400 Height 170.18 cm Harumi DeFinis [facility] Work Phone: Encounters Encounter Date Encounter Type Care Provider Facility Start: 07-11-2025 End: 07-11-2025 Patient encounter procedure Jeovany Spear [facility] Work Phone: Start: 07-11-2025 End: 07-11-2025 ambulatory Jimmie Coffman MD Work Phone: [facility] Start: 03-01-2025 End: 03-01-2025 ambulatory Chalon Augustus Facility:[facility] Start: 02-20-2025 End: 02-20-2025 ambulatory Jimmie Coffman MD Work Phone: [facility] Work Phone: Start: 02-20-2025 End: 02-20-[address] Jimmie Coffman MD -[facility] - [facility] Work Phone: Start: 02-20-2025 End: 02-20-2025 ambulatory Chalon Augustus Facility:[facility] Start: 01-08-2025 End: 01-08-[address] Jimmie Coffman MD -[facility] Work Phone: Start: 01-08-2025 End: 01-08-2025 ambulatory Chalgerson Augustus Facility:[facility] Start: 12-14-2024 End: 12-14-[address] [facility] Start: 12-14-2024 End: 12-14-2024 ambulatory Chalon Augustus Facility:[facility] Start: 10-17-2024 End: 10-17-2024 ambulatory Chalon Augustus Facility:[facility] Start: 08-10-2024 ambulatory Radha ARMANDO Facility:[facility] Start: 08-04-2024 End: 08-04-2024 ambulatory Chalon Augustus Facility:[facility] Start: 07-26-2024 ambulatory Radha ARMANDO Facility:[facility] Start: 11-25-2023 End: 11-25-2023 ambulatory DO Alondra Licea Work Phone: [facility] Work Phone: Start: 11-25-2023 End: 11-25-2023 Patient encounter procedure DO Alondra Licea Work Phone: [facility] [place] Work Phone: Start: 08-03-2023 End: 08-03-2023 ambulatory DO Alondra Licea Work Phone: [facility] Work Phone: Start: 08-03-2023 End: 08-03-2023 Patient encounter procedure Alondra Cohennger Work Phone: [facility] Work Phone: Start: 12-04-2022 End: 12-04-[address] Purnima Macedo Work Phone: [facility] Start: 11-30-2022 End: 11-30-[address] Purnima Macedo Work Phone: [facility] Work Phone: Start: 11-30-2022 End: 11-30-[address] Purnima Macedo Work Phone: [facility] Start: 09-01-2022 End: 09-01-[address] Purnima Macedo Work Phone: [facility] Start: 01-05-2022 End: 01-05-[address] IZABELA NUÑEZ MD [facility] Start: 08-09-2017 End: 08-09-2017 Ambulatory PHYSICAL EMPLOYMENT [facility] Start: 05-31-2017 End: 05-31-2017 Ambulatory KETAN GIBBONS [facility] Procedures Date Procedure Procedure Detail Performing [...] counseling Adithya Kam Start: 05-21-2016 End: 05-21-2016 NURSING PROGRAM CHAIR Radha Jane PA-C Work Phone: Start: 05-21-2016 [...] S Edwige, MD Start: 05-02-2014 End: 05-02-2014 NURSING PROGRAM CHAIR Ketan Gibbons MD Start: 05-02-2014 End: 05-02-2014 [...] 06-22-2017 *Hepatic Function Panel *Hepatic Function Panel [facility] Work Phone: Start: 12-22-2017 End: 06-22-2017 Lipid panel [AGGREGATE] *Lipid Profile CC PCP [facility] Work Phone: Start: 06-24-2017 End: 06-24-2017 Appointment Appointment [facility] Work Phone: Start: 06-24-2017 End: 06-24-2017 *Hepatic Function Panel *Hepatic Function Panel [facility] Work Phone: Start: 06-24-2017 End: 06-24-2017 Follow Up Appt 6 months Follow Up Appt 6 months [facility] Work Phone: Start: 06-24-2017 End: 06-24-2017 Follow Up Appt Other Follow Up Appt Other [facility] Work Phone: Start: 06-24-2017 End: 06-24-2017 Lipid panel [AGGREGATE] *Lipid Profile CC PCP [facility] Work Phone: Start: 11-20-2016 End: 06-04-2017 *Hepatic Function Panel *Hepatic Function Panel [facility] Work Phone: Start: 11-20-2016 End: 06-04-2017 Lipid panel [AGGREGATE] *Lipid Profile CC PCP [facility] Work Phone: Start: 05-21-2016 End: 05-21-2016 NURSING PROGRAM CHAIR NURSING PROGRAM CHAIR [facility] Work Phone: Start: 05-21-2016 End: 05-21-2016 Follow Up Appt 1 year Follow Up Appt 1 year [facility] Work Phone: Start: 11-19-2015 End: 05-21-2016 *Hepatic Function Panel *Hepatic Function Panel [facility] Work Phone: Start: 11-19-2015 End: 05-21-2016 Lipid panel [AGGREGATE] *Lipid Profile CC PCP [facility] Work Phone: Start: 05-22-2015 End: 05-22-2015 Follow Up Appt 1 year Follow Up Appt 1 year [facility] Work Phone: Start: 05-22-2015 End: 05-22-2015 MMM MMM [facility] Work Phone: Start: 01-20-2015 End: 10-11-2014 *Hepatic Function Panel *Hepatic Function Panel [facility] Work Phone: Start: 01-20-2015 End: 10-11-2014 Lipid panel [AGGREGATE] *Lipid Profile CC PCP [facility] Work Phone: Start: 09-22-2014 End: 10-10-2014 *Hepatic Function Panel *Hepatic Function Panel [facility] Work Phone: Start: 09-22-2014 End: 10-10-2014 Lipid panel [AGGREGATE] *Lipid Profile CC PCP [facility] Work Phone: Start: 05-02-2014 End: 10-10-2014 *Hepatic Function Panel *Hepatic Function Panel [facility] Work Phone: Start: 05-02-2014 End: 05-02-2014 Cardiovascular stress test using treadmill Treadmill stress test (no imaging) [facility] Work Phone: Start: 05-02-2014 End: 05-02-2014 NURSING PROGRAM CHAIR NURSING PROGRAM CHAIR [facility] Work Phone: Start: 05-02-2014 End: 05-02-2014 Follow Up Appt 1 year Follow Up Appt 1 year [facility] Work Phone: Start: 05-02-2014 End: 10-10-2014 Lipid panel [AGGREGATE] *Lipid Profile CC PCP [facility] Work Phone: Start: 04-04-2014 End: 04-03-2014 *Hepatic Function Panel *Hepatic Function Panel [facility] Work Phone: Start: 04-04-2014 End: 04-03-2014 Lipid panel [AGGREGATE] *Lipid Profile CC PCP [facility] Work Phone: Start: 06-12-2013 End: 06-23-2013 Lipid panel [AGGREGATE] *Lipid Profile CC PCP [facility] Work Phone: Start: 05-02-2013 End: 05-02-2013 NURSING PROGRAM CHAIR NURSING PROGRAM CHAIR [facility] Work Phone: Start: 05-02-2013 End: 05-02-2013 Follow Up Appt 1 year Follow Up Appt 1 year [facility] Work Phone: Start: 12-23-2012 End: 05-02-2013 *Hepatic Function Panel *Hepatic Function Panel [facility] Work Phone: Start: 12-23-2012 End: 05-02-2013 Lipid panel [AGGREGATE] *Lipid Profile [facility] Work Phone: Start: 04-29-2012 End: 09-28-2012 *Hepatic Function Panel *Hepatic Function Panel [facility] Work Phone: Start: 04-29-2012 End: 04-29-2012 Follow Up Appt 1 year Follow Up Appt 1 year [facility] Work Phone: Start: 04-29-2012 End: 09-28-2012 Lipid panel [AGGREGATE] *Lipid Profile [facility] Work Phone: Blood chemistry [facility] Patient Education [facility] Work Phone: Payers Date Payer Category Payer Self-pay [id number] 2023 Unknown [id number] [facility] [id number] Medicare [id number] Unknown [id number] Unknown [id number] 2.16.8 [id number] Unknown [id number] 2.16.8 [id number] Unknown [id number] 2.16.8 [id number] Unknown [id number] 2.16.8 [id number] Unknown [id number] 2.16.8 [id number] Unknown [id number] 2.16.8 [id number] Unknown [id number] 2.16.8 [id number] Unknown [id number] 2.16.8 [id number] Unknown [id number] 2.16.8 [id number] Social History Date Type Detail Facility Start: 10-07-2020 Never smoked t obacco (finding) [facility] Start: 1955 Sex Assigned At Male A [facility] Start: 12-04-2022 End: 08-03-2023 Tobacco smoking status ILIS Unknown if ever smoked [facility] Start: 08-03-2023 End: 03-01-2025 Tobacco smoking status NHIS Ex-smoker (finding) [facility] Start: 02-26-2025 Sex Male (finding) [facility] Evaluation + Plan note 01-05-2022 Note Date & Type Note Facility 01-05-2022 Evaluation + Plan note Extrac nohemi from: Title:Clinical Document Author:IZABELA NUÑEZ Date:01/05/22 [facility] ADMISSION HISTORY AN D PHYSICIAL CHIEF COMPLAINT: HISTORY OF PRESENT ILLNESS: REVIEW OF SYSTEMS: ACTIVE PROBLEMS: (3) GERD (gastroesophageal reflux disease) (098972675) Hypercholesterolemia (71691043) Tubulovillous adenoma of colon (1743121742) MEDICATIONS: Active Inpt Meds: None Active PRN Meds: None One Time Meds: None Active IV Meds: Lactated Ringers Infusion 1,000 mL (LR 1,000 mL) Start: 01/05/22 9:03:00 EST, Rate: 50 mL/hr ALLERGIES: (1) Lipitor FAMILY HISTORY: SOCIAL HISTORY: PHYSICAL EXAM: VITALS: [id number](kg) 01/05 09:2136.0134/[id number]--22/14 77.3 01/05 09:0936.5126/[id number]/14 77.3 24 Hr Tmax: 36.5 at 01/05 [...] changes to the H&P unless noted below. [facility] Hospital Discharge instructions 01-05-2022 Note Date & [...] until you are awake and alert. Take syqi-atd-rmvsarq and prescription medicines only as told by [...] 08/29/2014 Document Revised: 10/21/2018 Document Reviewed: 02/27/2017 [employer] Patient Education 2020 [employer]. 01/05/2022 10:30:06 Colon Biopsy, Care After Colon [...] a slower pace than normal. ?Eat soft, uxtl-wh-ctyhze foods. ?Rest often. Take uvkt-dpl-ihfncyr or prescription medicines only as told by [...] 04/19/2018 Document Revised: 10/21/2018 Document Reviewed: 04/19/2018 [employer] Patient Education 2020 [employer] Follow Up Care 12/25/2021 07:51:34 With:IZABELA NUÑEZ MD Address: [phone] When: Unknown Comments:REPEAT COLONOSCOPY IN [address] [facility] Evaluation note Note Date & Type Note Facility Evaluation note Diagnosis Onset Date Elevated blood-pressure read ing without diagnosis of hypertension acute HLD (hyperlipidemia) chronic Essential hypertension acute HLD (hyperlipidemia) [facility] Work Phone: Evaluation note Note Date & Type Note Facility Evaluation note Diagnosis Onset Date Essential hypertension acute HLD (hyperlipidemia) chronic [facility] Work Phone: Evaluation note Note Date & Type Note Facility Evaluation note No assessment information availa ble [facility] Work Phone: Hospital course Narrative Note Date & Type Note Facility Hospital course Narrative No data available for this section [facility] Reason for referral (narrative) Note Date & Type Note Facility Reason for referral (narrative) No reason for referral information available [facility] Work Phone: Summary Purpose Family History [...] section and content) DATE CREATED AUTHOR 05/18/2018 [facility] DATE CREATED AUTHOR AUTHOR'S ORGANIZ ATION 02/26/2022 [facility] ([place]) DATE CREATED AUTHOR AUTHOR'S ORGANIZ ATION 07/13/2025 [facility] Care Teams (unrecognized sec tion and content) [...] Team Status: Inactive Member Role Status Dates Jimime Coffman MD Primary Care Provider Active St [...] BE BASED ON THE PRIMARY CLINICAL RECORDS. [facility] [employer] provides no warranty or guarantee of the accuracy or completeness of information in this document.
[2025-11-18 21:19] VITALS: O2SAT 98; BMI 25.5
[2025-11-18 22:05] VITALS: BP 168/83; PULSE 64; RESP 18; TEMP 36.7; O2SAT 98
[2025-11-19 05:56] VITALS: BP 138/88; PULSE 68; RESP 16; TEMP 36.6; O2SAT 98
--- NOTE | 2025-11-19 07:00 | MRI_ITS ---
PROCEDURE: BRAIN WITHOUT CONTRAST N/A REASON FOR EXAM: TRANSIENT AMNESIA TECHNIQUE: Procedure Code: MRIBR Modality: MR Procedure: BRAIN WITHOUT CONTRAST Multiplanar and multisequence images were obtained. COMPARISON: CT imaging from November 18, 2025 FINDINGS: Brain: Moderate cerebral atrophy and chronic periventricular white matter disease. Ventricles: Consistent with the overall degree of cerebral atrophy. No acute brain MR process. Negative diffusion trace images. No pathological signal voids on gradient imaging suggesting no hemorrhage. MRI/Brain without Contrast IMPRESSION: No acute brain MR process Reading Location: [facility]
--- NOTE | 2025-11-19 10:29 | ECHOD_ITS ---
Reason For Study Reason For Study: TIA/CVA Procedure This was a 2D Doppler, Color Flow transthoracic echocardiogram. Exam performed portable in patient room. Left Ventricle Normal-sized left ventricle. Left ventricular EF by Padilla's biplane: 65%. Normal diastolic function. No regional wall motion abnormalities noted. Right Ventricle Normal right ventricle. Normal systolic function. Unable to estimate RV systolic pressure due to insufficient tricuspid regurgitant envelope. Atria The left and right atria are normal. Estimated RA pressure: 3 mmHg. Normal atrial septum. Mitral Valve Normal mitral valve. Trace mitral regurgitation. No mitral stenosis. Tricuspid Valve Normal tricuspid valve. Trace tricuspid regurgitation. No tricuspid stenosis. Aortic Valve Trileaflet aortic valve. No hemodynamically significant aortic stenosis. No aortic regurgitation. Pulmonic Valve Normal pulmonic valve. No pulmonic stenosis. No pulmonic regurgitation. Great Vessels Normal sized aortic root. Normal ascending aorta. Pericardium/Pleural No pericardial effusion. MMode/2D Measurements & Calculations LVIDd: 4.9 cm IVSd: 0.92 cm Ao root diam: 2.7 cm LVIDs: 2.8 cm LVPWd: 1.2 cm RVDd: 3.7 cm FS: 43.0 % LAV(MOD-bp): 47.8 ml LVAd ap4: 25.2 cm2 SV(MOD-sp4): 48.3 ml LAV(MOD-bp) Indexed: 25.8 ml/m2 LVLd ap4: 6.9 cm SI(MOD-sp4): 26.1 ml/m2 LAV(MOD-sp2): 46.5 ml EDV(MOD-sp4): 76.1 ml LAV(MOD-sp4): 45.6 ml EDV(sp4-el): 78.5 ml LVAs ap4: 13.9 cm2 LVLs ap4: 6.1 cm ESV(MOD-sp4): 27.7 ml ESV(sp4-el): 27.1 ml EF(MOD-sp4): 63.5 % EF(sp4-el): 65.5 % SV(sp4-el): 51.4 ml LA A4 area: 17.2 cm2 LA dimension(2D): 3.9 cm RA A4 area: 15.6 cm2 Time Measurements MV dec time: 0.18 sec Doppler Measurements & Calculations MV E max john: 67.6 cm/sec Lat Peak E' John: 9.0 cm/sec Med Peak E' John: 9.3 cm/sec MV A max john: 58.7 cm/sec E/E' lat: 7.5 E/E' med: 7.3 MV E/A: 1.2 MV V2 max: 82.8 cm/sec MV P1/2t max john: 83.7 cm/sec Ao V2 max: 154.5 cm/sec MV max P.7 mmHg MV P1/2t: 64.1 msec Ao max P.5 mmHg MV V2 mean: 44.0 cm/sec Ao V2 mean: 105.4 cm/sec MV mean P.95 mmHg MV dec slope: 382.6 cm/sec2 Ao mean P.1 mmHg MV V2 VTI: 25.1 cm MVA(P1/2t): 3.4 cm2 Ao V2 VTI: 32.8 cm AV (velocity ratio): 0.68 LV V1 max: 102.3 cm/sec PA V2 max: 124.9 cm/sec LV V1 max P.2 mmHg PA V2 mean: 97.6 cm/sec LV V1 mean P.3 mmHg LV V1 mean: 70.3 cm/sec LV V1 VTI: 22.3 cm ECHO/Echo Complete Interpretation Summary Normal left ventricular EF by Padilla's biplane: 65% Normal left ventricular diastolic function Normal right ventricular systolic function No hemodynamically significant valvular disease Ordering Physician: Imelda Sandhu Performed By: Kevin Valencia RCS
[2025-11-19 11:56] VITALS: BP 121/78; PULSE 71; RESP 16; TEMP 36.6; O2SAT 96
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
[2025-11-19 13:15] LABS: Cholesterol 275 mg/dL (<=200); Low Density Lipoprotein Calc. 194 mg/dL; Triglycerides 183 mg/dL; Very Low Density Lipoprotein 37 mg/dL (5-40); cholesterol:hdl ratio screen 5.93
--- NOTE | 2025-11-19 14:01 | CASEMGMT ---
Social Work- Per MRI documentation, no signs of stroke at this time and no need for PHQ9. MARIBETH Adorno
--- NOTE | 2025-11-19 15:05 | PCM.PROGNOTE ---
Subjective Subjective Patient seen and examined this morning. He had no complaints and said he felt better. His son and lvkasrhl-fp-arq were by his bedside. He cannot remember what happened but he came to the hospital. He denies any dizziness or lightheadedness, any focal weakness or any other symptoms. Review of systems otherwise negative. He has remained hemodynamically stable. Objective Data Objective Data Vital Signs: Vital Signs Temp Pulse Resp BP Pulse Ox O2 Del Method 97.8 F 68 16 138/88 H 98 Room Air 11/19/25 05:56 11/19/25 05:56 11/19/25 05:56 11/19/25 05:56 11/19/25 05:56 11/19/25 05:56 Oxygen Delivery Method Room Air Weight: 163 lb Body Mass Index (BMI) 25.5 Intake & Output: Intake and Output for Last 24 Hours 11/17/25 11/18/25 11/19/25 23:59 23:59 23:59 Intake Total 600 / 600 Balance 600 / 600 Lab / Micro Data 11/18/25 18:32 11/18/25 18:32 Labs: Laboratory Results - last 24 hr 11/18/25 18:32: WBC 5.7, RBC 4.75, Hgb 14.5, Hct 40.7, MCV 85.7, MCH 30.5, MCHC 35.6, RDW Std Deviation 39.4, RDW Coeff of Emory 12.7, Plt Count 249, MPV 9.0, Immature Gran % (Auto) 0.200, Neut % (Auto) 62.6, Lymph % (Auto) 21.9, Dyer % (Auto) 11.7 H, Eos % (Auto) 2.6, Baso % (Auto) 1.0, Absolute Neuts (auto) 3.6, Absolute Lymphs (auto) 1.25, Nucleated RBC % 0, PT 12.9, INR 1.0, APTT 28.5, Sodium 140, Potassium 4.0, Chloride 104, Carbon Dioxide 25.5, Anion Gap 11, BUN 14, Creatinine 0.89, Estim Creat Clear Calc 74.27, Est GFR (MDRD) Non-Af 93, BUN/Creatinine Ratio 15.2, Glucose 84, Calcium 9.5, Total Bilirubin 0.39, AST 39 H, ALT 45, Alkaline Phosphatase 78, Total Protein 6.7, Albumin 4.2, Globulin 2.5, Albumin/Globulin Ratio 1.6, Ethyl Alcohol < 10.1 11/18/25 19:05: Urine Color Straw, Urine Clarity Clear, Urine pH 7.0, Ur Specific Dundee 1.010, Urine Protein 15 H, Urine Glucose (UA) Normal, Urine Ketones Negative, Urine Occult Blood Negative, Urine Nitrite Negative, Urine Bilirubin Negative, Urine Urobilinogen Normal, Ur Leukocyte Esterase Negative, Urine RBC 0 SEEN, Urine WBC 0 SEEN, Ur Squamous Epith Cells 0 SEEN, Urine Bacteria 1+, Urine Mucus 0 SEEN, Urine Opiates Screen NEGATIVE, U Buprenorphine Qual NEGATIVE, Ur Oxycodone Screen NEGATIVE, Urine Methadone Screen NEGATIVE, Urine Fentanyl Screen NEGATIVE, Ur Barbiturates Screen NEGATIVE, Ur Phencyclidine Scrn NEGATIVE, Ur Amphetamines Screen NEGATIVE, U Benzodiazepines Scrn NEGATIVE, Urine Cocaine Screen NEGATIVE, U Cannabinoids Screen NEGATIVE 11/18/25 19:14: Ammonia 28.4, TSH 5.900 H, Free T4 0.80, Free T3 pg/dL 2.9 11/19/25 12:15: Triglycerides 183, Cholesterol 275 H, LDL Cholesterol, Calc 194, VLDL Cholesterol 37, HDL Cholesterol 46, Cholesterol/HDL Ratio 5.93 Radiography Diagnostic Testing: Radiology Impression Brain CT 11/18/25 18:40 IMPRESSION: No acute intracranial abnormalities. Reading Location: [facility] Head/Neck CTA 11/18/25 18:40 IMPRESSION: No acute vascular abnormalities of the head or neck. Reading Location: [facility] Chest X-Ray 11/18/25 18:45 IMPRESSION: No acute cardiopulmonary findings. Reading Location: [facility] Brain MRI 11/19/25 07:00 IMPRESSION: No acute brain MR process Reading Location: [facility] Echocardiogram 11/19/25 10:29 Interpretation Summary Normal left ventricular EF by Padilla's biplane: 65% Normal left ventricular diastolic function Normal right ventricular systolic function No hemodynamically significant valvular disease Ordering Physician: Imelda Sandhu Performed By: Kevin Valencia RCS Physical Exam Const alert, oriented x3 and no apparent distress General Appearance: cooperative HEENT normocephalic, moist oral mucous membranes and oropharynx normal Eyes EOMs intact bilaterally Neck supple and no JVD Lymph Lymphatic: no lymphedema noted Resp normal respiratory effort, normal air movement and clear to auscultation bilaterally Cardio regular rate, regular rhythm, S1 normal heart sound, S2 normal heart sound and no murmurs GI normal to inspection, nondistended, normoactive bowel sounds, soft to palpation and non-tender Extremity normal capillary refill, no clubbing, cyanosis or edema and no calf tenderness General Extremity: no tenderness to palpation of joints or extremities Skin General Skin Exam: no breakdown Neuro no focal motor deficits and no sensory deficits noted Motor Exam: general weakness Psych thought process normal and cooperative Appearance: appropriate Assessment & Plan Assessment/Plan (1) Anterograde amnesia: PLAN: Plan #Transient global amnesia v TIA Was brought in with a complaint of new onset forgetfulness and confusion. Patient cannot remember what happened. His called EMS and was brought into the ED. CT of the brain showed no acute intracranial pathology. CTA head and neck showed no hemodynamically significant stenosis. He does have a history of hyperlipidemia with his total cholesterol being nearly 400. He was placed on cholesterol medication but has stopped taking it because he was concerned about dementia. Patient however states he has resumed taking it. Urine tox was also negative. MRI of the brain pending. consult neurology 2D echo showed EF of 65% with normal diastolic function and no regional wall motion abnormalities. PT OT on board. For precautions. #Hyperlipidemia: Lipid levels are poorly controlled as his total cholesterol in 2024 was nearly 400. Was on Crestor and took himself off of it because he said he was concerned about dementia. He says he has now resumed taking it Counseled to be compliant with his cholesterol medication. Check lipid panel. # Hypertension: Blood pressure poorly controlled. On lisinopril. Blood pressure did come down to 138/88 today. Continue lisinopril. IV hydralazine prn # DVT prophylaxis, encourage ambulation. Charges/Coding Visit Charges Inpatient E&M: 47293 Subs Hosp L2
--- NOTE | 2025-11-19 15:54 | CASEMGMT ---
DOBSON Met with patient to complete DOBSON form. DOBSON form and its content were verbally explained and patient's questions were answered to the best of my ability.? Patient voiced understanding and signed DOBSON form.? Patient provided a copy of signed DOBSON form and original placed in patient's chart.? Patient had no further questions. Corina Issa, Discharge Planning Asst
[2025-11-19 18:00] VITALS: BP 136/78; PULSE 68; RESP 16; TEMP 36.6; O2SAT 98
[2025-11-19 23:00] VITALS: PULSE 61; RESP 16
[2025-11-20] VITALS: BP 124/81; PULSE 61; RESP 16; TEMP 36.9; O2SAT 96
[2025-11-20 03:53] VITALS: BP 130/80; PULSE 63; RESP 16; TEMP 36.6; O2SAT 94
[2025-11-20 06:29] LABS: Hematocrit 40.9 % (40-54); Hemoglobin 14.1 g/dL (13.0-16.5); Immature Granulocytes Count 0.020 X10^3/uL (0.0-0.0); Mean Corp Hgb Conc 34.5 g/dL (32-36); Mean Corpuscular Volume 87.0 fL (80-94); Mean Platelet Vol. 9.3 fl (6.2-12.0); NRBC Flagged by Analyzer 0 % (0-5); Platelet Count 240 K/mm3 (150-450); RBC Distribution Width CV 12.7 % (11.6-14.6); RBC Distribution Width SD 39.9 fl (35.1-43.9); Red Blood Count 4.70 M/mm3 (4.6-6.2); White Blood Count 5.3 K/mm3 (4.4-11.0)
[2025-11-20 07:02] LABS: Anion Gap 9 (7-18); BUN 13 mg/dL (4-19); BUN/Creat Ratio 17.3 RATIO (10-20); Calcium,Total 9.0 mg/dL (7.6-11.0); Carbon Dioxide 24.9 mmol/L (20.0-29.0); Chloride 107 mmol/L (96-106); Estimated Creatinine Clearance 82.63 ml/min (50-250); Glucose 98 mg/dL (70-99); Potassium 3.9 mmol/L (3.5-5.1)
[2025-11-20 08:03] VITALS: BP 142/81; PULSE 61; RESP 18; TEMP 36.4; O2SAT 100
--- NOTE | 2025-11-20 11:21 | NEURO.CONS ---
Assessment and Plan: Neuro Assessment/Plan FELISA ABBASI is a 69 M with a past medical history of hypertension, HLD, being evaluated by Teleneurology for transient amnesia. <24 hour period of short term memory difficulty/disorientation. MRI brain is unremarkable. Exam is normal. No abnormal movements/staring spells at onset of symptoms. Diagnosis: Transient Global Amnesia Plan: - no further work up from neurology perspective I personally attended this patient and spent a total time of 25 minutes evaluating this patient including clinical assessment, review of chart, medical history imaging, and determining appropriate treatment and workup. HPI Consult Data Date of Consult: 11/20/25 HPI Narrative HPI Narrative: FELISA ABBASI, is a 69 M who presents amnesia. Wednesday night had around 5 pm he began having trouble making memories. He has no memory until later that evening around 09/01. Family reports he was repeating himself, asking the same questions. He had to be frequently reoriented. He is now fully back to baseline. Nothing like this has ever happened before. Family did not notice any abnormal movements or staring at the onset of symptoms. He does report high stress recently. [facility] Medical History Encounter for examination required by Department of Transportation (DOT) Left rotator cuff tear Essential hypertension (~10/17/25) HLD (hyperlipidemia) Home Medications ?Medication ?Instructions ?Recorded ?Last Taken ?Type citalopram 40 mg tablet 40 mg PO DAILY 04/02/23 Unknown History lisinopril 30 mg tablet 30 mg PO QDAY PRN htn 10/17/25 Unknown History rosuvastatin 40 mg tablet 40 mg PO DAILY #90 tabs 10/26/25 Unknown Rx Allergy/AdvReac Type Severity Reaction Status Date / Time No Known Allergies Allergy Verified 11/18/25 18:11 Family History Father CAD (coronary artery disease) Mother HLD (hyperlipidemia) Brother Myocardial infarction Brother Myocardial infarction Surgical History History of hernia surgery Social History Smoking Status: Never smoker alcohol intake: former year quit: 2018 Vital Signs Vital Signs Vital Signs: 11/19/25 11:56 11/19/25 18:00 11/19/25 22:00 Temperature 97.9 F 97.9 F Temperature Source Oral Oral Pulse Rate 71 68 Pulse Strength Normal (2+) Respiratory Rate 16 16 Respiratory Effort Respiratory Depth Respiratory Pattern Blood Pressure 121/78 H 136/78 H Blood Pressure Mean 92 97 Blood Pressure Source Monitor Monitor Blood Pressure Position Semi-Fowlers Semi-Fowlers Blood Pressure Location Left Arm Left Arm Pulse Ox 96 98 Oxygen Delivery Method Room Air Room Air 11/19/25 23:00 11/20/25 00:00 11/20/25 03:53 Temperature 98.4 F 97.9 F Temperature Source Oral Oral Pulse Rate 61 61 63 Pulse Strength Respiratory Rate 16 16 16 Respiratory Effort Normal Respiratory Depth Normal Respiratory Pattern Irregular Blood Pressure 124/81 H 130/80 H Blood Pressure Mean 95 96 Blood Pressure Source Monitor Blood Pressure Position Semi-Fowlers Blood Pressure Location Left Arm Pulse Ox 96 94 Oxygen Delivery Method Room Air Room Air Room Air 11/20/25 08:03 11/20/25 08:06 11/20/25 08:09 Temperature 97.5 F L Temperature Source Oral Pulse Rate 61 Pulse Strength Normal (2+) Respiratory Rate 18 Respiratory Effort Normal Respiratory Depth Normal Respiratory Pattern Normal Blood Pressure 142/81 H Blood Pressure Mean 101 Blood Pressure Source Monitor Blood Pressure Position Sitting Blood Pressure Location Left Arm Pulse Ox 100 Oxygen Delivery Method Room Air Room Air Weight Weight: 73.936 kg Body Mass Index (BMI) 25.5 EEG Results Procedure Details EEG Procedure Details: FELISA ABBASI is a 69 year old M with a past medical history of , who presents for evaluation of Electroencephalogram on DATE at TIME Physical Exam Neuro oriented x3, CN's II-XII intact bilaterally, no sensory deficits noted and gait normal Coordination / Balance: [id number]-[id number] test normal, ypph-hg-[id number] test normal, tandem gait normal, does not sway with eyes open and Romberg test negative Speech: speech normal Gait (Neuro): normal gait Motor Exam: strength 5/5 throughout, no pronator drift, no tremor and no asterixis Lab / Micro Data 11/20/25 06:01 11/20/25 06:01 Labs: Laboratory Results - last 24 hr 11/19/25 12:15: Triglycerides 183, Cholesterol 275 H, LDL Cholesterol, Calc 194, VLDL Cholesterol 37, HDL Cholesterol 46, Cholesterol/HDL Ratio 5.93 11/20/25 06:01: WBC 5.3, RBC 4.70, Hgb 14.1, Hct 40.9, MCV 87.0, MCH 30.0, MCHC 34.5, RDW Std Deviation 39.9, RDW Coeff of [place] 12.7, Plt Count 240, MPV 9.3, Immature Gran % (Auto) 0.400, Neut % (Auto) 65.0, Lymph % (Auto) 21.7, [place] % (Auto) 9.5, Eos % (Auto) 2.6, Baso % (Auto) 0.8, Absolute Neuts (auto) 3.4, Absolute Lymphs (auto) 1.15, Nucleated RBC % 0, Sodium 141, Potassium 3.9, Chloride 107 H, Carbon Dioxide 24.9, Anion Gap 9, BUN 13, Creatinine 0.73, Estim Creat Clear Calc 82.63, Est GFR (MDRD) Non-Af 99, BUN/Creatinine Ratio 17.3, Glucose 98, Calcium 9.0 Imaging Radiology Impression Echocardiogram 11/19/25 10:29 Interpretation Summary Normal left ventricular EF by Padilla's biplane: 65% Normal left ventricular diastolic function Normal right ventricular systolic function No hemodynamically significant valvular disease Ordering Physician: Imelda Sandhu Performed By: Kevin Valencia RCS Active Medications Active Medications Active Medications: Current Medications Generic Name Dose Route Start Last Admin Trade Name Freq PRN Reason Stop Dose Admin Acetaminophen 650 mg 11/18/25 21:27 Acetaminophen 325 Mg Tablet PO Q6H PRN PRN Pain 1-10 Or Fever>100.7 Lisinopril 30 mg 11/18/25 22:45 11/20/25 08:08 Lisinopril 10 Mg Tablet PO 30 mg DAILY OLIVIA Administration Sodium Chloride 10 - 40 ml 11/18/25 21:25 0.9% Saline Lock 10 Ml Syringe IV UD PRN SALINE FLUSH NIHSS NIHSS Nursing Documentation NIHSS Nursing Documentation: NIH Stroke Scale Start: 11/18/25 18:15 Freq: Status: Discharge Protocol: Activity Type Activity Date Activity User E-sign Co-sign Detail Recorded Client Recorded Date Recorded By Document 11/18/25 18:24 [facility] [id number] 11/18/25 18:25 [facility] 11/18/25 18:24 NIH Stroke Scale [NIHSS] A score of 0 is normal or asymptomatic . Total possible score is 42. Inpatient: RN or Physician to activate a stroke alert for onset of new stroke symptoms or with NIHSS increase >/= 3 points. Following change in neurological status, NIHSS will be performed per physician order or more frequently PRN. -1a. Level of Consciousness 0 - Alert; keenly responsive -1b. LOC Questions 1 - Answers ONE question correctly -1c. LOC Commands 0 - Performs BOTH tasks correctly -2. Best Gaze 0 - Normal -3. Visual 0 - No visual loss -4. Facial Palsy 0 - Normal symmetrical movements -5a. Left Arm 0 - No drift; arm holds 90 ( or 45) degrees for full 10 seconds -5b. Right Arm 0 - No drift; arm holds 90 ( or 45) degrees for full 10 seconds -6a. Left Leg 0 - No drift; leg holds 30- degree position for full 5 seconds -6b. Right Leg 0 - No drift; leg holds 30- degree position for full 5 seconds -7. Limb Ataxia 0 - Absent -8. Sensory 0 - Normal; no sensory loss -9. Best Language 0 - No aphasia; normal -10. Dysarthria 0 - Normal -11. Extinction and Inattention 0 - No abnormality -Total 1 Query Text:A score of 0 is normal or asymptomatic. Total possible score is 42 . ED: Notify Physician for NIHSS increase by > / = 3 points. Inpatient: RN or Physician to activate a stroke alert for NIHSS increase of > / = 3 points.
[2025-11-20 13:08] VITALS: BP 132/68; PULSE 72; RESP 18; TEMP 36.3; O2SAT 100
--- NOTE | 2025-11-20 13:09 | DCINST_ITS ---
Discharge Instructions DC O2, CPAP, BIPAP needs Home O2 Discharge instructions: No Dressing / Incision Discharge Activity: Return to Normal Activity Weight Bearing Status: Weight bearing as tolerated Dressing / Incision Call your doctor if you observe: Fever of 101 or Higher, Shortness of breath, Dizziness, Swelling in the ankles and Chest pain Follow Up Care Test Results: Test results from this visit will be discussed in further detail at your follow- up appointment, if applicable. Discharge Plan Admission Admit Date/Time: 11/18/25 20:45 Primary Reason for Your Visit: transient global amnesia/TIA Attending Provider: Imelda Sandhu Primary Care Provider: Jimmie Coffman Consulting Providers: Milagros García; Nikhil Jarvis; Yasmeen Conner; Desi Menjivar; Chio Vaz; Nena Fox; Tony Lei; Blanca Reveles; Yvan Pereira; Santana Elizalde; Lefty Brian; Beth Loaiza; Bernice Reyes; Jesse Dudley; Bernarda Gann; Piter Ko; Tamara Dill; Kevyn Arndt; Vic Kramer; Olvin Mera; Milady Scott; Rick Tripp Instructions Patient Instructions: Transient Global Amnesia Additional Instructions / Restrictions: Patient counseled strongly to be compliant with his statin and blood pressure medication. Discharge Orders/Prescriptions Prescriptions: Continued citalopram 40 mg tablet 40 mg PO DAILY lisinopril 30 mg tablet 30 mg PO QDAY PRN (Reason: htn) rosuvastatin 40 mg tablet 40 mg PO DAILY Qty: 90 3RF Referrals / Follow Up: Jimmie Coffman MD [Primary Care Provider, Family Practice] - Within 1 Week Disposition Disposition (needs filled in before D/C Order can be placed): Home, Self Care
--- NOTE | 2025-11-20 13:09 | PCM.DC.SUM ---
Providers Date of Admission: 11/18/25 Date of Discharge: 11/20/25 Primary Care Physician: Jimmie Coffman MD Consultations 11/19/25 10:31 Consult: Tele-Neurology Routine Consulting Provider: [facility] Reason for Consult: TIA EMERGENT Consult: No MD Notified: Yes Date Notified: 11/19/25 Time Notified: 11:14 Method of Notification: Answering Service Nursing Unit Staff Notify [facility] of Tele-Neurology Consult: Yes Reason For Visit: TRANSIENT GLOBAL AMNESIA Diagnosis Discharge Diagnosis (1) Anterograde amnesia: Status: Acute Code(s): R41.1 - Anterograde amnesia Plan #Transient global amnesia v TIA Was brought in with a complaint of new onset forgetfulness and confusion. Patient cannot remember what happened. His called EMS and was brought into the ED. CT of the brain showed no acute intracranial pathology. CTA head and neck showed no hemodynamically significant stenosis. He does have a history of hyperlipidemia with his total cholesterol being nearly 400. He was placed on cholesterol medication but has stopped taking it because he was concerned about dementia. Patient however states he has resumed taking it. Urine tox was also negative. MRI of the brain pending. consult neurology 2D echo showed EF of 65% with normal diastolic function and no regional wall motion abnormalities. PT OT on board. For precautions. #Hyperlipidemia: Lipid levels are poorly controlled as his total cholesterol in 2024 was nearly 400. Was on Crestor and took himself off of it because he said he was concerned about dementia. He says he has now resumed taking it Counseled to be compliant with his cholesterol medication. Check lipid panel. # Hypertension: Blood pressure poorly controlled. On lisinopril. Blood pressure did come down to 138/88 today. Continue lisinopril. IV hydralazine prn # DVT prophylaxis, encourage ambulation. Medications at Discharge Home Medications citalopram 40 mg tablet 40 mg PO DAILY 04/02/23 lisinopril 30 mg tablet 30 mg PO QDAY PRN htn 10/17/25 rosuvastatin 40 mg tablet 40 mg PO DAILY #90 tabs 10/26/25 Hospital Course Procedures 2-D Echocardiogram Summary of Care Provided Minutes Spent on Discharge: 42 Hospital Course: Patient is a 69-year-old male with a past medical history as outlined was admitted through the ED on 11/18/2025 with complaint of new onset forgetfulness and confusion. He had a past medical history of hypertension and hyperlipidemia. He had not been compliant with his cholesterol medication because he was worried about dementia but said he had started taking it again. His last known well was 5 PM on the day of presentation. His left the house and his son called him and they realized the patient was confused and repeating himself and asking the same question over and over again. He also was not aware of his surroundings. He had no loss of consciousness or headache, blurred vision, focal motor or sensory deficits or any weakness in any extremity. Review of systems otherwise negative. CT of the brain showed no acute intracranial pathology. CTA of the head and neck showed no hemodynamically significant stenosis and MRI of the brain was also negative. Urine tox was also negative. He was admitted to be managed for transient global amnesia. He had 2D echo which showed EF of 65% with no regional wall motion abnormalities. Valves were also largely normal. Neurology reviewed him and that his symptoms were due to the transient global amnesia. Cholesterol panel done showed total cholesterol of 275 with LDL of 194 and HDL of 46 as well as triglycerides of 183. This was markedly improved from his lipid panel in September 2025 which showed total cholesterol 449 with LDL of 362. Was consulted and compliant with the statins. He was discharged home on 11/20/2025. He is follow-up with his primary care doctor within 1 to 2 weeks. Patient seen and examined prior to discharge. He had no active complaints and had an uneventful night. Review of systems otherwise negative. Labs and vitals reviewed. Home medication reviewed and reconciled. Physical Exam Const alert, oriented x3 and no apparent distress General Appearance: cooperative HEENT normocephalic, head/scalp atraumatic, hearing grossly normal bilaterally, moist oral mucous membranes and oropharynx normal Mouth: oral and palatal mucosa normal Eyes EOMs intact bilaterally and conjunctivae normal Neck supple and no JVD Lymph Lymphatic: no lymphedema noted Resp normal respiratory effort, normal air movement, no use of accessory muscles and clear to auscultation bilaterally Cardio regular rate, regular rhythm, S1 normal heart sound, S2 normal heart sound and no murmurs GI normal to inspection, nondistended, normoactive bowel sounds, soft to palpation and non-tender Extremity normal to inspection, full ROM, normal capillary refill, no joint enlargement, no clubbing, cyanosis or edema, no calf tenderness and no pedal edema General Extremity: no tenderness to palpation of joints or extremities Skin no rashes or lesions noted General Skin Exam: no breakdown Neuro oriented x3, moves all extremities, no focal motor deficits and no sensory deficits noted Neuro Narrative: P Sensorium / Orientation: awake and alert Motor Exam: strength 5/5 throughout Psych thought process normal and cooperative Appearance: appropriate Weight / BMI Weight Weight: 163 lb Body Mass Index (BMI) 25.5 ABG / Lab / Microbiology Data 11/20/25 06:01 11/20/25 06:01 Laboratory: Laboratory Results - last 24 hr 11/20/25 06:01: WBC 5.3, RBC 4.70, Hgb 14.1, Hct 40.9, MCV 87.0, MCH 30.0, MCHC 34.5, RDW Std Deviation 39.9, RDW Coeff of [place] 12.7, Plt Count 240, MPV 9.3, Immature Gran % (Auto) 0.400, Neut % (Auto) 65.0, Lymph % (Auto) 21.7, [place] % (Auto) 9.5, Eos % (Auto) 2.6, Baso % (Auto) 0.8, Absolute Neuts (auto) 3.4, Absolute Lymphs (auto) 1.15, Nucleated RBC % 0, Sodium 141, Potassium 3.9, Chloride 107 H, Carbon Dioxide 24.9, Anion Gap 9, BUN 13, Creatinine 0.73, Estim Creat Clear Calc 82.63, Est GFR (MDRD) Non-Af 99, BUN/Creatinine Ratio 17.3, Glucose 98, Calcium 9.0 Radiography Diagnostic Testing: Radiology Impression Echocardiogram 11/19/25 10:29 Interpretation Summary Normal left ventricular EF by Padilla's biplane: 65% Normal left ventricular diastolic function Normal right ventricular systolic function No hemodynamically significant valvular disease Ordering Physician: Imelda Sandhu Performed By: Kevin Valencia RCS D/C Instructions Discharge Activity: Return to Normal Activity Weight Bearing Status: Weight bearing as tolerated Call your doctor if you observe: Fever of 101 or Higher, Shortness of breath, Dizziness, Swelling in the ankles and Chest pain DC O2, CPAP, BIPAP Needs Home O2 Discharge instructions: No DC home with Oxygen: No Patient's Goals Of Care - F/U Goals Reviewed Goals of care reviewed with patient: Yes - No change Meaningful Use Info Meaningful Use Meaningful Use Diagnoses (Choose all that apply): None applicable Discharge Plan Admission Admit Date/Time: 11/18/25 20:45 Primary Reason for Your Visit: transient global amnesia/TIA Attending Provider: Imelda Sandhu Primary Care Provider: Jimmie Coffman Consulting Providers: Milagros García; Nikhil Jarvis; Yasmeen Conner; Desi Menjivar; Chio Vaz; Nena Fox; Tony Lei; Blanca Reveles; Yvan Pereira; Santana Elizalde; Lefty Brian; Beth Loaiza; Bernice Reyes; Jesse Dudley; Bernarda Gann; Piter Ko; Tamara Dill; Kevyn Arndt; Vic Kramer; Olvin Mera; Milady Scott; Rick Tripp Instructions Patient Instructions: Transient Global Amnesia Additional Instructions / Restrictions: Patient counseled strongly to be compliant with his statin and blood pressure medication. Discharge Orders/Prescriptions Prescriptions: Continued citalopram 40 mg tablet 40 mg PO DAILY lisinopril 30 mg tablet 30 mg PO QDAY PRN (Reason: htn) rosuvastatin 40 mg tablet 40 mg PO DAILY Qty: 90 3RF Referrals / Follow Up: Jimmie Coffman MD [Primary Care Provider, Family Practice] - Within 1 Week Disposition Disposition (needs filled in before D/C Order can be placed): Home, Self Care Charges/Coding Visit Charges Inpatient E&M: 21713 Disch Hosp >30min
== END 2025-11-20 13:39 | disposition home or self-care (01) ==
LOC: ED 20:35 → MS3 20:50
PROVIDERS: Admitting Provider Internal Medicine; Emergency Provider Emergency Medicine; PCP Family Medicine; Visit Provider Student in an Organized Health Care Education/Training Program
DX: G45.4 Transient global amnesia (principal); E78.00 Pure hypercholesterolemia, unspecified; I10 Essential (primary) hypertension; Z79.899 Other long term (current) drug therapy; Z87.891 Personal history of nicotine dependence
CPT/HCPCS: 36415; 70450; 70496; 70498; 70551; 71045; 80048; 80053; 80061; 80307; 81001; 82077; 82140; 84439; 84443; 84481; 85025; 85610; 85730; 93005; 93306; 97161; 99221; 99284; Q9967; A4216; G0378